=== PATIENT | male | born 1940 | race Caucasian/White ===

== ENCOUNTER → 2016-05-17 | Outpatient (CLI) | payer MEDICARE, OTHER | LOC: GMAH 11:31 | PROVIDERS: ATTEND Family Medicine | DX: E78.2 Mixed hyperlipidemia (principal); Z12.5 Encounter for screening for malignant neoplasm of prostate | CPT/HCPCS: 84443; 84550; G0103 ==

== ENCOUNTER 2016-09-16 13:37 | Emergency (ER) | payer MEDICARE, OTHER ==
[2016-09-16] MEDS ORDERED: ASPIRIN TABLET 325 MG TAB PO ONE (13:43)
[2016-09-16] MEDS ORDERED: ONDANSETRON INJ 4 MG/2 ML VIAL IV ONE (13:43)
[2016-09-16] MEDS ORDERED: SODIUM CHLORIDE 0.9% (FLUSH) 10 ML SYG IV PRN (13:43)
[2016-09-16] MEDS ORDERED: LIDOCAINE VIS-MYLANTA 30 ML UD PO ONE (13:44)
[2016-09-16 14:01] VITALS: TEMP 95.6
--- NOTE | 2016-09-16 14:23 | RAD ---
2-VIEW CHEST X-RAY. DATE: 09/16/2016 1:44 PM CDT INDICATION: MAIN TECHNIQUE: Frontal and lateral views of the chest were performed. COMPARISON:Chest x-ray 03/20/16 FINDINGS: Bilateral calcified hilar lymphadenopathy. Rounded opacities overlying the left lower thorax, overlying the patient on lateral view. Probable emphysema. No focal airspace disease. Stable cardiac silhouette within normal limits. Diffuse osteopenia. IMPRESSION: Emphysema with granulomatous disease. Electronically signed by: Lety Deal MD 09/16/2016 2:23 PM CDT
--- NOTE | 2016-09-16 14:56 | ED.PDOC ---
History of Present Illness - General Chief Complaint: GI Problem Stated Complaint: heartburn,belching Time Seen by Provider: 09/16/16 13:42 Source: patient, RN notes reviewed, Vital Signs reviewed Additional Information: Patient states he has been noticing weakness worsening over the past several days. He presented today due to a bad case of "heartburn" following a double dose of cocoa and coffee this am. Also, he took 6 Tums to try and relieve these symptoms. This worked initially but then the symptoms worsened. Currently he denies chest pain. - History of Present Illness Timing/Duration: 1-3 hours Improving Factors: medication - Tums initially Worsening Factors: other - laying supine Associated Symptoms: weakness - has been ongoing over the past few days/weeks. Allergies/Adverse Reactions: Allergies NO KNOWN ALLERGY Allergy (Verified 03/24/16 12:35) Home Medications: Ambulatory Orders Albuterol Sulfate 1 neb INH QID PRN 05/13/12 Atorvastatin Calcium [Lipitor] 1 tablet PO BEDTIME 05/13/12 Clopidogrel Bisulfate [Plavix] 1 tablet PO DAILY 05/13/12 Tamsulosin HCl [Flomax] 1 tablet PO HS 05/13/12 Zolpidem Tartrate [Ambien] 1 tablet PO HS 05/14/12 Acetaminophen [Tylenol] 500 mg PO PRN 04/28/14 Bisoprolol/Hctz 5/6.25MG [Ziac] 1 tab PO DAILY 05/08/14 Review of Systems - Review of Systems Constitutional: States: weakness EENTM: States: throat pain - with swallowing following Tums Respiratory: States: no symptoms reported, see HPI Cardiology: States: no symptoms reported Gastrointestinal/Abdominal: States: no symptoms reported Genitourinary: States: no symptoms reported Musculoskeletal: States: no symptoms reported Skin: States: no symptoms reported Neurological: States: weakness Endocrine: States: no symptoms reported Hematologic/Lymphatic: States: no symptoms reported Past Medical History (General) - Patient Medical History Hx Seizures: No Hx Stroke: No Hx Dementia: No Hx Asthma: No Hx of COPD: Yes Hx Cardiac Disorders: Yes - stent Hx Congestive Heart Failure: No Hx Pacemaker: No Hx Hypertension: Yes Hx Thyroid Disease: No Hx Diabetes: No Hx Gastroesophageal Reflux: No Hx Renal Disease: No Hx Cancer: No Hx of HIV: No Hx Hepatitis C: No Hx MRSA: No - Vaccination History Hx Tetanus, Diphtheria Vaccination: No Hx Influenza Vaccination: Yes Hx Pneumococcal Vaccination: Yes - Social History Hx Tobacco Use: Yes Hx Chewing Tobacco Use: No Hx Alcohol Use: No Hx Substance Use: No Hx Substance Use Treatment: No Hx Depression: No Hx Physical Abuse: No Hx Emotional Abuse: No Hx Suspected Abuse: No - Female History Patient : No Family Medical History - Family History Father Family History: Unknown Living Status: Hx Family Asthma: No Hx Cardiac Disease: Yes Hx Family Cancer: Yes Physical Exam - Physical Exam General Appearance: Alert, Comfortable, Frail, No apparent distress Eye Exam: bilateral normal Ears, Nose, Throat: hearing grossly normal, normal ENT inspection Neck: non-tender, full range of motion, supple, normal inspection Respiratory: no respiratory distress, decreased breath sounds - diffusely consistent with emphysema Cardiovascular/Chest: bradycardia, systolic murmur Gastrointestinal/Abdominal: non tender, soft Back Exam: normal inspection Extremity: normal range of motion, non-tender, normal inspection Neurologic: private detective II-XII nml as tested, no motor/sensory deficits, alert, normal mood/affect, oriented x 3 Skin Exam: normal color Lymphatic: no adenopathy Progress - Progress Progress: 09/16/16 15:00 Heartburn symptoms improved. Delta Troponin negative. Doubt ACS. However, Patient's murmur and bradycardia are concerning for possible Aortic Stenosis and possible early sick sinus syndrome. Electrolytes normal. Patient adamant that the wants to go home and he would prefer to follow-up with his primary care provider. He states he needs to get home to his who has MS. 09/16/16 15:53 Patient needed assistance to ambulate to bathroom. I am not comfortable with him going home. I discussed my recommendation that he be transferred to a facility with Cardiology consultation availability for an expedited cardiac assessment to include an Echocardiogram and telemetry overnight. Patient agreeable. Dr. Kingsley De La Cruz at [facility] accepted transfer. - Results/Orders Results/Orders: 09/16/16 13:43 IV Care:Saline Lock per Protoc QSHIFT Telemetry .ONCE Sodium Chloride 0.9% (Flush) [Saline Flush Syringe] 10 ml IV PRN PRN EKG Assessment ONCE EKG Stat Pulse Ox Stat Pulse Oximetry Assessment DAILY 09/16/16 15:03 CARDIAC ENZYME GROUP Stat Laboratory Results - last 24 hr 09/16/16 09/16/16 13:43 15:03 WBC 4.2 L RBC 3.78 L Hgb 12.3 L Hct 36.0 L MCV 95.4 H MCH 32.5 H MCHC 34.2 RDW 15.0 H Plt Count 157 MPV 6.9 L Absolute Neuts (auto) 2.40 Absolute Lymphs (auto) 1.00 Absolute Monos (auto) 0.50 Absolute Eos (auto) 0.30 Absolute Basos (auto) 0.00 Neutrophils % 56.6 Lymphocytes % 23.6 Monocytes % 11.8 H Eosinophils % 6.9 H Basophils % 1.1 PT 10.2 INR 0.900 PTT (SP) 48.5 H Sodium 133 L Potassium 4.0 Chloride 97 L Carbon Dioxide 30 Anion Gap 10.0 L BUN 9 Creatinine 0.86 BUN/Creatinine Ratio 10.5 Random Glucose 112 H Serum Osmolality 265.8 L Calcium 9.5 Magnesium 1.8 Total Bilirubin 0.7 Direct Bilirubin 0.2 Indirect Bilirubin 0.5 AST 23 ALT 18 Alkaline Phosphatase 84 Creatine Kinase 85 84 CK-MB (CK-2) 3.4 CK-MB (CK-2) % Not Reportable Troponin I < 0.02 < 0.02 B-Natriuretic Peptide 266.0 H* Serum Total Protein 6.5 Albumin 4.0 09/16/16 09/16/16 09/16/16 13:58 15:04 15:20 Temperature 95.6 F L Pulse Rate [ 58 L 55 L 55 L Right Brachial] Respiratory 16 16 Rate Blood Pressure 166/73 179/77 [Right Arm] O2 Sat by Pulse 99 98 Oximetry 09/16/16 15:22 Temperature Pulse Rate [ 58 L Right Brachial] Respiratory 16 Rate Blood Pressure 178/74 [Right Arm] O2 Sat by Pulse 98 Oximetry - EKG/XRAY/CT EKG: Rogelio - 49 bpm with 1st degree AV block, Sinus XRAY: chest - Emphysema, stable compared with Feb. Departure - Departure Clinical Impression: Heartburn symptom, Weakness generalized, Murmur, cardiac, Bradycardia, Hypertension, uncontrolled Time of Disposition: 16:20 Disposition: Transfer to Hospital Condition: Fair Departure Forms: ED Discharge - Pt. Copy, Patient Portal Self Enrollment Instructions: DI for Heartburn, DI for Heart Murmur-Adult, DI for Bradycardia Referrals: Cordell Ferguson MD [Primary Care Provider] - 1-5 Days Home Medications: Ambulatory Orders Albuterol Sulfate 1 neb INH QID PRN 05/13/12 Atorvastatin Calcium [Lipitor] 1 tablet PO BEDTIME 05/13/12 Clopidogrel Bisulfate [Plavix] 1 tablet PO DAILY 05/13/12 Tamsulosin HCl [Flomax] 1 tablet PO HS 05/13/12 Zolpidem Tartrate [Ambien] 1 tablet PO HS 05/14/12 Acetaminophen [Tylenol] 500 mg PO PRN 04/28/14 Bisoprolol/Hctz 5/6.25MG [Ziac] 1 tab PO DAILY 05/08/14 Additional Instructions: I recommend you obtain Zantac over the counter and take it once or twice a day to help with heartburn. Avoid Tums. You need to follow-up with your primary care provider to discuss the murmur that was heard as well as your low heart rate. You should be referred to a Softball Coach for an echocardiogram (Ultrasound of the heart) as well as an evaluation given your low heart rate and elevated blood pressure. You may also benefit from seeing a Neurologist and a Physical Therapist to help with your gait/walking. Return to ER if your condition worsens. Transfer to Outside Facility - Transfer Information Accepting Provider:: Dr. Kingsley De La Cruz Accepting Facility: [facility] Reason for Transfer: required specialist not available - Cardiology
[2016-09-16 15:04] VITALS: O2SAT 98
[2016-09-16 17:39] VITALS: BP 178/94
== END 2016-09-16 17:39 | disposition short-term general hospital (02) ==
LOC: ER 13:37
DX: R12 Heartburn (principal); R01.1 Cardiac murmur, unspecified; R00.1 Bradycardia, unspecified; I10 Essential (primary) hypertension; I44.0 Atrioventricular block, first degree; Z87.891 Personal history of nicotine dependence; Z79.02 Long term (current) use of antithrombotics/antiplatelets; Z79.899 Other long term (current) drug therapy

== ENCOUNTER 2016-09-27 11:44 | Inpatient (IN) | payer MEDICARE, OTHER ==
--- NOTE | 2016-09-27 12:20 | RAD ---
EXAM DESCRIPTION: Chest,1 View CLINICAL HISTORY: cough, weakness COMPARISON: None available TECHNIQUE: AP portable chest FINDINGS: The lungs are clear. There is no infiltrate or effusion. The heart is normal size. Mild hyperexpansion the chest is observed. Orthopedic anchors are observed in the left shoulder IMPRESSION: Mild hyperexpansion of the chest is observed. No acute infiltrate is detected. Electronically signed by: Tim Walls MD 09/27/2016 12:20 PM CDT
--- NOTE | 2016-09-27 12:26 | ED.PDOC ---
History of Present Illness - General Chief Complaint: General Stated Complaint: Weakness, dizziness, syncopal episode Time Seen by Provider: 09/27/16 12:21 Source: patient Additional Information: PT WAS AT HOME APPARENTLY SITTING ON COUCH WHEN HE "PASSED OUT". PT DOES NOT REMEMBER EPISODE. NO REPORTED SZ ACTIVITY, RESOLVED SPONTANEOUSLY - History of Present Illness Severity: moderate Improving Factors: nothing Worsening Factors: nothing Associated Symptoms: weakness, other - PT REPORTS HAS NOT BEEN WELL PAST 2-3 WEEKS WITH PROGRESSIVE WEAKNESS AND DIZZINES, Allergies/Adverse Reactions: Allergies NO KNOWN ALLERGY Allergy (Verified 09/27/16 11:56) Home Medications: Ambulatory Orders Albuterol Sulfate 1 neb INH QID PRN 05/13/12 Atorvastatin Calcium [Lipitor] 1 tablet PO BEDTIME 05/13/12 Clopidogrel Bisulfate [Plavix] 1 tablet PO DAILY 05/13/12 Tamsulosin HCl [Flomax] 1 tablet PO HS 05/13/12 Zolpidem Tartrate [Ambien] 1 tablet PO HS 05/14/12 Acetaminophen [Tylenol] 500 mg PO PRN 04/28/14 Bisoprolol/Hctz 5/6.25MG [Ziac] 1 tab PO DAILY 05/08/14 Review of Systems - Review of Systems Constitutional: States: weakness. Denies: chills, fever EENTM: States: no symptoms reported Respiratory: States: cough, short of breath, other - RESP REPORTED AT BASELINE, COUGH PROD OF CLEAR SPUTUM. Denies: wheezing Cardiology: States: syncope. Denies: chest pain, palpitations Gastrointestinal/Abdominal: Denies: abdominal pain, nausea, vomiting Genitourinary: States: no symptoms reported Musculoskeletal: States: no symptoms reported Skin: States: no symptoms reported Neurological: States: weakness - GENERALIZED. Denies: headache, paresthesia, seizure Endocrine: States: no symptoms reported Hematologic/Lymphatic: States: no symptoms reported Past Medical History (General) - Patient Medical History Hx Seizures: No Hx Stroke: No Hx Dementia: No Hx Asthma: No Hx of COPD: Yes Hx Cardiac Disorders: Yes - stent Hx Congestive Heart Failure: No Hx Pacemaker: No Hx Hypertension: Yes Hx Thyroid Disease: No Hx Diabetes: No Hx Gastroesophageal Reflux: No Hx Renal Disease: No Hx Cancer: No Hx of HIV: No Hx Hepatitis C: No Hx MRSA: No - Vaccination History Hx Tetanus, Diphtheria Vaccination: No Hx Influenza Vaccination: Yes Hx Pneumococcal Vaccination: Yes - Social History Hx Tobacco Use: Yes - Quit 2001 Hx Chewing Tobacco Use: No Hx Alcohol Use: No Hx Substance Use: No Hx Substance Use Treatment: No Hx Depression: No Hx Physical Abuse: No Hx Emotional Abuse: No Hx Suspected Abuse: No - Female History Patient : No Family Medical History - Family History Father Family History: Unknown Living Status: Hx Family Asthma: No Hx Cardiac Disease: Yes Hx Family Cancer: Yes Physical Exam - Physical Exam General Appearance: Other - THIN, FRAIL APPEARING MILD RESP DISTRESS Eye Exam: bilateral normal Ears, Nose, Throat: hearing grossly normal, normal ENT inspection Neck: non-tender, full range of motion, supple Respiratory: lungs clear, other - DIMINISHED MATTHEW, NO W/R/R Cardiovascular/Chest: regular rate, rhythm, other - 2/6 TIP Gastrointestinal/Abdominal: non tender, soft, no organomegaly Back Exam: normal inspection, no CVA tenderness Neurologic: alert, normal mood/affect Skin Exam: normal color, warm/dry, other - SOME AREAS OF CHRONIC ECCHYMOSIS Lymphatic: no adenopathy Progress - Progress Progress: 09/27/16 14:22 SATS REMAIN GOOD. PT STATES HE FEELS LIKE HE'S HAVING MORE TROUBLE THAN USUAL BREATHING - EKG/XRAY/CT EKG: Sinus - RATE 87, NL AXIS, NL INTERVALS, NON SPECIFIC ST WAVE CHANGES, NAIP. COMPARISON 09/16/16, ST SEGMENT CHANGES IN INF LEADS ARE NEW. XRAY: chest - COPD, CED Procedures - Additional Procedures Progress: O2 SAT 97% RA, NL Departure - Departure Clinical Impression: COPD exacerbation Syncope Qualifiers: Encounter type: initial encounter Time of Disposition: 14:26 - D/W [facility] OBSERVE Disposition: Admit Patient Condition: Fair Departure Forms: ED Discharge - Pt. Copy, Patient Portal Self Enrollment Referrals: Cordell Ferguson MD [Primary Care Provider] - 1-2 Weeks Home Medications: Ambulatory Orders Albuterol Sulfate 1 neb INH QID PRN 05/13/12 Atorvastatin Calcium [Lipitor] 1 tablet PO BEDTIME 05/13/12 Clopidogrel Bisulfate [Plavix] 1 tablet PO DAILY 05/13/12 Tamsulosin HCl [Flomax] 1 tablet PO HS 05/13/12 Zolpidem Tartrate [Ambien] 1 tablet PO HS 05/14/12 Acetaminophen [Tylenol] 500 mg PO PRN 04/28/14 Bisoprolol/Hctz 5/6.25MG [Ziac] 1 tab PO DAILY 05/08/14
--- NOTE | 2016-09-27 13:00 | CT ---
Procedure: CT HEAD WITHOUT IV CONTRAST Exam date: 09/27/2016 12:33 PM CDT Ordering Provider: Calos Breen Clinical Indication: syncopal episode, weakness, dizziness Comparison: None Technique: Using a helical scanner, sequential axial imaging of the brain was obtained without the administration of intravenous contrast. The exam was obtained from the skull base to vertex. This exam was performed according to our departmental dose-optimization program, which includes automated exposure control, adjustment of the mA and/or kV according to patient size and/or use of iterative reconstruction technique. Findings: Patchy, diffuse subcortical white matter hypoattenuations, nonspecific yet most suggestive of microvascular ischemic change. Global parenchymal volume loss as well as intracranial atherosclerosis. There is no midline shift or hydrocephalus. There is no acute intracranial hemorrhage or mass effect. There is no CT evidence for acute cortical infarct. The calvarium is intact. There is no fracture. There is no lytic or sclerotic lesion. The visualized paranasal sinuses and mastoid air cells are clear. IMPRESSION: 1. Nonacute CT scan of the brain without intravenous contrast administration. 2. Global parenchymal volume loss and microvascular ischemic changes. Electronically signed by: Hector Goldberg MD 09/27/2016 1:00 PM CDT
--- NOTE | 2016-09-27 13:47 | RAD ---
EXAM DESCRIPTION: Chest,1 View CLINICAL HISTORY: SOB, HX COPD COMPARISON: 27 Sep 2016 TECHNIQUE: Lateral view of the chest FINDINGS: Calcified granulomas are observed in the hilar regions. The chest is hyperexpanded. No pleural fluid is seen. Coronary artery stent is observed anteriorly. IMPRESSION: Exam demonstrates evidence of prior granulomatous disease and hyperexpansion of the chest. Electronically signed by: Tmi Walls MD 09/27/2016 1:46 PM CDT
[2016-09-27] MEDS ORDERED: methylPREDNISolone SODIUM SUC 125 MG/2 ML VIAL IV ONE (14:24)
--- NOTE | 2016-09-27 15:43 | HP ---
SUPERVISING PHYSICIAN: Guillermo Hale M.D. CHIEF COMPLAINT: Syncopal episode and shortness of breath. HISTORY OF PRESENT ILLNESS: This is a 75 year-old male patient who presented to the Emergency Room today after a witnessed syncopal episode by his . She told the Emergency Room physician he just passed out and it resolved spontaneously. The patient complained of extreme shortness of breath as well as hurting all over and having a difficult time remembering things as well as extreme weakness and struggling to move from his chair to the bed that has gone on for about a month. He has an extensive history of emphysema. He stated that all he could remember from the incident earlier today was that he just felt extremely short of breath and could not get up and move due to that shortness of breath. In the Emergency Room, a CT of the head was done and per radiologic interpretation shows nonacute CT scan of the brain without intravenous contrast and global parenchymal volume loss, and microvascular ischemic changes. Chest x-ray per radiology interpretation showed emphysematous lungs. Laboratory had a WBC of 13, hemoglobin 15, hematocrit 44.2 , BUN 19, creatinine 0.90, glucose 118. Total bilirubin 1.1, direct bilirubin 0.3, creatinine kinase was 257, CK-MB was 5.1 with troponin 0.03. BNP was 198. Vital signs in the Emergency Room had a temperature of 100.2 with a heart rate in the 90s. Blood pressure was stable and although his respiratory rate only got up to 22, he was noticeably dyspneic at rest. His O2 sats were 95% and he does wear oxygen at all times. I was called for admission. PAST MEDICAL HISTORY: 1. Hyperlipidemia. 2. Hypertension. 3. Coronary artery disease status post myocardial infarction and stent in 2005. 4. Benign prostatic hypertrophy. 5. Urinary urgency. 6. Chronic obstructive pulmonary disease. 7. Gastroesophageal reflux disease. PAST SURGICAL HISTORY: 1. Right knee replacement. 2. Right shoulder surgery. 3. Left rotator cuff repair. 4. Abdominal surgery due to peptic ulcer disease. 5. Right sided endarterectomy. 6. Tonsillectomy. 7. Bilateral cataract removal. CURRENT MEDICATIONS: Per the EMR and awaiting verification. ALLERGIES: NO KNOWN DRUG ALLERGIES. SOCIAL HISTORY: He smoked 3 packs of cigarettes a day for over 25 years but quit about 20 years ago. He denies any ETOH or illicit drug use. He is and lives in [place]. His is wheelchair bound. REVIEW OF SYSTEMS: Positive for significant weight loss of over 25 pounds over the last 2 to 3 months and positive for fever and chills. HEENT: Denies sinus symptoms, ear pain, vision changes or sore throat. RESPIRATORY: As per History of Present Illness. CARDIAC: Denies chest pain, palpitations or tachycardia. GASTROINTESTINAL: Denies abdominal pain, nausea, vomiting or diarrhea. EXTREMITIES: No cyanosis, clubbing or edema. NEUROLOGIC: Positive for weakness. Negative for dizziness or seizures. PHYSICAL EXAMINATION: VITAL SIGNS: Temperature 97.7, pulse rate 87, blood pressure 122/77, respiratory rate 20, O2 sat is 94%. GENERAL: This is a 75 year-old thin male patient who is lying in his hospital bed. He is somewhat dyspneic at rest. HEENT: Normocephalic and atraumatic. Pupils are equal and reactive. Oropharynx is clear. NECK: Supple without mass. There is no jugular venous distention. CHEST: Very diminished breath sounds throughout. There are a few expiratory wheezes. There is equal rise and fall of the chest with inspiration and expiration. Accessory muscles in use. CARDIOVASCULAR: Regular rate and rhythm. ABDOMEN: Soft, nondistended, non-tender. Bowel sounds are positive. EXTREMITIES: No cyanosis, clubbing or edema. NEUROLOGIC: He is awake, alert and oriented times three. SKIN: There are no lesions or rashes noted. LABORATORY: Labs and films are as per the history of present illness. ASSESSMENT: 1. Acute exacerbation of chronic obstructive pulmonary disease with increased work of breathing and dyspnea at rest. 2. Witnessed syncopal episode. 3. Leukocytosis. 4. Weight loss of greater than 25 pounds over the last 2 to 3 months. 5. Hypertension. 6. Coronary artery disease. 7. Benign prostatic hypertrophy. PLAN: We will admit the patient to the hospital. I have started him on breathing treatments as well as Solu-Medrol taper. He has also been started on Rocephin. We have also done blood cultures and I will do a sputum culture. We started him on Ceftriaxone and Azithromycin. Protonix has been given for ulcer prophylaxis as well as Lovenox for DVT prophylaxis. His home medications have been restarted. AM labs have been done as well as I will do a CT of the chest given his extensive history of emphysema and his sudden weight loss over the last several months. Otherwise we will continue to monitor the patient closely and followup as needed. Dr. Hale is the collaborating physician available for consultation. #[id number] [facility]
[2016-09-27] MEDS ORDERED: ALBUTEROL SULFATE 2.5 MG/3 ML VIAL NEB PRN (16:59)
[2016-09-27] MEDS ORDERED: IV SET AND CAP CHANGE INJ INJ SCH (17:00)
[2016-09-27] MEDS ORDERED: cefTRIAXone SODIUM 1 GM VIAL ONE ×2 (18:03→20:04)
[2016-09-27] MEDS ORDERED: SODIUM CHL 0.9% 50ML MIN-BAG+ 50 ML IVPB ONE ×2 (18:03→20:04)
[2016-09-27] MEDS: cefTRIAXone SODIUM 1 GM in SODIUM CHL 0.9% 50ML MIN-BAG+ 50 ML IVPB SCH (18:05)
[2016-09-27] MEDS ORDERED: IPRATROPIUM/ALBUTEROL 3 ML VIAL NEB ONE (18:58)
[2016-09-27] MEDS ORDERED: ENOXAPARIN SODIUM 40 MG/0.4 ML SYG SUBCU SCH (19:00)
[2016-09-27] MEDS: IPRATROPIUM/ALBUTEROL 3 ML VIAL INH SCH (19:55)
[2016-09-27] MEDS ORDERED: SODIUM CHLORIDE 0.9% 250ML 250 ML ONE (20:07)
[2016-09-27] MEDS ORDERED: AZITHROMYCIN IV 500 MG VIAL IVPB ONE (20:07)
[2016-09-27] MEDS: AZITHROMYCIN IV 500 MG in SODIUM CHLORIDE 0.9% 250ML 250 ML IVPB SCH (20:28)
[2016-09-27] MEDS: SODIUM CHLORIDE 0.9% (FLUSH) 10 ML SYG IV PRN (20:28)
[2016-09-27] MEDS: DONEPEZIL HCL 5 MG TAB PO SCH (20:30)
[2016-09-27] MEDS: guaiFENesin ER TAB 600 MG TAB PO SCH (20:31)
[2016-09-27] MEDS ORDERED: ATORVASTATIN CALCIUM PO SCH (21:00)
[2016-09-27] MEDS: methylPREDNISolone SODIUM SUC 125 MG/2 ML VIAL IV SCH (22:19)
[2016-09-28] MEDS: methylPREDNISolone SODIUM SUC 125 MG/2 ML VIAL IV SCH ×3 (05:22→21:24)
[2016-09-28] MEDS: PANTOPRAZOLE SODIUM IV 40 MG VIAL IV SCH (05:41)
[2016-09-28] MEDS: cefTRIAXone SODIUM 1 GM in SODIUM CHL 0.9% 50ML MIN-BAG+ 50 ML IVPB SCH ×2 (05:46→17:52)
--- NOTE | 2016-09-28 07:30 | RAD ---
Procedure: XR CHEST 1 VIEW Exam Date: 09/28/2016 Ordering Provider: LEIDY MURPHY Clinical Indication: copd Comparison: 09/27/2016 Findings: Cardiac silhouette: Normal Pulmonary vasculature : Normal Mediastinal contour: Normal Aortic contour: Aortic calcification Focal lung consolidation: No focal lung consolidation. Left basilar subsegmental atelectasis/scarring. Changes of COPD. Evidence of prior granulomatous disease. Pleural effusion: None Pneumothorax: None Acute bony or soft tissue abnormality: None Impression: 1. No acute abnormalities in the chest. Electronically signed by: Philip Maldonado MD 09/28/2016 7:30 AM CDT
[2016-09-28] MEDS: IPRATROPIUM/ALBUTEROL 3 ML VIAL INH SCH ×4 (08:25→20:15)
[2016-09-28] MEDS: TAMSULOSIN 0.4 MG CAP PO SCH (08:47)
[2016-09-28] MEDS: guaiFENesin ER TAB 600 MG TAB PO SCH ×2 (08:47→21:23)
[2016-09-28] MEDS: CLOPIDOGREL 75 MG TAB PO SCH (08:47)
[2016-09-28] MEDS: LISINOPRIL 10 MG TAB PO SCH (08:47)
--- NOTE | 2016-09-28 10:35 | CT ---
EXAM DESCRIPTION: Chest w/Contrast CLINICAL HISTORY: wt loss; copd COMPARISON: Chest radiograph earlier same day. CT chest 05/07/2014 TECHNIQUE: Multiple axial images of the chest following intravenous contrast. Multiplanar reconstructions were provided. This exam was performed according to our departmental dose-optimization program, which includes automated exposure control, adjustment of the mA and/or kV according to patient size and/or use of iterative reconstruction technique. FINDINGS: Lungs: Severe emphysema. There is a new 7 mm nodule in the inferior right lower lobe on image 60. Scattered calcified granulomas are present. Mediastinum: The heart is normal in size. 4.0 cm aneurysmal dilatation of the ascending thoracic aorta is again demonstrated. Severe atherosclerosis throughout the aortic arch and in the coronary arteries. The trachea and esophagus are unremarkable. Lymph nodes: Extensive calcified mediastinal and hilar lymph nodes. No pathologically enlarged lymph nodes based on CT size criteria. Chest wall and lower neck: No significant finding. Bones: There is no destructive osseous lesion. Multilevel degenerative changes in the thoracic spine. Upper abdomen: Multiple calcified granulomas in the spleen. Severe calcific plaque in the abdominal aorta with a 3.1 cm infrarenal abdominal aortic aneurysm. IMPRESSION: 1. Severe emphysema with new 7 mm pulmonary nodule in the inferior right lower lobe. Follow-up CT chest in 6 months recommended per guidelines below. 2. Severe coronary artery atherosclerosis. 3. Stable aneurysm of the ascending thoracic aorta measuring 4.0 cm. 4. Abdominal aortic aneurysm measuring 3.1 cm. Follow-up per guidelines below. 5. Remote granulomatous disease. 2017 Fleischner Society Recommendations for Single Solid Lung Nodule Follow-Up based on size (average of long- and short-axis diameters) 6-8 mm Low-Risk Patient: CT at 6-[address] at 18-24 months 6-8 mm High-Risk Patient: CT at 6-[address] at 18-24 months AAA Size: Follow-up Recommendation : 2.6-2.9 cm Every 5 years 3.0-3.4 cm Every 3 years 3.5-3.9 cm Every 1 year 4.0-4.4 cm Every 1 year, vascular consultation recommended 4.5-5.4 cm Every 6 months, vascular consultation recommended >5.5 cm Vascular surgery consultation recommended 1. J Vasc Surg. 2009 Jan;50(4 Suppl):S2-49 2. For aortas with maximum diameter of 2.6-2.9 cm meeting the criteria for AAA (>50% of proximal normal segment) Electronically signed by: Jones Solis MD 09/28/2016 10:35 AM CDT
--- NOTE | 2016-09-28 12:02 | PCM.CORE ---
Physician DVT/VTE - Prophylaxis Currently: Patient already on anticoagulation therapy - Nurse DVT Assessment & Total Each Risk Factor Represents 3 Points: Age over 75 years Each Risk Factor Represents 1 Point: Medical PT at Bed Rest DVT Assessment Score: 4 - 3-4 High Risk Treatments: Early Ambulation *, Sequential Compression Device
[2016-09-28] MEDS: FLUTICASONE/SALMETEROL 100/50 1 PUFF INH INH SCH (12:57)
[2016-09-28] MEDS: TIOTROPIUM INHALER INH SCH (13:22)
[2016-09-28] MEDS ORDERED: SODIUM CHL 0.9% 50ML MIN-BAG+ 50 ML IVPB ONE (16:54)
[2016-09-28] MEDS ORDERED: cefTRIAXone SODIUM 1 GM VIAL ONE (16:54)
[2016-09-28] MEDS ORDERED: ATORVASTATIN 20 MG TAB PO ONE (19:32)
[2016-09-28] MEDS ORDERED: ENOXAPARIN SODIUM 40 MG/0.4 ML SYG SUBCU ONE (19:33)
[2016-09-28] MEDS ORDERED: SODIUM CHLORIDE 0.9% 250ML 250 ML ONE (19:33)
[2016-09-28] MEDS ORDERED: AZITHROMYCIN IV 500 MG VIAL IVPB ONE (19:33)
[2016-09-28] MEDS: AZITHROMYCIN IV 500 MG in SODIUM CHLORIDE 0.9% 250ML 250 ML IVPB SCH (20:07)
[2016-09-28] MEDS: ATORVASTATIN 20 MG TAB PO SCH (21:23)
[2016-09-28] MEDS: ENOXAPARIN SODIUM 40 MG/0.4 ML SYG SUBCU SCH (21:23)
[2016-09-28] MEDS: DONEPEZIL HCL 5 MG TAB PO SCH (21:23)
[2016-09-28] MEDS: ALUMINUM & MAGNESIUM HYDROXIDE 30 ML UD PO PRN (22:52)
[2016-09-29] MEDS ORDERED: SODIUM CHL 0.9% 50ML MIN-BAG+ 50 ML IVPB ONE ×2 (01:08→19:16)
[2016-09-29] MEDS ORDERED: cefTRIAXone SODIUM 1 GM VIAL ONE ×2 (01:08→19:17)
[2016-09-29] MEDS: cefTRIAXone SODIUM 1 GM in SODIUM CHL 0.9% 50ML MIN-BAG+ 50 ML IVPB SCH ×2 (05:51→18:36)
[2016-09-29] MEDS: SODIUM CHLORIDE 0.9% (FLUSH) 10 ML SYG IV PRN (05:54)
[2016-09-29] MEDS: methylPREDNISolone SODIUM SUC 125 MG/2 ML VIAL IV SCH ×2 (05:54→15:48)
[2016-09-29] MEDS: PANTOPRAZOLE SODIUM IV 40 MG VIAL IV SCH (05:55)
--- NOTE | 2016-09-29 08:32 | PN ---
SUPERVISING PHYSICIAN: Vlad Elkins MD DATE: 09/28/16 SUBJECTIVE: The patient is sitting up in his bed. He has friends at his bedside. He is in mild respiratory distress and occasionally has to speak in short phrases. He denies chest pain, nausea or vomiting. OBJECTIVE: VITAL SIGNS: Afebrile. Heart rate 91. Blood pressure 138/73. Respiratory rate 20. O2 saturation 93%. LUNGS: Scattered rhonchi throughout with some expiratory wheezes. CARDIAC: Regular rate and rhythm. ABDOMEN: Soft, nontender, nondistended. Bowel sounds are positive. EXTREMITIES: No cyanosis, clubbing or edema. NEUROLOGIC: Awake, alert and oriented times three. He does get confused at times when answering some questions. He re-orients easily. LABORATORY: WBC 7.8, hemoglobin 13.4, hematocrit 39.8, neutrophils 89.2. BUN 28, glucose 159. Preliminary blood cultures show no growth after 24 hours. Chest x-ray shows no acute abnormalities of the chest. Chest CT per radiologic interpretation shows: 1. Severe emphysema with a new 7 mm pulmonary nodule in the inferior right lower lobe. 2. Severe coronary artery atherosclerosis. 3. 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 4. Abdominal aortic aneurysm measuring 3.1 cm. 5. Remote granulomatous disease. All other labs and films have been reviewed via the EMR. ASSESSMENT: 1. Acute exacerbation of chronic obstructive pulmonary disease with increased work of breathing and dyspnea at rest. 2. New pulmonary nodule per CT scan. 3. Witnessed syncopal episode. 4. Leukocytosis. 5. Weight loss of greater than 25 pounds over the last 2 to 3 months. 6. Hypertension. 7. Coronary artery disease. 8. Benign prostatic hypertrophy. PLAN: We will continue present supportive care. I have ordered lab work in the morning as well as CPK. He will need a pulmonary referral on discharge for the pulmonary nodule. I have added Restoril to help him sleep at night. I have encouraged good pulmonary hygiene. We will continue to monitor the patient closely and followup as needed. #[id number] [facility]
[2016-09-29] MEDS: FLUTICASONE/SALMETEROL 100/50 1 PUFF INH INH SCH (08:34)
[2016-09-29] MEDS: IPRATROPIUM/ALBUTEROL 3 ML VIAL INH SCH ×4 (08:34→20:51)
[2016-09-29] MEDS: TIOTROPIUM INHALER INH SCH (08:34)
[2016-09-29] MEDS: LISINOPRIL 10 MG TAB PO SCH (09:26)
[2016-09-29] MEDS: TAMSULOSIN 0.4 MG CAP PO SCH (09:26)
[2016-09-29] MEDS: CLOPIDOGREL 75 MG TAB PO SCH (09:26)
[2016-09-29] MEDS: guaiFENesin ER TAB 600 MG TAB PO SCH ×3 (09:29→21:41)
[2016-09-29] MEDS ORDERED: POTASSIUM CHLORIDE 20 MEQ TAB PO ONE (09:44)
[2016-09-29] MEDS ORDERED: POTASSIUM CHLORIDE 20 MEQ TAB ONE (11:30)
[2016-09-29] MEDS: BIFIDOBACTERIUM INFANTIS 4 MG CAP PO SCH (11:52)
--- NOTE | 2016-09-29 20:04 | PN ---
DATE: 09/29/16 SUPERVISING PHYSICIAN: Vlad Elkins M.D. SUBJECTIVE: The patient is sitting up in his chair in his room. He has no complaints at this time. He continues to get very confused at times and absolutely refuses any home health assistance. He also states that he does not want to use oxygen at home. OBJECTIVE: He is afebrile, pulse rate 94, blood pressure 111/56, respiratory rate 20, O2 sat is 95% on 2 liters nasal cannula. RESPIRATORY: Continues with some scattered rhonchi throughout but there are no expiratory wheezes. CARDIAC : Regular rate and rhythm. ABDOMEN: Soft, nondistended, non-tender. Bowel sounds are positive. EXTREMITIES: No cyanosis, clubbing or edema. NEUROLOGIC: He is awake, alert and oriented times three but gets very confused sometimes with questioning as well as becoming argumentative. LABORATORY: WBCs have increased to 12.9, hemoglobin 11.7, hematocrit 34.9, neutrophils 92. Potassium 3.1, BUN 32. Preliminary blood cultures show no growth after 48 hours. All other labs and films have been reviewed via the EMR. ASSESSMENT: 1. Acute exacerbation of chronic obstructive pulmonary disease with increased work of breathing and dyspnea at rest. 2. New pulmonary nodule per CT scan. 3. Witnessed syncopal episode. 4. Leukocytosis. 5. Weight loss of greater than 25 pounds over the last 2 to 3 months. 6. Hypertension. 7. Coronary artery disease. 8. Benign prostatic hypertrophy. PLAN: We will continue present supportive care. I will repeat his lab work as well as a chest x-ray in the morning. He will need a pulmonary referral on discharge with the new pulmonary nodule. I have strongly suggested that he needs help at home with home health, but he has refused it. His does have muscular sclerosis and she does not have home health either. I think it would be very beneficial for both of them, especially given his weakness and his syncopal episodes. Hopefully Dr. Ferguson, his primary care physician, can convince him of that at some point. I have also encouraged him to wear his oxygen at home. Meanwhile we will continue to monitor the patient closely and follow as needed. Dr. Elkins is the collaborating physician available for consultation. #[id number] [facility]
[2016-09-29] MEDS ORDERED: AZITHROMYCIN 250 MG TAB PO SCH (21:00)
[2016-09-29] MEDS: DONEPEZIL HCL 5 MG TAB PO SCH (21:28)
[2016-09-29] MEDS: ATORVASTATIN 20 MG TAB PO SCH (21:28)
[2016-09-29] MEDS: ENOXAPARIN SODIUM 40 MG/0.4 ML SYG SUBCU SCH (21:28)
[2016-09-29] MEDS: SODIUM CHLORIDE 0.9% (FLUSH) 10 ML SYG IV SCH (21:29)
[2016-09-29] MEDS: ALUMINUM & MAGNESIUM HYDROXIDE 30 ML UD PO PRN (23:00)
[2016-09-30] MEDS: methylPREDNISolone SODIUM SUC 40 MG/ML VIAL IV SCH ×2 (00:19→13:48)
[2016-09-30] MEDS: SODIUM CHLORIDE 0.9% (FLUSH) 10 ML SYG IV PRN (00:20)
--- NOTE | 2016-09-30 06:12 | RAD ---
Clinical History : copd , MAIN Exam : PA and lateral views of the chest 09/30/2016 5:00 AM CDT Comparisons : Portable AP view of the chest September 28, 2016 CT pulmonary angiogram September 28, 2016 Findings : Moderate emphysematous changes are noted throughout the lungs bilaterally. There is flattening of the diaphragms . The lungs are clear without focal consolidation or pleural effusion. The heart is normal in size. The mediastinal contours are normal in appearance. There are vascular calcifications along the aortic arch. The thoracic spine is age appropriate. The shoulders are unremarkable. Limited evaluation of the upper abdomen demonstrates no gross abnormalities. Impression: 1. No acute cardiopulmonary disease (stable appearing chest). 2. Stable emphysema. Electronically signed by: Luiz Law MD 09/30/2016 6:12 AM CDT
[2016-09-30] MEDS ORDERED: SODIUM CHL 0.9% 50ML MIN-BAG+ 50 ML IVPB ONE (06:21)
[2016-09-30] MEDS ORDERED: cefTRIAXone SODIUM 1 GM VIAL ONE (06:22)
[2016-09-30] MEDS ORDERED: PANTOPRAZOLE SODIUM TAB 40 MG PO SCH (06:30)
[2016-09-30] MEDS: cefTRIAXone SODIUM 1 GM in SODIUM CHL 0.9% 50ML MIN-BAG+ 50 ML IVPB SCH (06:37)
[2016-09-30] MEDS: IPRATROPIUM/ALBUTEROL 3 ML VIAL INH SCH ×2 (08:19→13:43)
[2016-09-30] MEDS: TIOTROPIUM INHALER INH SCH (08:19)
[2016-09-30] MEDS: FLUTICASONE/SALMETEROL 100/50 1 PUFF INH INH SCH (08:19)
[2016-09-30] MEDS: TAMSULOSIN 0.4 MG CAP PO SCH (09:31)
[2016-09-30] MEDS: guaiFENesin ER TAB 600 MG TAB PO SCH (09:31)
[2016-09-30] MEDS: CLOPIDOGREL 75 MG TAB PO SCH (09:31)
[2016-09-30] MEDS: BIFIDOBACTERIUM INFANTIS 4 MG CAP PO SCH (09:31)
[2016-09-30] MEDS: SODIUM CHLORIDE 0.9% (FLUSH) 10 ML SYG IV SCH (09:32)
[2016-09-30] MEDS: LISINOPRIL 10 MG TAB PO SCH (09:36)
[2016-09-30 13:44] VITALS: BP 123/53; TEMP 98
[2016-09-30 14:53] VITALS: O2SAT 98
--- NOTE | 2016-10-07 19:46 | DS ---
SUPERVISING PHYSICIAN: Vlad Elkins M.D. DISCHARGE DIAGNOSIS: 1. Acute exacerbation of chronic obstructive pulmonary disease with increased work of breathing and dyspnea at rest, improved. 2. New pulmonary nodule noted on CT scan requiring continued followup. 3. Witnessed syncopal episode. 4. Leukocytosis. 5. Weight loss of greater than 25 pounds over the last 2 to 3 months. 6. Hypertension. 7. Coronary artery disease. 8. Benign prostatic hypertrophy. HISTORY OF PRESENT ILLNESS: Mr. Heath is a 75 year-old male patient who presented to the Emergency Room today after a witnessed syncopal episode by his . She told the Emergency Room physician he just passed out and it resolved spontaneously. The patient complained of extreme shortness of breath as well as hurting all over and having a difficult time remembering things as well as extreme weakness and struggling to move from his chair to the bed that has been going on for about a month. He does have a history of extensive emphysema. He stated that all he could remember from the incident earlier on day before admission was that he felt extremely short of breath and could not get up and move due to the shortness of breath. In the Emergency Room , a CT of the head was done and per radiologic interpretation shows nonacute CT scan of the brain without intravenous contrast and global parenchymal volume loss, and microvascular ischemic changes. Chest x-ray per radiology interpretation was completed showing emphysematous changes of the lungs. Laboratory studies included a CBC showing a white count of 13, hemoglobin 15, hematocrit 44.2, BUN 19, creatinine 0.90, glucose 118. Troponin was 0.03, BNP was slightly elevated at 198. Vital signs in the Emergency Room showed a temperature of 100.2 with a heart rate of 90. Blood pressure was stable with respirations up to 22. He was noticeably dyspneic at rest. His O2 saturations were 95% and he does wear oxygen at home. He was then admitted to the Medical/ Surgical floor in stable condition. LABORATORY: Initial white count was 13.0 with hemoglobin 15.0, hematocrit 44.2 , platelet count 257,000. After initiation of treatment and prior to discharge , white count had near normalized to 11.5, hemoglobin was stabilized at 11.9, hematocrit 35.6, platelet count within normal limits at 225,000. Differential did show a continued left shift. Coagulation studies showed a PT that was slightly elevated at 13.2 with PTT of 46.8. Chemistries on admission showed normal electrolytes as well at discharge with potassium 3.6, BUN at discharge was 27, creatinine 0.7, glucose 118 on admission and at discharge 144. Liver functions showed a slightly elevated bilirubin initially at 1.1, however this had normalized prior to discharge. He did have an initial elevated CPK of 257 with troponin 0.03. BNP was 198. MICROBIOLOGY: Two sets of blood cultures remain negative after 5 days. RADIOLOGY: Chest x-ray in the Emergency Department per radiology interpretation showed mild hyperexpansion of the chest observed but no acute infiltrate was detected. He also had a head CT in the E. R. prior to admission to the Medical/Surgical floor and per radiology interpretation there was note of patchy diffuse subcortical white matter hypoattenuations nonspecific yet mostly suggestive of microvascular ischemic changes with global parenchymal volume loss as well as intracranial atherosclerosis. There was no midline shift. No acute intracranial hemorrhage was noted. There was no CT evidence for acute cortical infarct. He had repeat chest x-ray on date of discharge per radiology interpretation showed no acute cardiopulmonary disease and stable- appearing chest with stable emphysema. HOSPITAL COURSE: Mr. Heath was admitted as noted in the History of Present Illness on 09/27/16 and started on Solu-Medrol, breathing treatments, aggressive pulmonary hygiene and antibiotics to include Rocephin and azithromycin. The patient progressed clinically well and was felt stable enough to be discharged to continue with outpatient treatment plan. At discharge, his vital signs showed temperature 98, pulse 102, blood pressure 123/ 53, satting 95% on room air, respirations 20. PLAN: The patient is discharged with instructions to have close clinical followup with Dr. Ferguson in 7 days or sooner and to have followup CT findings in regards to the pulmonary nodule with referral to a lung specialist. He is to resume home medications as directed and take new prescriptions as instructed. He was told to return to the hospital if condition failed to improve or any concerning symptoms. He will need followup in regards to the pulmonary findings on the CT again and referral likely to a lung specialist. At discharge, medications included: 1. Azithromycin 500 mg tablets for an additional 1 day. 2. Align 4 mg daily, #30. 3. Cefdinir 300 mg tablets twice a day, #12. 4. Guaifenesin 1200 mg tablet twice a day as needed. 5. Prednisone 10 mg tapering dose, #12, 1 tablet times 1, 3 tablets times 1 day and 2 tablets times 1 day and then 1 tablet daily until all gone. At discharge, the patient showed to be stable. Diet was as tolerated. He was to increase his activity as tolerated. #[id number] [facility]
== END 2016-09-30 15:10 | disposition home or self-care (01) | DRG 191 ==
LOC: ER 11:44 → MS 15:41
PROVIDERS: ADMIT Nurse Practitioner Acute Care; ATTEND Nurse Practitioner Family
PROC: BB24YZZ Computerized Tomography (CT Scan) of Bilateral Lungs using Other Contrast (ICD-10-PCS; principal; 2016-09-28)
DX: J44.1 Chronic obstructive pulmonary disease with (acute) exacerbation (principal); Z68.1 Body mass index [BMI] 19.9 or less, adult; R55 Syncope and collapse; R63.4 Abnormal weight loss; R54 Age-related physical debility; I10 Essential (primary) hypertension; I25.10 Atherosclerotic heart disease of native coronary artery without angina pectoris; E78.5 Hyperlipidemia, unspecified; I25.2 Old myocardial infarction; N40.1 Benign prostatic hyperplasia with lower urinary tract symptoms; R39.15 Urgency of urination; K21.9 Gastro-esophageal reflux disease without esophagitis; R91.1 Solitary pulmonary nodule; I71.2 Thoracic aortic aneurysm, without rupture; I71.4 Abdominal aortic aneurysm, without rupture; Z96.651 Presence of right artificial knee joint; Z87.891 Personal history of nicotine dependence; Z87.11 Personal history of peptic ulcer disease; Z79.899 Other long term (current) drug therapy; Z95.5 Presence of coronary angioplasty implant and graft

== ENCOUNTER 2016-10-08 00:10 | Inpatient (IN) | payer MEDICARE, OTHER ==
[2016-10-08] MEDS ORDERED: SODIUM CHLORIDE 0.9% 1000ML 1,000 ML IVS ONE ×2 (00:13→02:00)
[2016-10-08] MEDS ORDERED: predniSONE 20 MG TAB PO ONE (00:20)
[2016-10-08] MEDS ORDERED: KETOROLAC TROMETHAMINE INJ 30 MG/ML VIAL IV ONE (00:49)
--- NOTE | 2016-10-08 02:28 | ED.PDOC ---
History of Present Illness - General Chief Complaint: Trauma Stated Complaint: fall Time Seen by Provider: 10/08/16 00:12 Source: patient, EMS Exam Limitations: clinical condition - History of Present Illness Initial Comments: the patient is a 76-year-old male presenting to the emergency room secondary to near syncopal episode or getting up to go to the bathroom. He did have a similar syncopal episode 1-2 weeks ago and was admitted here at that time. He was having a COPD exacerbation at that time and has undergone treatment and has done better from that standpoint. The patient has experienced unexplained weight loss over the last 6 months. He also does appear to have some baseline dementia at this point. He was significantly confused at the time of arrival of EMS. Systolic blood pressures were in the 70s upon their arrival. After IV fluids and blood pressures have come up to 100 -110 on the systolic end. The patient did bump his left knee and scraped his right elbow with fall. mental status did improve significantly with improvement in the blood pressure. No fevers. No nausea, vomiting or diarrhea. He has had a mild runny nose according to him. No abdominal pain. No back pain. He does feel weak. He reports feeling weak and tired for the last 1-2 months. He is currently undergoing a workup for unexplained weight loss with Dr. Manuel. Timing/Duration: momentarily Severity: severe Improving Factors: nothing Worsening Factors: movement Associated Symptoms: loss of appetite, malaise, syncope, weakness Allergies/Adverse Reactions: Allergies NO KNOWN ALLERGY Allergy (Verified 09/27/16 11:56) Home Medications: Ambulatory Orders Albuterol Sulfate 1 neb INH Q4H PRN 05/13/12 Atorvastatin Calcium [Lipitor] 1 tablet PO BEDTIME 05/13/12 Clopidogrel Bisulfate [Plavix] 1 tablet PO DAILY 05/13/12 Tamsulosin HCl [Flomax] 1 tablet PO DAILY 05/13/12 Donepezil HCl [Aricept] 5 mg PO BEDTIME 09/27/16 Lisinopril 10 mg PO DAILY 09/27/16 Ranitidine HCl 150 mg PO BID 09/27/16 Fluticasone/Salmeterol 100/50 [Advair 100/50 Diskus] 1 puff INH DAILY 09/28/16 Tiotropium [place] Monohydrate [Spiriva Handihaler] 18 mcg IN DAILY 09/28/16 Azithromycin Tab [Zithromax Tab] 500 mg PO DAILY #1 09/30/16 Bifidobacterium Infantis [Align] 4 mg PO DAILY 09/30/16 Cefdinir 300 mg PO BID #12 cap 09/30/16 guaiFENesin ER TAB [Mucinex Tab] 1,200 mg PO BID 09/30/16 predniSONE [Prednisone] 10 mg PO DAILY #12 tab 09/30/16 Review of Systems - Review of Systems Constitutional: States: malaise, weakness EENTM: States: no symptoms reported Respiratory: States: no symptoms reported Cardiology: States: syncope Gastrointestinal/Abdominal: States: no symptoms reported Genitourinary: States: no symptoms reported Musculoskeletal: States: joint pain Skin: States: see HPI - skin tear to the right elbow approximately 1 inch in length Neurological: States: other - confused Endocrine: States: no symptoms reported All other Systems: No Change from Baseline Past Medical History (General) - Patient Medical History Hx Seizures: No Hx Stroke: No Hx Dementia: No Hx Asthma: No Hx of COPD: Yes Hx Cardiac Disorders: Yes - stent Hx Congestive Heart Failure: Yes Hx Pacemaker: No Hx Hypertension: Yes Hx Thyroid Disease: No Hx Diabetes: No Hx Gastroesophageal Reflux: No Hx Renal Disease: No Hx Cancer: No Hx of HIV: No Hx Hepatitis C: No Hx MRSA: No Surgical History: other - Vaccination History Hx Tetanus, Diphtheria Vaccination: No Hx Influenza Vaccination: Yes Hx Pneumococcal Vaccination: Yes Immunizations Up to Date: Yes - Social History Hx Tobacco Use: No Hx Chewing Tobacco Use: No Hx Alcohol Use: No Hx Substance Use: No Hx Substance Use Treatment: No Hx Depression: No Hx Physical Abuse: No Hx Emotional Abuse: No Hx Suspected Abuse: No - Activities of Daily Living Hospice Agency (if applicable):: None - Female History Patient : No Family Medical History - Family History Father Family History: Unknown Living Status: Hx Family Asthma: No Hx Cardiac Disease: Yes Hx Family Cancer: Yes Physical Exam - Physical Exam General Appearance: Other - initially drowsy and confused. He is very frail and emaciated. Eye Exam: bilateral normal Ears, Nose, Throat: hearing grossly normal, normal ENT inspection - mucous membranes are fairly dry initially. Neck: non-tender, full range of motion Respiratory: chest non-tender, lungs clear, normal breath sounds, no respiratory distress, no accessory muscle use Cardiovascular/Chest: normal peripheral pulses, no edema, other - occasional irregular beats. Peripheral Pulses: radial,right: 2+, radial,left: 2+, dorsalis pedis,right: 2+, dorsalis pedis,left: 2+, posterior tibialis,right: 2+, posterior tibialis,left: 2+ Gastrointestinal/Abdominal: non tender, soft Rectal Exam: deferred - 10 Back Exam: normal inspection, no CVA tenderness Extremity: normal range of motion, no pedal edema, no calf tenderness, normal capillary refill, other - the patient does have some tenderness to palpation over the left patella. He does also have some mild discomfort in the right elbow with movement for the skin tear is. Neurologic: bobbin winder II-XII nml as tested, other - initially drowsy and confused. This did improve with correction of the blood pressure. He still does obviously have some mild dementia. No meningeal signs. No nuchal rigidity. Skin Exam: pallor Comments: Vital Signs - 24 hr 10/08/16 10/08/16 10/08/16 00:12 00:17 01:17 Temperature 99.0 F Pulse Rate Pulse Rate [ 90 90 90 left radial] Respiratory 18 18 Rate Blood Pressure 94/69 90/56 [Left Arm] O2 Sat by Pulse 94 L 95 Oximetry 10/08/16 02:00 Temperature Pulse Rate 90 Pulse Rate [ 90 left radial] Respiratory 16 Rate Blood Pressure 101/56 [Left Arm] O2 Sat by Pulse 94 L Oximetry Progress - Progress Progress: 10/08/16 02:32 the patient is a 76-year-old male with hypotension and resultant altered mental status resulting in near syncope and a fall with left knee and right elbow discomfort. Source of the hypotension is uncertain. He is obviously somewhat dehydrated and probably borderline hypotensive at baseline. He does have some dementia and there is some question of the patient continuing his blood pressure medications at home in spite of being instructed not to continue them. Additionally the patient did just recently come off of a steroid taper, and I cannot say at this point that he does not definitely have some adrenal insufficiency. I have not been able to find any evidence of infection with this patient or overt congestive heart failure. the patient did have a fairly extensive workup at his last admission here for syncopal episode. Telemetry does show a few episodes of skipped beats. He does need to be monitored further on telemetry monitoring. Additionally in the morning, when help is available, he needs to be tested for tilt vital signs and ambulatory functionality. Mental status has improved significantly with rehydration. I'm uncertain if he is back to his baseline mental status at this time. - Results/Orders Results/Orders: Laboratory Tests 10/08/16 10/08/16 10/08/16 00:25 00:25 00:25 WBC 9.4 RBC 4.18 L Hgb 13.4 L Hct 40.0 L MCV 95.6 H MCH 32.0 H MCHC 33.6 RDW 14.4 Plt Count 248 MPV 7.1 L Absolute Neuts (auto) 6.90 H Absolute Lymphs (auto) 1.20 Absolute Monos (auto) 1.20 H Absolute Eos (auto) 0.10 Absolute Basos (auto) 0.00 Neutrophils % 73.3 Lymphocytes % 12.9 L Monocytes % 12.2 H Eosinophils % 1.1 Basophils % 0.5 PT 11.7 INR 1.040 PTT (SP) 27.9 Sodium 139 Potassium 3.7 Chloride 107 Carbon Dioxide 26 Anion Gap 9.7 L BUN 17 Creatinine 1.26 BUN/Creatinine Ratio 13.5 Random Glucose 107 H Serum Osmolality 279.6 Lactic Acid Calcium 8.5 Magnesium 1.9 Total Bilirubin 1.1 H AST 28 ALT 64 H Alkaline Phosphatase 83 Creatine Kinase 29 L CK-MB (CK-2) 1.6 CK-MB (CK-2) % Not Reportable Troponin I 0.05 B-Natriuretic Peptide 48.5 Serum Total Protein 5.5 L Albumin 3.0 L Globulin 2.5 Albumin/Globulin Ratio 1.2 TSH 2.19 Urine Color Urine Appearance Urine pH Ur Specific [place] Urine Protein Urine Glucose (UA) Urine Ketones Urine Blood Urine Nitrite Urine Bilirubin Urine Urobilinogen Ur Leukocyte Esterase Urine RBC Urine WBC Ur Epithelial Cells Ur Transition Epith Cell Amorphous Sediment Urine Bacteria 10/08/16 10/08/16 01:30 02:10 WBC RBC Hgb Hct MCV MCH MCHC RDW Plt Count MPV Absolute Neuts (auto) Absolute Lymphs (auto) Absolute Monos (auto) Absolute Eos (auto) Absolute Basos (auto) Neutrophils % Lymphocytes % Monocytes % Eosinophils % Basophils % PT INR PTT (SP) Sodium Potassium Chloride Carbon Dioxide Anion Gap BUN Creatinine BUN/Creatinine Ratio Random Glucose Serum Osmolality Lactic Acid 1.0 Calcium Magnesium Total Bilirubin AST ALT Alkaline Phosphatase Creatine Kinase CK-MB (CK-2) CK-MB (CK-2) % Troponin I B-Natriuretic Peptide Serum Total Protein Albumin Globulin Albumin/Globulin Ratio TSH Urine Color Yellow Urine Appearance Clear Urine pH 6.0 Ur Specific [place] 1.015 Urine Protein 30 Urine Glucose (UA) Negative Urine Ketones Negative Urine Blood Trace-intact H Urine Nitrite Negative Urine Bilirubin Negative Urine Urobilinogen 0.2 Ur Leukocyte Esterase Negative Urine RBC 3-5 H Urine WBC 0-1 Ur Epithelial Cells 0 Ur Transition Epith Cell 3-5 Amorphous Sediment Trace Urine Bacteria Rare chest x-ray shows significant emphysematous changes. No obvious infiltrate. No pneumothorax. No obvious fluid overload. X-ray of the left knee shows no evidence of fracture or dislocation. There is some arthritis and calcification of vessels. X-ray of the right elbow shows no evidence of fracture or dislocation. X-rays are interpreted by me as the radiology PACS system is having problems. EKG shows normal sinus rhythm. Poor R-wave progression in anterior leads. Mild left atrial dilation. Fairly normal LA and QT intervals. I do not believe that there is any significant ST segment depression, even though it is difficult to interpret in inferior leads due to T and P waves colliding. - EKG/XRAY/CT CT Ordered: No CT Interpretation Call Back: No Departure - Departure Clinical Impression: Acute confusional state, Near syncope Hypotension Qualifiers: Hypotension type: unspecified hypotension type Qualified Code(s): I95.9 - Hypotension, unspecified Disposition: Admit Patient Home Medications: Ambulatory Orders Albuterol Sulfate 1 neb INH Q4H PRN 05/13/12 Atorvastatin Calcium [Lipitor] 1 tablet PO BEDTIME 05/13/12 Clopidogrel Bisulfate [Plavix] 1 tablet PO DAILY 05/13/12 Tamsulosin HCl [Flomax] 1 tablet PO DAILY 05/13/12 Donepezil HCl [Aricept] 5 mg PO BEDTIME 09/27/16 Lisinopril 10 mg PO DAILY 09/27/16 Ranitidine HCl 150 mg PO BID 09/27/16 Fluticasone/Salmeterol 100/50 [Advair 100/50 Diskus] 1 puff INH DAILY 09/28/16 Tiotropium [place] Monohydrate [Spiriva Handihaler] 18 mcg IN DAILY 09/28/16 Azithromycin Tab [Zithromax Tab] 500 mg PO DAILY #1 09/30/16 Bifidobacterium Infantis [Align] 4 mg PO DAILY 09/30/16 Cefdinir 300 mg PO BID #12 cap 09/30/16 guaiFENesin ER TAB [Mucinex Tab] 1,200 mg PO BID 09/30/16 predniSONE [Prednisone] 10 mg PO DAILY #12 tab 09/30/16 Decision To Admit - Decistion To Admit Decision to Admit Reason: Medical Nature Decision to Admit Date: 10/08/16 Decision to Admit Time: 02:38
--- NOTE | 2016-10-08 02:36 | RAD ---
Procedure: XR CHEST 1 VIEW Exam Date: 10/08/2016 Ordering Provider: Hermilo Hale Clinical Indication: near syncope Comparison: 09/30/2016 Findings: Cardiac silhouette: Magnified by technique Pulmonary vasculature : Normal Mediastinal contour: Normal Aortic contour: Aortic calcification Focal lung consolidation: No focal lung consolidation. COPD/emphysema. There is evidence of prior granulomatous disease. Bibasilar scarring. Pleural effusion: None Pneumothorax: None Acute bony or soft tissue abnormality: None Impression: 1. No acute abnormalities in the chest. Electronically signed by: Philip Maldonado MD 10/08/2016 2:25 AM CDT
--- NOTE | 2016-10-08 02:41 | RAD ---
EXAM DESCRIPTION: Knee,Left Complete CLINICAL HISTORY: 76 years, Male, fall pain COMPARISON: None. FINDINGS: There is no acute fracture or dislocation. There is no focal soft tissue swelling or joint effusion. The bony alignment is normal. There are no significant degenerative changes. There are moderate vascular calcific patient's noted. There are mild tricompartmental osteoarthritic changes with joint space narrowing and osteophyte formation. These findings are most pronounced in the lateral joint space. There are no intra- articular bodies There is chondrocalcinosis of the lateral joint space. IMPRESSION: 1. No acute fracture or dislocation of the left knee. 2. Mild tricompartmental osteoarthritic changes. Electronically signed by: Luiz Law MD 10/08/2016 2:42 AM CDT Workstation: [id number]
--- NOTE | 2016-10-08 02:43 | RAD ---
Procedure: XR ELBOW 1-2 VIEWS Exam Date: 10/08/2016 Ordering Provider: Hermilo Hale Clinical Indication: fall Comparison: None FINDINGS: There is no fracture or dislocation. The articular surfaces of the right elbow are intact. No lytic or sclerotic lesions. No joint effusion. No subcutaneous gas. IMPRESSION: 1. No acute fracture or dislocation of the right elbow. Electronically signed by: Philip Maldonado MD 10/08/2016 2:44 AM CDT
[2016-10-08] MEDS ORDERED: MAGNESIUM HYDROXIDE 30 ML UD PO PRN (02:46)
[2016-10-08] MEDS ORDERED: LEVALBUTEROL NEBS 1.25 MG/3 ML VIAL NEB PRN (02:46)
[2016-10-08] MEDS ORDERED: SODIUM CHLORIDE 0.9% (FLUSH) 10 ML SYG IV PRN (02:46)
[2016-10-08] MEDS ORDERED: ACETAMINOPHEN 325 MG TAB PO PRN (02:46)
--- NOTE | 2016-10-08 02:47 | HP ---
HISTORY OF PRESENT ILLNESS: This 76 year-old white male was placed in the hospital from the Emergency Room because of an acute episode of syncopal loss of consciousness at home. Earlier in the morning, he was walking to the bathroom and found himself on the floor with injury to his right elbow. His , who has multiple sclerosis and is severely disabled, called 911 and he was picked up by EMS and brought to the Emergency Room. He was found to have a blood pressure of only 70/40. Transient level of consciousness required some ongoing observation because he had some spell where he apparently had sinus arrest and telemetry is to assist with that determination as to an etiology of his syncopal episode. No doubt significant hypotension aggravated and augmented by change in posture contributed to his syncopal episode. History of recent dementia has been noted in the past, bad emphysema recently on a course of steroids. He has lost weight of approximately 25 pounds in the last 3 or 4 months. He sees . He lives at home with his and he is the primary caregiver for her since she is wheelchair bound because of advanced multiple sclerosis. The patient is placed in the hospital for overnight observation and to ascertain if possible the cause or contribute to the diagnoses of why the weight loss and the underlying syncopal episodes. He apparently was recently in our hospital from 09/27/16 until 09/30/16 of approximately a week ago. When he returned home, he did continue on his blood pressure medications which have now been stopped in an effort to prevent his blood pressure from staying too low for too long a period of time. PAST MEDICAL HISTORY: 1. Hyperlipidemia. 2. History of hypertension. 3. Coronary artery disease status myocardial infarction and stent in 2005. 4. Benign prostatic hypertrophy. 5. Urinary urgency. 6. Chronic obstructive pulmonary disease. 7. Gastroesophageal reflux disease. 8. Now weight loss. PAST SURGICAL HISTORY: 1. Right knee replacement. 2. Right shoulder surgery. 3. Left rotator cuff repair. 4. Abdominal surgery due to peptic ulcer disease. 5. Right sided endarterectomy. 6. Tonsillectomy. 7. Bilateral cataract removal. CURRENT MEDICATIONS: Please refer to nurses' notes for a list of verified home medications. ALLERGIES: NONE KNOWN. SOCIAL HISTORY: The patient smoked about 3 packs a day for 25 years but quit about 20 years ago with significant emphysema. He is and lives in [place] with his who has multiple sclerosis. REVIEW OF SYSTEMS: Significant weight loss of over 25 pounds in the last 3 months. He did have some chills when he came into the Emergency Room earlier this morning at the time of admission. No evidence of a urinary tract infection otherwise evident. LUNGS: He has shortness of breath upon exertion and an ambulation study will be performed. CARDIOVASCULAR: No chest pains. He does not sense any palpitations, but some irregularities were noted on initial telemetry. ABDOMEN: No nausea or vomiting but his appetite is down possibly contributing to his weight loss. GENITOURINARY: Urgency and prostate enlargement contributing to flow problems. NEUROLOGIC: Complete loss of consciousness when he was walking to the bathroom earlier this morning with subsequent injury to his right elbow in the fall. PHYSICAL EXAMINATION: VITAL SIGNS: Initial temperature was afebrile but he did have a temperature up to 99 at 6:00 this morning and was afebrile subsequently. Pulse 80, blood pressure 98/57 and was down to 70/40 by EMS in the home. IV fluids helped to get his blood pressure transiently up to 121 during the parking control officer hours. His weight is stable at 54 kilos. GENERAL: The patient is fairly awake and alert at this time. He is able to answer questions normally. HEENT: Hearing and vision appears to be fairly normal. NECK: Supple. CHEST: Lungs have diminished breath sounds. CARDIOVASCULAR: Heart tones are regular without any significant gallop with diminished heart tones present. ABDOMEN: Has bowel tones. He had a good bowel movement earlier this morning. Mild tenderness in the supraumbilical region. No significant masses otherwise. No rebound tenderness noted. EXTREMITIES: Diminished muscle tone, otherwise fairly good range of motion except is does have a skin tear on his right elbow that was dressed in the Emergency Room. NEUROLOGIC: The patient is awake, alert and oriented and communicative. He is moving all extremities with no focal neurological deficits evident. LABORATORY: White count 9,400,hemoglobin 13.4 with a macrocytic hyperchromic indices. INR of 1.04. Chemistry shows potassium 3.7, BUN 17, creatinine 1.26, glucose 107, lactic acid 1. Bilirubin 1.1. Troponin 0.05, beta natriuretic peptide 48. Albumin 3. Urinalysis shows mild hematuria with rare bacteria and no urine cultures obtained. Blood cultures are negative up to this point. X-rays of the knee and elbow showed no acute bony fractures. Chest x-ray shows emphysema changes with no acute abnormalities evident. Previous history of a 7 mm right lower lobe pulmonary nodule noted on CT scan recently. Followup necessary. ASSESSMENT: 1. Acute syncopal episode with loss of consciousness probably secondary to postural hypotension walking to the bathroom possibly aggravated by antihypertensive medications and moderate dehydrated state. 2. Chronic obstructive pulmonary disease with a recent acute exacerbation currently stable. 3. Dementia by history, though mild. 4. Significant weight loss of 25 pounds in the last 2 to 3 months with continued evaluation to continue. 5. Hypotension possibly aggravated by the antihypertensive medications and the dehydrated hypovolemic state. 6. Skin tear right elbow from the fall. 7. History of an acute fall associated with the syncope. PLAN: The patient will be continued on low dose prednisone to rule out any type of an adrenal insufficiency to see if it will help some of his symptoms. Await tilt vitals. Consider a CT scan of the abdomen since I do not see one having been performed recently to contribute to the workup for the significant weight loss that he is presenting with. Social Service to assist with discharge planning since he is the primary caregiver of his with multiple sclerosis. See what resources are available to assist. Continue with telemetry and consider a Holter monitor on home discharge. Check tilt vitals as well as an ambulation study for desaturation of oxygen. Close followup necessary. #[id number] [facility]
[2016-10-08] MEDS: ALBUTEROL SULFATE 2.5 MG/3 ML VIAL NEB SCH ×5 (03:30→20:13)
[2016-10-08] MEDS: KCL 20MEQ/0.45% NS 1,000 ML IVS PRN ×2 (03:30→21:07)
[2016-10-08] MEDS: IV SET AND CAP CHANGE INJ INJ SCH (03:30)
[2016-10-08] MEDS: OMEPRAZOLE CAP 20 MG CAP PO SCH (06:13)
[2016-10-08] MEDS: GABAPENTIN 300 MG CAP PO SCH (09:30)
[2016-10-08] MEDS: predniSONE 10 MG TAB PO SCH (09:30)
--- NOTE | 2016-10-08 13:11 | CT ---
EXAM: CT ABDOMEN AND PELVIS WITHOUT AND WITH CONTRAST DATE: 10/08/2016 11:18 AM CDT INDICATION: Abnormal weight loss COMPARISON: CT chest 09/28/2016 TECHNIQUE: CT acquisition of the abdomen and pelvis without and after the intravenous administration contrast was performed. Coronal and sagittal reconstructions were performed. Further delayed images were performed. . Oral contrast none. Total radiation dose DLP: 781.73 mGy-cm FINDINGS: There is also significant respiratory motion artifact limiting evaluation. Lines, tubes and hardware: None. Lower thorax: Emphysema. Stable 1 cm right lower lobe nodule. Liver: Normal. Biliary tree: No intra- or extrahepatic biliary ductal dilation. Gallbladder: Normal. No CT evidence of gallstones. Pancreas: Fatty infiltration of the pancreas. Spleen: Multiple calcified bilomas. Adrenals: Normal. Kidneys and ureters: Left renal cyst in the midpole is slightly distorted due to motion artifact. There is bilateral mild renal cortical atrophy. No evidence of hydronephrosis. Bladder: Normal. Reproductive organs: Prostate gland is enlarged and very heterogeneous in appearance measuring 6.1 cm. There is prominence of the bilateral seminal vesicles. Gastrointestinal tract: Sigmoid diverticulosis without evidence of diverticulitis. Mild diffuse thickening of the distal rectosigmoid. Appendix: Normal. Peritoneum and retroperitoneum: No ascites or free air. No other fluid collection. Lymph nodes: Normal. Vasculature: Marked calcification of the abdominal aorta at origin of its vessels. There is aneurysmal dilation of the distal abdominal aorta measuring 3.1 cm. There is also mild dilation of the bilateral iliac vessels with extensive atherosclerosis. Bones: Scoliosis with degenerative changes of the lumbar spine. Soft tissues: Normal. IMPRESSION: Enlarged heterogeneous prostate gland can be correlated with PSA levels and/or prostate MRI. Mild diffuse thickening of the distal rectosigmoid. Recommend correlation with any recently performed colonoscopy. Abdominal aortic aneurysm measuring 3.1 cm. As per guidelines recommend follow-up with aortic ultrasound every three years. Emphysema with stable right lower lobe pulmonary nodule. Please see separately dictated report of CT chest from 09/28/2016 Probable simple left renal cyst. AAA Size: Follow-up Recommendation : 2.6-2.9 cm Every 5 years 3.0-3.4 cm Every 3 years 3.5-3.9 cm Every 1 year 4.0-4.4 cm Every 1 year, vascular consultation recommended 4.5-5.4 cm Every 6 months, vascular consultation recommended >5.5 cm Vascular surgery consultation recommended 1. J Vasc Surg. 2009 Jan;50(4 Suppl):S2-49 2. For aortas with maximum diameter of 2.6-2.9 cm meeting the criteria for AAA (>50% of proximal normal segment) Electronically signed by: Lety Deal MD 10/08/2016 1:12 PM CDT
[2016-10-08] MEDS ORDERED: ENOXAPARIN SODIUM 40 MG/0.4 ML SYG SUBCU SCH (19:00)
[2016-10-08] MEDS: MIRTAZAPINE 15 MG TAB PO SCH (21:06)
[2016-10-08] MEDS: DONEPEZIL HCL 5 MG TAB PO SCH (21:06)
[2016-10-08] MEDS: guaiFENesin ER TAB 600 MG TAB PO SCH (21:06)
[2016-10-09] MEDS: OMEPRAZOLE CAP 20 MG CAP PO SCH (06:11)
[2016-10-09] MEDS ORDERED: FLUTICASONE/SALMETEROL 100/50 1 PUFF INH INH SCH (08:00)
[2016-10-09] MEDS ORDERED: TIOTROPIUM INHALER INH SCH (08:00)
[2016-10-09] MEDS ORDERED: TAMSULOSIN 0.4 MG CAP PO SCH (09:00)
[2016-10-09] MEDS: CLOPIDOGREL 75 MG TAB PO SCH (09:47)
[2016-10-09] MEDS: predniSONE 10 MG TAB PO SCH (09:47)
[2016-10-09] MEDS: FERROUS GLUCONATE 325 MG TAB PO SCH (09:48)
[2016-10-09] MEDS: guaiFENesin ER TAB 600 MG TAB PO SCH ×2 (09:48→20:16)
[2016-10-09] MEDS: GABAPENTIN 300 MG CAP PO SCH (09:48)
[2016-10-09] MEDS: FLUTICASONE/SALMETEROL 100/50 1 PUFF INH INH SCH (13:41)
[2016-10-09] MEDS: ALBUTEROL SULFATE 2.5 MG/3 ML VIAL NEB SCH ×3 (13:42→20:39)
[2016-10-09] MEDS: TIOTROPIUM INHALER INH SCH (13:42)
[2016-10-09] MEDS: risperiDONE 1 MG TAB PO SCH ×2 (14:26→20:16)
[2016-10-09] MEDS ORDERED: HALOPERIDOL LACTATE INJ 5 MG/ML VIAL IM ONE ×2 (14:40→14:42)
[2016-10-09] MEDS ORDERED: HALOPERIDOL LACTATE INJ 5 MG/ML VIAL IM PRN (14:44)
--- NOTE | 2016-10-09 14:50 | PN ---
DATE: 10/09/16 SUBJECTIVE: The patient has had a significant change in his mental abilities to communicate and to comprehend what is going on around him since yesterday morning. No significantly new medications are noted. The patient has had no further falls, but is not cooperating in getting up to actually move around either. He is choosing not to eat and is currently on IVs to assist with hydration and is being offered Boost and other supplements as needed to again help with some of his nutritional needs. The patient is very paranoid and feeling that a part of his house has been given away and is very upset and wants to talk to a residence hall director regarding this. He does not know where he is at and was more fully oriented to his environment yesterday morning than he is today. No falling or hitting of his head. Because of the significant change, we will review to see what previous CT scans or MRIs he has had and may require additional investigation for intracranial disease contributing to this fairly significant acute delirium state. No evidence of infection or an acute CVA in progress. OBJECTIVE: VITAL SIGNS: Afebrile. Pulse 70. Blood pressure 167/69. Pulse oximetry 97% on room air. Weight stable at 54.9. More input than output is noted. GENERAL: The patient is noticeably confused and though he does remember the two of us speaking yesterday, at this time, he has very little touch with reality. His apparently has advanced metallic sclerosis and her mind apparently works for nicely, yet she is restricted to a wheelchair and is still requiring significant assistance in transferring with neighbors and family friends assisting in the 's absence. The currently has been the primarily caregiver for his at home until he fell a couple of nights ago resulting in hospitalization to rule out underlying etiology of his significant syncopal episode, now with acute delirium will require further rehabilitation and supportive care as we attempt to try to get him in condition to be able to return home. The patient and his if not improving may eventually both require placement in a half-way facility to assist with their ongoing care. LUNGS: Somewhat diminished. HEART: Tones are fairly regular. ABDOMEN: Touchy to palpation. EXTREMITIES: Fairly well-formed. NEUROLOGIC: The patient is grossly disoriented and is somewhat aggressive, especially towards the nurses, which is a change compared to before. Discussed with a family friend and neighbor and he says that this mental deterioration is new. Neighbors and friends state that it would be impossible for him to return home at this time and specific care and rehab is necessary. LABORATORY: Hemoglobin down to 11 with a normal white count of 10,500, platelet count 206. Chemistries show potassium 3.7, BUN 17, glucose 101, calcium 7.9, albumin 2.7. Cardiac enzymes repeated and troponin is 0.05. No evidence of significant urinary tract infection and chest x-ray yesterday showed no acute abnormalities. Abdominopelvic CT scan was also performed yesterday because of significant weight loss which appears to be a decision on his part to not eat. There was some localized thickening of the distal rectosigmoid region suggesting colonoscopy to evaluate. Large prostate is also evident. Chronic obstructive pulmonary disease present. ASSESSMENT: 1. Acute delirium state. Observe and manage medications and look for infection or underlying ischemic cerebrovascular events or intracranial disease processes. This is significant affecting his ability to function and especially to be a primary caregiver for his . 2. Acute syncopal episode with loss of consciousness at home while walking to the bathroom early in the morning, probably secondary to a postural hypotension with specific antihypertensive medications being held. 3. Chronic obstructive pulmonary disease, recently exacerbated, currently stable. 4. Moderate dehydrated state with IV hydration to continue. 5. History of mild dementia with possible acute worsening with associated delirium. 6. Significant weight loss of over 25 pounds in the last 2 to 3 months. 7. Clinical evidence of hypotension, probably aggravated by the antihypertensive medications as well as a dehydrated hypovolemic state. 8. Skin tear right elbow from the fall associated with his syncopal episode. 9. Localized mucosal thickening of the distal rectosigmoid area, whether this is a gastrointestinal pathology will need to be further evaluated once condition stabilized to include a sigmoscopy or colonoscopy procedure. PLAN: The patient is being followed closely by Dr. Ferguson and this will continue when the patient is able to continue to care for himself. Social Service as well as physical therapy will evaluate to assist with the ongoing rehab opportunities. Started on Risperdal 0.5 mg b.i.d. and some melatonin is added at night to assist with the quality of sleep. Special attention to avoid getting hurt. Review past records for evidence of CT scans of the head and may consider an MRI if not recently performed. Close followup and management and observation to continue with telemetry for the significant syncopal episode also noted on admission. #[id number] [facility]
[2016-10-09] MEDS ORDERED: TAMSULOSIN 0.4 MG CAP ONE (19:57)
[2016-10-09] MEDS ORDERED: MELATONIN 3 MG TAB ONE (19:58)
[2016-10-09] MEDS ORDERED: ENOXAPARIN SODIUM 40 MG/0.4 ML SYG SUBCU ONE (19:59)
[2016-10-09] MEDS: MELATONIN 3 MG TAB PO SCH (20:16)
[2016-10-09] MEDS: DONEPEZIL HCL 5 MG TAB PO SCH (20:16)
[2016-10-09] MEDS: MIRTAZAPINE 15 MG TAB PO SCH (20:16)
[2016-10-09] MEDS: TAMSULOSIN 0.4 MG CAP PO SCH (20:16)
[2016-10-09] MEDS: ENOXAPARIN SODIUM 40 MG/0.4 ML SYG SUBCU SCH (20:16)
[2016-10-09] MEDS: KCL 20MEQ/0.45% NS 1,000 ML IVS PRN (23:46)
[2016-10-10] MEDS: OMEPRAZOLE CAP 20 MG CAP PO SCH (06:19)
[2016-10-10] MEDS: TIOTROPIUM INHALER INH SCH (08:25)
[2016-10-10] MEDS: FLUTICASONE/SALMETEROL 100/50 1 PUFF INH INH SCH (08:30)
[2016-10-10] MEDS: guaiFENesin ER TAB 600 MG TAB PO SCH ×2 (08:53→20:19)
[2016-10-10] MEDS: FERROUS GLUCONATE 325 MG TAB PO SCH (08:54)
[2016-10-10] MEDS: risperiDONE 1 MG TAB PO SCH ×2 (08:54→20:23)
[2016-10-10] MEDS: GABAPENTIN 300 MG CAP PO SCH (08:54)
[2016-10-10] MEDS: predniSONE 10 MG TAB PO SCH (08:54)
[2016-10-10] MEDS: CLOPIDOGREL 75 MG TAB PO SCH (08:54)
[2016-10-10] MEDS: ALBUTEROL SULFATE 2.5 MG/3 ML VIAL NEB SCH ×2 (09:06→13:34)
[2016-10-10] MEDS: DULoxetine HCL 30 MG CAP PO SCH (12:20)
--- NOTE | 2016-10-10 13:20 | PN ---
DATE: 10/10/16 SUBJECTIVE: The patient is in the bed, head elevated. He is breathing deeply with no noticeable respiratory distress. Of concern is the presence of a temperature of 102 degrees. He had a urinalysis and chest x-ray recently which showed no significant problems. Again, verbally encouraged to breathe even more deeply and to increase his dietary and nutritional intake. Still requiring some IV fluids because of his poor intake. Significant weight loss has been noted with the patient choosing not to eat as much as he needs for the last several months. He is followed in the clinic by Dr. Ferguson. The acute delirium with paranoid ideation and aggressive verbal use of words as yesterday was noted seems to be improved today though he seems to be more obtunded and may be related to some of the medications he is on which is to be decreased. OBJECTIVE: VITAL SIGNS: Temperature 102 degrees with it being 99.2 earlier this morning. Pulse 94. Blood pressure 97/56. Oxygen 95% on room air. GENERAL: The patient is not opening his eyes, but he is responding to questions and in many ways he is much less confused today compared to yesterday. ABDOMEN: Generally soft. HEART: Regular. LUNGS: Generally clear. We will recheck urine and chest x-ray because of the onset of fever at this time. Encourage deep breathing. LABORATORY: White count yesterday was 10,500 with hemoglobin 11. Chemistries were generally unremarkable. Albumin low related to the nutritional status. Blood cultures are negative. The patient is extremely weak. Awaiting physical therapy evaluation for safety of ambulation as well as Swing Bed candidacy. ASSESSMENT: 1. Acute delirium state noted since admission to the hospital with severe paranoia and aggressive activity, showing some improvement with the use of various medications, yet now possibly showing some sedation effects with medication dosings to be adjusted down. No previous history of similar symptoms in the past. 2. Acute syncopal episode at home with loss of consciousness at home while walking to the bathroom, possibly secondary to a significant postural hypotension having been on some specific antihypertensive medications, now being held. 3. Chronic obstructive pulmonary disease, recently exacerbated, currently stable on a low dose of corticosteroids. 4. Moderate dehydrated state with IV hydration to continue because of inadequate oral intake. 5. Mild dementia by history, currently now with worsening with associated delirium and paranoid ideation. 6. Significant weight loss of over 25 pounds in the last 2 to 3 months. 7. Clinical evidence of hypotension aggravated by the antihypertensive medications and augmented by a dehydrated hypovolemic state with fluid supplementation to continue. 8. Skin tear, right elbow, with ongoing wound care after his fall with syncopal episode prior to admission. 9. Abnormal CT scan of the distal rectosigmoid area with some localized mucosal thickening suggesting endoscopy evaluation, whether this is contributing to some of his weight loss and decreased appetite to be determined. PLAN: The patient is followed by Dr. Ferguson who will also be available to assist with decisions. His Risperdal is decreased. Awaiting physical therapy evaluation to see if he is safe to ambulate. With his history of syncopal episodes, we will do some tilt vitals to double check for postural hypotension and for evidence of hypovolemia. Again encouraged to increase fluid and nutritional intake. Evaluate for possible Swing Bed rehabilitation until strong enough to safely return home. Close followup of his febrile presentation in progress. #[id number] [facility]
[2016-10-10] MEDS: KCL 20MEQ/0.45% NS 1,000 ML IVS PRN (18:01)
[2016-10-10] MEDS ORDERED: SODIUM CHL 0.9% 100ML MINI-BAG 100 ML IVPB ONE (18:09)
[2016-10-10] MEDS ORDERED: cefTRIAXone SODIUM 1 GM VIAL ONE (18:10)
[2016-10-10] MEDS: cefTRIAXone SODIUM 1 GM in SODIUM CHL 0.9% 50ML MIN-BAG+ 50 ML IVPB SCH (18:24)
[2016-10-10] MEDS ORDERED: risperiDONE 0.25 MG TAB ONE (19:52)
[2016-10-10] MEDS: DONEPEZIL HCL 5 MG TAB PO SCH (20:18)
[2016-10-10] MEDS: TAMSULOSIN 0.4 MG CAP PO SCH (20:18)
[2016-10-10] MEDS: ENOXAPARIN SODIUM 40 MG/0.4 ML SYG SUBCU SCH (20:18)
[2016-10-10] MEDS: MELATONIN 3 MG TAB PO SCH (20:19)
[2016-10-11] MEDS: IV SET AND CAP CHANGE INJ INJ SCH (03:52)
[2016-10-11] MEDS ORDERED: SODIUM CHL 0.9% 50ML MIN-BAG+ 0 ML IVPB ONE (04:27)
[2016-10-11] MEDS ORDERED: cefTRIAXone SODIUM 1 GM VIAL ONE ×2 (04:27→07:51)
[2016-10-11] MEDS: cefTRIAXone SODIUM 1 GM in SODIUM CHL 0.9% 50ML MIN-BAG+ 50 ML IVPB SCH (04:29)
[2016-10-11] MEDS: OMEPRAZOLE CAP 20 MG CAP PO SCH (05:45)
--- NOTE | 2016-10-11 07:21 | RAD ---
EXAM DESCRIPTION: Chest,1 View CLINICAL HISTORY: fever COMPARISON: None available FINDINGS: The cardiomediastinal silhouette is unremarkable. There is no airspace consolidation or pleural effusion. The lungs appear hyperinflated. Postoperative changes are noted in the left shoulder. There is no pneumothorax or acute fracture. IMPRESSION: Pulmonary hyperinflation suggesting the possibility of COPD, but no pneumonia or other acute intrathoracic abnormality to explain fever. Electronically signed by: Bharath Breen MD 10/11/2016 7:21 AM CDT Workstation: [facility]
[2016-10-11] MEDS ORDERED: SODIUM CHL 0.9% 50ML MIN-BAG+ 50 ML IVPB ONE ×3 (07:52→20:39)
[2016-10-11] MEDS: ALBUTEROL SULFATE 2.5 MG/3 ML VIAL NEB SCH ×4 (08:16→20:19)
[2016-10-11] MEDS: TIOTROPIUM INHALER INH SCH (08:38)
[2016-10-11] MEDS: FLUTICASONE/SALMETEROL 100/50 1 PUFF INH INH SCH (08:38)
[2016-10-11] MEDS ORDERED: CEFEPIME 2 GM VIAL IVPB ONE ×2 (09:01→20:40)
[2016-10-11] MEDS: DULoxetine HCL 30 MG CAP PO SCH (09:02)
[2016-10-11] MEDS: CLOPIDOGREL 75 MG TAB PO SCH (09:02)
[2016-10-11] MEDS: predniSONE 10 MG TAB PO SCH (09:02)
[2016-10-11] MEDS: guaiFENesin ER TAB 600 MG TAB PO SCH ×2 (09:02→22:06)
[2016-10-11] MEDS: GABAPENTIN 300 MG CAP PO SCH (09:03)
[2016-10-11] MEDS: FERROUS GLUCONATE 325 MG TAB PO SCH (09:03)
[2016-10-11] MEDS: CEFEPIME 2 GM in SODIUM CHL 0.9% 50ML MIN-BAG+ 50 ML IVPB SCH ×2 (09:03→22:05)
[2016-10-11] MEDS: levoFLOXacin 750MG IV 750 MG in PREMIX BAG 1 BAG IVPB SCH (09:57)
[2016-10-11] MEDS: KCL 20MEQ/0.45% NS 1,000 ML IVS PRN (11:41)
--- NOTE | 2016-10-11 14:15 | PN ---
DATE: 10/11/16 SUBJECTIVE: The patient is sitting up in the chair looking around and is much more alert compared to even yesterday morning. He stated eating better during the day yesterday after starting him on an antibiotic course after initial evaluation for possibly underlying infection. Repeat urinalysis two days after the initial urinalysis did show evidence of a significant urinary tract infection which will require specialized treatment because of the significant reaction to this infection with acute delirium state. The patient does not remember the last two or three days, but is aware at the present time of his location and the happenings around him. OBJECTIVE: VITAL SIGNS: Afebrile. Temperature 97.2. Pulse 88. Blood pressure only 99/59. Pulse oximetry 93% on room air. Weight stable. GENERAL: The patient is awake, alert and oriented at this time, the firs time in at least two days. He has been on Rocephin since yesterday afternoon and started to feel better. Evaluation of his cultures from the urine reveals what appears to be clinical infection with pseudomonas species. HEART/LUNGS: Normal. LABORATORY: Chest x-ray shows no acute findings. Because of the possible pseudomonas, his antibiotic coverage will also be changed to more specifically target the urinary tract infection organism pending final culture and sensitivity results by in the morning. White count has gone up from 10,500 two days ago to 26,200, hemoglobin 10.8. Chemistries show sodium 131, glucose 196. Kidney functions normal, BUN 18, creatinine 0.81, calcium 8, lactic acid 1.4 with normal being up to 2.2. Gram negative krystyna is growing on urine culture and as mentioned previously, preliminarily looks like a pseudomonas with final culture pending. ASSESSMENT: 1. Acute urinary tract infection with possible sepsis, requiring vigorous treatment with fluid hydration and antibiotic coverage. 2. Acute delirium state noted for the last two days, no doubt related to the developing urinary tract infection with associated sepsis syndrome, currently being treated with fluid and antibiotic coverage and showing some clinical and laboratory improvement. 3. Acute syncopal episode at home with loss of consciousness, resulting in a fall, possibly related to a significant postural hypotension having been on antihypertensive medications, now being held. 4. Chronic obstructive pulmonary disease, recently exacerbated, currently stable on a low dose of corticosteroids. 5. Moderate dehydrated state with IV hydration to continue, 6. Mild dementia by history with the delirium and paranoid ideation, now showing some improvement. 7. Significant weight loss of over 25 pounds in the last 2 to 3 months. 8. Skin tear, right elbow, related to the fall at home with a syncopal episode. 9. Abnormal CT scan of the distal rectosigmoid area with some localized mucosal thickening suggesting endoscopic evaluation, whether this is pathology element contributing to his weight loss is to be considered. PLAN: The patient will continue with treatment for urinary tract infection. He is not a best candidate for Swing Bed at this time, but if his cognitive state improves, he should be able to participate with physical therapy as Med/ Surg continues with his ongoing treatment course. He is still requiring further rehab and strengthening. After a couple of days or more, then consider Swing Bed at that time. #[id number] [facility]
[2016-10-11] MEDS ORDERED: CALCIUM CARBONATE (ANTACID) 500 MG CHEWABLE TAB PO PRN (21:54)
[2016-10-11] MEDS: TAMSULOSIN 0.4 MG CAP PO SCH (22:05)
[2016-10-11] MEDS: ENOXAPARIN SODIUM 40 MG/0.4 ML SYG SUBCU SCH (22:05)
[2016-10-11] MEDS: DONEPEZIL HCL 5 MG TAB PO SCH (22:05)
[2016-10-11] MEDS: MELATONIN 3 MG TAB PO SCH (22:06)
[2016-10-11] MEDS: risperiDONE 1 MG TAB PO SCH (22:06)
[2016-10-12] MEDS: OMEPRAZOLE CAP 20 MG CAP PO SCH (06:53)
[2016-10-12] MEDS ORDERED: SODIUM CHL 0.9% 50ML MIN-BAG+ 50 ML IVPB ONE (07:04)
[2016-10-12] MEDS ORDERED: CEFEPIME 2 GM VIAL IVPB ONE (07:04)
[2016-10-12] MEDS: predniSONE 10 MG TAB PO SCH (08:33)
[2016-10-12] MEDS: DULoxetine HCL 30 MG CAP PO SCH (08:33)
[2016-10-12] MEDS: guaiFENesin ER TAB 600 MG TAB PO SCH ×2 (08:33→21:36)
[2016-10-12] MEDS: FERROUS GLUCONATE 325 MG TAB PO SCH (08:33)
[2016-10-12] MEDS: CEFEPIME 2 GM in SODIUM CHL 0.9% 50ML MIN-BAG+ 50 ML IVPB SCH (08:33)
[2016-10-12] MEDS: GABAPENTIN 300 MG CAP PO SCH (08:33)
[2016-10-12] MEDS: CLOPIDOGREL 75 MG TAB PO SCH (08:33)
[2016-10-12] MEDS: ALBUTEROL SULFATE 2.5 MG/3 ML VIAL NEB SCH ×4 (08:55→20:21)
[2016-10-12] MEDS: TIOTROPIUM INHALER INH SCH (09:30)
[2016-10-12] MEDS: FLUTICASONE/SALMETEROL 100/50 1 PUFF INH INH SCH (09:30)
[2016-10-12] MEDS: KCL 20MEQ/0.45% NS 1,000 ML IVS PRN (11:04)
[2016-10-12] MEDS: levoFLOXacin 750MG IV 750 MG in PREMIX BAG 1 BAG IVPB SCH (11:05)
[2016-10-12] MEDS: BIFIDOBACTERIUM INFANTIS 4 MG CAP PO SCH (12:28)
[2016-10-12] MEDS ORDERED: PANTOPRAZOLE SODIUM TAB 40 MG PO ONE (19:54)
--- NOTE | 2016-10-12 20:55 | PCM.CORE ---
Physician DVT/VTE - Nurse DVT Assessment & Total Each Risk Factor Represents 3 Points: Age over 75 years, Medical PT with Hx of SC, CHF, Severe infection/sepsis DVT Assessment Score: 6 - 5 or more Very High Risk Treatments: Early Ambulation *, Sequential Compression Device Pharmacological: Enoxaparin 40mg SQ Daily
[2016-10-12] MEDS: DONEPEZIL HCL 5 MG TAB PO SCH (21:36)
[2016-10-12] MEDS: TAMSULOSIN 0.4 MG CAP PO SCH (21:36)
[2016-10-12] MEDS: ENOXAPARIN SODIUM 40 MG/0.4 ML SYG SUBCU SCH (21:36)
[2016-10-12] MEDS: MELATONIN 3 MG TAB PO SCH (21:36)
[2016-10-12] MEDS: risperiDONE 1 MG TAB PO SCH (21:37)
[2016-10-13] MEDS: KCL 20MEQ/0.45% NS 1,000 ML IVS PRN (04:19)
[2016-10-13] MEDS ORDERED: PANTOPRAZOLE SODIUM TAB 40 MG PO SCH (06:30)
--- NOTE | 2016-10-13 08:16 | PN ---
SUPERVISING PHYSICIAN: Guillermo Hale MD DATE: 10/12/16 SUBJECTIVE: The patient is much more alert today. He says he is feeling a little better. His appetite is improving. He remains afebrile. OBJECTIVE: VITAL SIGNS: Temperature 97.1. Pulse 98. Blood pressure 131/77. Respirations 16. Saturation 99% on room air. I&Os show positive balance with weight 53.4 kg. CHEST: Lungs clear to auscultation bilaterally. HEART: Regular rate and rhythm. ABDOMEN: Soft, nontender. Positive bowel sounds. EXTREMITIES: No cyanosis, clubbing or edema. NEUROLOGIC: He is much more alert today times three with no neurologic deficits noted. LABORATORY: White count remains elevated, but is improved from 26.2 to 18.8. Hemoglobin and hematocrit are fairly stable at 9.9 and 29.6. Platelet count 134 ,000. Differential continues to show a left shift. Chemistries show a low sodium of 133 with potassium 3.8, BUN 16, creatinine 0.76, glucose 89. Liver functions show slightly elevated AST of 66. Otherwise, all other liver functions are within normal limits. MICROBIOLOGY: Final urine culture shows pseudomonas aeruginosa, fairly resistant, but sensitive to Levaquin and meropenem and cefepime, resistant to ceftriaxone. Please see that final report for full details of the sensitivity report. ASSESSMENT: 1. Acute urinary tract infection with sepsis, showing good improvement after initiation of IV fluids and antibiotic coverage to include initially Levaquin and cefepime. Final culture results showed pseudomonas aeruginosa. 2. Acute delirium state noted for the last two days, related to the underlying urinary tract infection with associated sepsis syndrome, resolving after being started on treatment with fluids and antibiotic coverage, continuing to show good clinical improvement. 3. Acute syncopal episode at home with loss of consciousness, resulting in a fall, possibly related to a significant postural hypotension having been on antihypertensive medications, which have been held since admission, stable. 4. Chronic obstructive pulmonary disease with recent exacerbation, but stable with low dose of corticosteroids. 5. Moderate dehydration, improved after IV therapy. 6. 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 7. Significant weight loss of over 25 pounds in the last 2 to 3 months. 8. Multiple skin tears, right elbow, related to the fall at home. 9. Abnormal CT scan of the distal rectosigmoid area with some localized mucosal thickening suggesting further endoscopic evaluation needed for concerns for any pathological element contributing to his underlying weight loss. 10. Leukocytosis secondary to urinary tract infection and sepsis, showing good improvement and returning to near normal baseline with treatment with IV fluids and antibiotic therapy. PLAN: Given the sensitivity report this morning with the pseudomonas being sensitive to Levaquin, we will plan to discontinue the patient's cefepime. He is clinically showing clinical improvement and we will continue with Levaquin 750 mg q.24. We will continue to monitor closely with consideration of possible Swing Bed for physical therapy and conditioning as the patient show clinical improvement and is no longer needing Acute Care. We will continue with physical therapy evaluation. Until then, we will continue to monitor the patient closely and treat appropriately. #[id number] [facility]
[2016-10-13] MEDS: ALBUTEROL SULFATE 2.5 MG/3 ML VIAL NEB SCH ×3 (09:12→16:26)
[2016-10-13] MEDS: BIFIDOBACTERIUM INFANTIS 4 MG CAP PO SCH (09:34)
[2016-10-13] MEDS: TIOTROPIUM INHALER INH SCH (09:34)
[2016-10-13] MEDS: predniSONE 10 MG TAB PO SCH (09:34)
[2016-10-13] MEDS: CLOPIDOGREL 75 MG TAB PO SCH (09:34)
[2016-10-13] MEDS: FERROUS GLUCONATE 325 MG TAB PO SCH (09:34)
[2016-10-13] MEDS: FLUTICASONE/SALMETEROL 100/50 1 PUFF INH INH SCH (09:34)
[2016-10-13] MEDS: levoFLOXacin 750MG IV 750 MG in PREMIX BAG 1 BAG IVPB SCH (09:35)
[2016-10-13] MEDS: guaiFENesin ER TAB 600 MG TAB PO SCH (09:35)
[2016-10-13] MEDS: DULoxetine HCL 30 MG CAP PO SCH (09:35)
[2016-10-13] MEDS: GABAPENTIN 300 MG CAP PO SCH (09:37)
[2016-10-13 15:53] VITALS: BP 117/68; TEMP 97.8
[2016-10-13 17:57] VITALS: O2SAT 93
--- NOTE | 2016-10-15 22:10 | DS ---
SUPERVISING PHYSICIAN: Guillermo Hale M.D. DISCHARGE DIAGNOSIS: 1. Acute urinary tract infection with sepsis on admission to [facility] showing improvement after initiation of IV antibiotics that included Levaquin initially and cefepime with final culture results showing pseudomonas aeruginosa with the patient being transitioned to p.o. Levaquin prior to discharge and showing clinical improvement but having significant deconditioning from a lengthy hospitalization now requiring Swing Bed admission for the patient's safety for physical therapy and reconditioning. 2. Acute delirium state on admission felt to be secondary to his underlying urinary tract infection and sepsis syndrome, resolved after initiation of treatment with fluids and antibiotic coverage and continuing to show good clinical improvement clinically with resolution of symptoms prior to discharge from Acute Care and admission to Swing Bed. 3. Chronic obstructive pulmonary disease with recent exacerbation, but stable with low dose of corticosteroids. 4. Moderate dehydration, improved after IV therapy. 5. Mild dementia by history with delirium and paranoid ideations, although showing improvement with initiation of IV therapy and antibiotics felt to be secondary to his underlying urinary tract infection. 6. Significant weight loss in the last 2 to 3 months with ongoing followup needed. 7. Multiple skin tears, right elbow, related to the fall at home showing good improvement. 8. Abnormal CT scan of the abdomen showing the distal rectosigmoid area with some localized mucosal thickening suggesting need for further endoscopic evaluation and needed once discharged from Swing Bed with concerns for any pathological element contributing to his underlying weight loss. 9. Leukocytosis, resolved after treatment of underlying urinary tract infection with antibiotics to include Cefepime and Levaquin with underlying sepsis showing good clinical resolution and the patient back to baseline limits after treatment. 10. Elevated liver functions to include AST and ALT felt to be secondary to excessive Acetaminophen administration. LABORATORY STUDIES: Initial white count on admission was 9.4. He did show a maximum of 26.2 and after initiation of therapy based off culture results, showed good clinical improvement and by discharge had normalized his white count to 7.5. His hemoglobin and hematocrit had stabilized and at discharge was 10.7, hematocrit 31.2, platelet count was within normal limits at 137,000. Differential did show initially a left shift, this resolved prior to discharge. Coagulation studies on admission showed a normal PT and PTT. Blood gas analysis showed a pH of 7.46 with bicarb 20, PO2 of 67, PCO2 of 29 with saturation of 96.5. Chemistries showed on admission normal electrolytes with electrolytes remaining within normal limits except for just a low sodium at times and at discharge electrolytes were within normal limits with sodium 136, potassium 3.7. Renal function: Creatinine on admission showed 1.26, after initiation of therapy and fluids through admission at discharge was showing to be within normal limits at 0.7 as well as BUN was 11. Serum osmolality ranged from 265 to 279, at discharge it was 271. Lactic acid was 1.0 and got to a maximum of 1.4 but never was above at normal limits. Calcium was within normal limits, at discharge was 8.4. Liver functions showed an elevated AST and ALT, at discharge AST was 47, ALT was 68. He did have troponins that both were all within normal limits with the final one being 0.05. Urinalysis initially on admission showed rare bacteria with 3 to 5 RBCs on microscopic with trace of blood with a second urinalysis on 10/10/16 showing dipstick with 40 of ketones, small amount of blood, positive nitrites and a small amount of leukocyte esterase with microscopic showing 5 to 10 RBCs, 20 to 30 WBCs, 2+ sediment with 3+ bacteria with large amount of mucous. MICROBIOLOGY: He had 4 sets of blood cultures that remained negative after 4 days. Final urine culture showed Pseudomonas aeruginosa with a fairly resistance pattern sensitive to Cefepime, Cipro, Levaquin and Meropenem, and other antibiotics. Please refer to that final results for full details. RADIOLOGY: Initially in the Emergency Department he had a chest x-ray and per radiology interpretation no acute abnormalities in the chest were noted. He had an elbow and knee x-ray per radiology interpretation there was no acute fracture or dislocation in the right elbow noted. Left knee showed no acute fracture or dislocation with mild tricompartmental osteoarthritic changes as noted per radiology interpretation. After admission, he had an abdomen and pelvis CT completed with IV contrast only per radiology interpretation there was note of enlarged heterogeneous prostate gland with considerations for PSA levels and a prostate MRI. There was mild diffuse thickening of the distal retrosigmoid with recommendations for correlation with any recently performed colonoscopies. Also of note was abdominal aortic aneurysm measuring 3.1 cm with recommendations for guidelines followup every 3 years with emphysema also noted with stable left lower lobe pulmonary nodule dictated on previous CT report on 09/28/16. Additional radiographic studies included a chest x-ray on 10/11/16 which was the last chest x-ray and per radiology interpretation was noted pulmonary hyperinflation suggesting the possibility of COPD with no pneumonia or other acute intrathoracic abnormalities to explain the fever. HOSPITAL COURSE: Mr. Heath was admitted on 10/08/16 from the Emergency Department as noted in the History of Present Illness for acute mental status change, found to have an underlying urinary tract infection and some sepsis components. Ultimately his culture results showed Pseudomonas aeruginosa and based off sensitivity patterns was placed on appropriate antibiotic therapy that included Levaquin. The patient showed good clinical improvement both mentally and in regards to the underlying urinary tract infection. On date of discharge, the patient was shown to be significantly decreased in his ability to function, ambulatory and was deconditioned. Given that his home situation involved his who has multiple sclerosis and is wheelchair bound, it was felt that the patient was not safe to discharge home as he was in need of some physical therapy to ensure that he was able to function at home as he is the primary care provider for his . PLAN: The patient was discharged from Acute Care on 10/13/16 and admitted to Swing Bed on 10/13/16 to have ongoing physical therapy and reconditioning. He was discharged with prescriptions and continuation of medications on Acute Care to include: 1. Align. 2. Levaquin 750 daily. 3. Melatonin. All other medications as prior to admission. He was admitted to Swing Bed in stable condition on same day as discharge. #[id number] [facility]
== END 2016-10-13 16:00 | disposition swing bed (61) | DRG 640 ==
LOC: ER 00:10 → OBSVTOIN 02:46 → MS 02:46
PROVIDERS: ADMIT Emergency Medicine; ATTEND Emergency Medicine
PROC: BW21YZZ Computerized Tomography (CT Scan) of Abdomen and Pelvis using Other Contrast (ICD-10-PCS; principal; 2016-10-08)
DX: E86.0 Dehydration (principal); A41.9 Sepsis, unspecified organism; E41 Nutritional marasmus; N39.0 Urinary tract infection, site not specified; Z68.1 Body mass index [BMI] 19.9 or less, adult; F05 Delirium due to known physiological condition; I95.1 Orthostatic hypotension; B96.5 Pseudomonas (aeruginosa) (mallei) (pseudomallei) as the cause of diseases classified elsewhere; J44.9 Chronic obstructive pulmonary disease, unspecified; F03.90 Unspecified dementia, unspecified severity, without behavioral disturbance, psychotic disturbance, mood disturbance, and anxiety; S50.311A Abrasion of right elbow, initial encounter; W19.XXXA Unspecified fall, initial encounter; E78.5 Hyperlipidemia, unspecified; I10 Essential (primary) hypertension; I25.10 Atherosclerotic heart disease of native coronary artery without angina pectoris; N40.1 Benign prostatic hyperplasia with lower urinary tract symptoms; R39.15 Urgency of urination; K21.9 Gastro-esophageal reflux disease without esophagitis; R93.3 Abnormal findings on diagnostic imaging of other parts of digestive tract; T46.5X5A Adverse effect of other antihypertensive drugs, initial encounter; F22 Delusional disorders; I25.2 Old myocardial infarction; Y92.009 Unspecified place in unspecified non-institutional (private) residence as the place of occurrence of the external cause; Y93.9 Activity, unspecified; Y99.9 Unspecified external cause status; Z87.891 Personal history of nicotine dependence; Z96.651 Presence of right artificial knee joint; Z95.5 Presence of coronary angioplasty implant and graft; Z79.51 Long term (current) use of inhaled steroids; Z79.52 Long term (current) use of systemic steroids; Z79.899 Other long term (current) drug therapy; Z79.02 Long term (current) use of antithrombotics/antiplatelets

== ENCOUNTER 2016-10-13 16:00 | Inpatient (IN) | payer MEDICARE, OTHER ==
[2016-10-13] MEDS ORDERED: SODIUM PHOS/BIPHOS ENEMA ADULT 133 ML BTTL PR PRN (19:51)
[2016-10-13] MEDS ORDERED: MAGNESIUM HYDROXIDE 30 ML UD PO PRN (19:51)
[2016-10-13] MEDS ORDERED: ACETAMINOPHEN 500 MG TAB PO PRN (19:51)
--- NOTE | 2016-10-13 21:21 | HP ---
SUPERVISING PHYSICIAN: Guillermo Hale M.D. REASON FOR SWING BED ADMISSION: Strengthening and reconditioning. HISTORY OF PRESENT ILLNESS: Mr. Heath is a 68 year-old male patient that was admitted to the hospital from the Emergency Room on 10/08/16 due to an acute episode of syncope with loss of consciousness at home. It was noted early in the morning he was walking to the bathroom and found himself on the floor with an injury to his right elbow. His who has multiple sclerosis and is very disabled called 911 at that time and he was taken to the Emergency Room by EMS. He was found to be significantly hypotensive with a blood pressure of 70/40. Transient level of consciousness required some ongoing observation because he had had a spell where he had apparently had sinus arrest on telemetry to assist with determination of the etiology of the syncopal episode. No doubt, significant hypotension evaluated and augmented by change in posture contributed to his syncopal episodes. History of recent dementia having been noted in the past with bad emphysema recently on a course of steroids. Previously he has also lost weight, approximately 25 pounds within the last 3 to 4 months. He does see Dr. Ferguson and lives at home with his , and he is the primary caregiver for his since she is wheelchair bound due to multiple sclerosis. The patient was placed in Observation initially to further evaluate the cause contributing to the diagnosis of why he has weight loss and underlying syncopal episode. It was noted that he had been recently in the hospital at [place] on 09/27/16 until 09/30/16 for approximately a week previous to this admission. He returned home. He did continue on his blood pressure medications which were now stopped on this current admission as it is felt that his blood pressures are contributing to some of his syncope. While in the hospital it was noted on laboratory studies that he had a significant urinary tract infection as noted with white count on microscopic showing 20 to 30 WBCs with 3+ bacteria. Microbiology cultures showed a urinary culture final with Pseudomonas aeruginosa for which the patient was treated with Levaquin from start of admission until ultimately discharged to Swing Bed. The results of the Pseudomonas sensitivity showed that it was sensitive to Levaquin. The patient clinically did well. His delirium cleared up. It was felt that most of his symptoms was contributed both to underlying hypotension from possible sepsis process due to underlying urinary tract infection as well as exacerbated by his dehydration and hypertensive medications. Clinically he improved. He remained on Levaquin and was felt well enough medically on that he could be discharged, however given the fact that he is a sole caregiver of his who is wheelchair bound secondary to advanced multiple sclerosis and the patient does have some history of falls and being weak, and is unable to take care of himself let alone his . It was felt that it was in the best interest of the patient for his safety that he be discharged from Acute Care and admitted to Swing Bed for ongoing physical therapy to allow the patient to get significant reconditioning and strengthening to be safely discharged. PAST MEDICAL HISTORY: 1. Hyperlipidemia. 2. History of hypertension, although recently hypotensive. 3. Coronary artery disease with status post myocardial infarction and stents in 2005. 4. Benign prostatic hypertrophy. 5. Chronic urinary urgency secondary to number 4. 6. Chronic obstructive pulmonary disease. 7. Gastroesophageal reflux disease. 8. Recent weight loss approximately 25 pounds, ongoing studies for undetermined etiology at this time. PAST SURGICAL HISTORY: 1. Right knee replacement. 2. Right shoulder surgery. 3. Left rotator cuff repair. 4. Abdominal surgery due to peptic ulcer disease. 5. Right sided endarterectomy. 6. Tonsillectomy. 7. Bilateral cataract removal. CURRENT MEDICATIONS: 1. Mucinex 1200 mg b.i.d. 2. Spiriva Handihaler 18 mcg daily. 3. Flomax 1 tablet daily. 4. Ranitidine 150 mg twice daily. 5. Remeron 15 mg at bedtime. 6. Melatonin 6 mg at bedtime. 7. Lisinopril 10 mg daily. 8. Levaquin 250 mg daily. 9. Gabapentin 300 mg daily. 10. Advair 100/50 Diskus 1 puff daily. 11. Fergon 240 mg daily. 12. Aricept 5 mg daily. 13. Plavix 75 mg daily. 14. Align 4 mg daily. 15. Lipitor 40 mg tablet daily. 16. Albuterol nebulizer every 4 hours p.r.n. Please see for full updated list of current medications in the electronic medical records. ALLERGIES: NO KNOWN DRUG ALLERGIES. FAMILY HISTORY: Unremarkable. SOCIAL HISTORY: The patient smokes 3 packs a day for 25 years but quit about 20 years previously with no significant emphysema. He is and lives in [place] with his who has multiple sclerosis and is wheelchair bound. REVIEW OF SYSTEMS: As noted on previous admission to Acute Care, he has had significant weight loss of over 25 pounds within the last 3 months. He did have some chills initially on admission but this has resolved after treatment and prior to discharge had no complaints of fever or chills. LUNGS: Does have some mild shortness of breath with exertion but showing improvement with physical therapy. CARDIOVASCULAR: No chest pains noted. No palpitations reported through Acute Care. He did have syncopal episodes as noted in the History of Present Illness prior to arrival on Acute Care, but no reported additional acute episodes of syncope. GENITOURINARY: Has a history of urgency and prostate enlargement contributing to flow problems with a recent urinary tract infection with Pseudomonas as noted on Acute Care stay treated with Levaquin. NEUROLOGIC: He had a past history of complete loss of consciousness when walked to the bathroom as noted in History of Present Illness from Acute Care History and Physical, but has not had any loss of consciousness during Acute Care stay and has returned to a baseline status as far as mental status and neurological functioning, although he does remain weak. PHYSICAL EXAMINATION: VITAL SIGNS: Temperature 97.8, pulse 84, blood pressure 117/68, respirations 20 , O2 sat 96% on room air. Admission weight 53.4 kg. HEENT: Tympanic membranes are clear bilaterally. Oropharynx is pink and moist without any lesions. NECK: No jugular venous distention. CHEST: Lungs were clear to auscultation bilaterally with no rhonchi, wheezing or rales. CARDIOVASCULAR: Regular rate and rhythm without appreciable murmurs, gallops, or rubs. ABDOMEN: Soft, non-tender. Positive bowel sounds. EXTREMITIES: No cyanosis, clubbing or edema. NEUROLOGIC: He is alert and oriented times three with no obvious neurological deficits. Facial features were symmetrical. Extraocular movements are within normal limits. Cranial nerves II-XII are grossly intact. LABORATORY: CBC and CMP are pending. RADIOLOGY: Chest x-ray pending. ASSESSMENT: 1. Acute urinary tract infection with sepsis noted on admission to Acute Care showing good improvement after initiation of IV antibiotics to include Levaquin initially and Cefepime with final culture results showing Pseudomonas aeruginosa with the patient being transitioned to p.o. Levaquin and clinically showing improvement, but having significant deconditioning for a lengthy hospitalization requiring Swing Bed admission for the patient's safety for physical therapy and reconditioning. 2. Acute delirium state on admission felt to be secondary to his underlying urinary tract infection and sepsis syndrome, resolved after initiation of treatment with fluids and antibiotic coverage, continuing to show good improvement and clinical resolution of symptoms prior to discharge from Acute Care. 3. Chronic obstructive pulmonary disease with recent exacerbation, but stable with low dose corticosteroids. 4. Moderate dehydration, improved after IV therapy. 5. Mild dementia by history with delirium and paranoid ideations although showing improvement with initiation of IV therapy and antibiotics felt to be secondary to underlying urinary tract infection. 6. Significant weight loss in the last 2 to 3 months, ongoing followup needed. 7. Multiple skin tears, right elbow, related to the fall at home. 8. Abnormal CT scan of the abdomen showing distal rectosigmoid area with some localized mucosal thickening suggesting further endoscopic evaluation needed once discharged for concerns for any pathological element contributing to his underlying weight loss. 10. Leukocytosis, resolved after treatment of underlying urinary tract infection with antibiotics to include Cefepime and Levaquin with underlying sepsis showing good clinical resolution and back to normal baseline limits after treatment. PLAN: The patient clinically has shown good improvement from Acute Care. He does need to continue with his antibiotic therapy for additional days to include 14 days total on Levaquin. Given that he is significantly deconditioned and weak, and unable to take care of himself and has a at home that relies on him to take care of her, at this point it is not safe for the patient to be discharge, therefore he will be admitted to Swing Bed today for ongoing physical therapy for reconditioning and rehabilitation in efforts to ensure the patient is safe once discharged. Will continue again with his Levaquin for a total of 14 days. Repeat laboratory studies in the morning to include a CBC and CMP, and other laboratories as needed. Will follow him medically through the Swing Bed admission with anticipation of a length of stay to be 3 to 5 days. Until then, will continue to monitor the patient closely and treat appropriately. #[id number] [facility]
--- NOTE | 2016-10-13 23:28 | PCM.CORE ---
Physician DVT/VTE - Nurse DVT Assessment & Total Each Risk Factor Represents 3 Points: Age over 75 years, Medical PT with Hx of [place], CHF, Severe infection/sepsis DVT Assessment Score: 6 - 5 or more Very High Risk Treatments: Early Ambulation *, Sequential Compression Device Pharmacological: Enoxaparin 40mg SQ Daily
[2016-10-14] MEDS: risperiDONE 1 MG TAB PO SCH ×2 (00:06→21:14)
[2016-10-14] MEDS: MELATONIN 3 MG TAB PO SCH ×2 (00:08→21:14)
[2016-10-14] MEDS: DONEPEZIL HCL 5 MG TAB PO SCH ×2 (00:09→21:14)
[2016-10-14] MEDS ORDERED: OMEPRAZOLE CAP 20 MG CAP ONE (05:51)
[2016-10-14] MEDS ORDERED: PANTOPRAZOLE SODIUM TAB 40 MG PO SCH (06:30)
[2016-10-14] MEDS: FLUTICASONE/SALMETEROL 100/50 1 PUFF INH INH SCH (08:00)
[2016-10-14] MEDS: TIOTROPIUM INHALER INH SCH (08:00)
[2016-10-14] MEDS: guaiFENesin ER TAB 600 MG TAB PO SCH ×2 (08:45→21:12)
[2016-10-14] MEDS: CLOPIDOGREL 75 MG TAB PO SCH (08:45)
[2016-10-14] MEDS: GABAPENTIN 300 MG CAP PO SCH (08:46)
[2016-10-14] MEDS: DULoxetine HCL 30 MG CAP PO SCH (08:46)
[2016-10-14] MEDS: predniSONE 10 MG TAB PO SCH (08:46)
[2016-10-14] MEDS: DOCUSATE SODIUM 100 MG CAP PO SCH (08:46)
[2016-10-14] MEDS: FERROUS GLUCONATE 325 MG TAB PO SCH (08:46)
[2016-10-14] MEDS: BIFIDOBACTERIUM INFANTIS 4 MG CAP PO SCH (08:46)
[2016-10-14] MEDS ORDERED: levoFLOXacin 750MG IV 750 MG in PREMIX BAG 1 BAG IVPB SCH (09:00)
[2016-10-14] MEDS ORDERED: ACETAMINOPHEN 500 MG TAB PO PRN (11:04)
[2016-10-14] MEDS ORDERED: PANTOPRAZOLE SODIUM TAB 40 MG PO ONE (20:33)
[2016-10-14] MEDS ORDERED: RISPERIDONE 0.5 MG PO SCH (21:00)
[2016-10-14] MEDS: ATORVASTATIN 20 MG TAB PO SCH (21:13)
[2016-10-14] MEDS: ENOXAPARIN SODIUM 40 MG/0.4 ML SYG SUBCU SCH (21:13)
[2016-10-14] MEDS: MIRTAZAPINE 15 MG TAB PO SCH (21:14)
[2016-10-14] MEDS: TAMSULOSIN 0.4 MG CAP PO SCH (21:14)
[2016-10-15] MEDS: PANTOPRAZOLE SODIUM TAB 40 MG PO SCH (06:15)
[2016-10-15] MEDS ORDERED: levoFLOXacin 500 MG TAB ONE (07:18)
[2016-10-15] MEDS: FLUTICASONE/SALMETEROL 100/50 1 PUFF INH INH SCH (07:35)
[2016-10-15] MEDS: TIOTROPIUM INHALER INH SCH (07:35)
[2016-10-15] MEDS: DULoxetine HCL 30 MG CAP PO SCH (08:46)
[2016-10-15] MEDS: predniSONE 10 MG TAB PO SCH (08:46)
[2016-10-15] MEDS: CLOPIDOGREL 75 MG TAB PO SCH (08:46)
[2016-10-15] MEDS: FERROUS GLUCONATE 325 MG TAB PO SCH (08:46)
[2016-10-15] MEDS: levoFLOXacin 500 MG TAB PO SCH (08:46)
[2016-10-15] MEDS: BIFIDOBACTERIUM INFANTIS 4 MG CAP PO SCH (08:46)
[2016-10-15] MEDS: DOCUSATE SODIUM 100 MG CAP PO SCH (08:46)
[2016-10-15] MEDS: GABAPENTIN 300 MG CAP PO SCH (08:47)
[2016-10-15] MEDS: guaiFENesin ER TAB 600 MG TAB PO SCH ×2 (08:47→20:35)
[2016-10-15] MEDS ORDERED: risperiDONE 1 MG TAB ONE (19:39)
[2016-10-15] MEDS: MIRTAZAPINE 15 MG TAB PO SCH (20:35)
[2016-10-15] MEDS: ENOXAPARIN SODIUM 40 MG/0.4 ML SYG SUBCU SCH (20:35)
[2016-10-15] MEDS: DONEPEZIL HCL 5 MG TAB PO SCH (20:35)
[2016-10-15] MEDS: TAMSULOSIN 0.4 MG CAP PO SCH (20:36)
[2016-10-15] MEDS: risperiDONE 0.25 MG TAB PO SCH (20:36)
[2016-10-15] MEDS: ATORVASTATIN 20 MG TAB PO SCH (20:36)
[2016-10-15] MEDS: MELATONIN 3 MG TAB PO SCH (20:36)
[2016-10-16] MEDS: PANTOPRAZOLE SODIUM TAB 40 MG PO SCH (06:17)
[2016-10-16] MEDS: FLUTICASONE/SALMETEROL 100/50 1 PUFF INH INH SCH (08:19)
[2016-10-16] MEDS: TIOTROPIUM INHALER INH SCH (08:19)
[2016-10-16] MEDS: guaiFENesin ER TAB 600 MG TAB PO SCH ×2 (09:45→20:46)
[2016-10-16] MEDS: BIFIDOBACTERIUM INFANTIS 4 MG CAP PO SCH (09:45)
[2016-10-16] MEDS: DOCUSATE SODIUM 100 MG CAP PO SCH (09:46)
[2016-10-16] MEDS: levoFLOXacin 500 MG TAB PO SCH (09:46)
[2016-10-16] MEDS: DULoxetine HCL 30 MG CAP PO SCH (09:46)
[2016-10-16] MEDS: predniSONE 10 MG TAB PO SCH (09:47)
[2016-10-16] MEDS: CLOPIDOGREL 75 MG TAB PO SCH (09:47)
[2016-10-16] MEDS: GABAPENTIN 300 MG CAP PO SCH (09:47)
[2016-10-16] MEDS: ATORVASTATIN 20 MG TAB PO SCH (20:45)
[2016-10-16] MEDS: MELATONIN 3 MG TAB PO SCH (20:45)
[2016-10-16] MEDS: risperiDONE 0.25 MG TAB PO SCH (20:45)
[2016-10-16] MEDS: DONEPEZIL HCL 5 MG TAB PO SCH (20:46)
[2016-10-16] MEDS: MIRTAZAPINE 15 MG TAB PO SCH (20:46)
[2016-10-16] MEDS: TAMSULOSIN 0.4 MG CAP PO SCH (20:47)
[2016-10-16] MEDS: ENOXAPARIN SODIUM 40 MG/0.4 ML SYG SUBCU SCH (20:47)
[2016-10-16] MEDS: FERROUS GLUCONATE 325 MG TAB PO SCH (20:51)
[2016-10-17] MEDS: PANTOPRAZOLE SODIUM TAB 40 MG PO SCH (06:07)
[2016-10-17] MEDS: levoFLOXacin 500 MG TAB PO SCH (09:00)
[2016-10-17] MEDS: FLUTICASONE/SALMETEROL 100/50 1 PUFF INH INH SCH (09:15)
[2016-10-17] MEDS: TIOTROPIUM INHALER INH SCH (09:15)
[2016-10-17] MEDS: ALBUTEROL SULFATE 2.5 MG/3 ML VIAL NEB PRN ×2 (09:20→13:20)
[2016-10-17] MEDS: GABAPENTIN 300 MG CAP PO SCH ×2 (09:39→21:18)
[2016-10-17] MEDS: guaiFENesin ER TAB 600 MG TAB PO SCH ×2 (09:39→21:18)
[2016-10-17] MEDS: DOCUSATE SODIUM 100 MG CAP PO SCH (09:39)
[2016-10-17] MEDS: BIFIDOBACTERIUM INFANTIS 4 MG CAP PO SCH (09:39)
[2016-10-17] MEDS: CLOPIDOGREL 75 MG TAB PO SCH (09:39)
[2016-10-17] MEDS: DULoxetine HCL 30 MG CAP PO SCH (09:39)
[2016-10-17] MEDS: predniSONE 10 MG TAB PO SCH (11:00)
[2016-10-17] MEDS ORDERED: predniSONE 20 MG TAB PO ONE (11:02)
[2016-10-17] MEDS ORDERED: COLCHICINE 0.6 MG TAB PO ONE ×2 (11:06→12:20)
[2016-10-17] MEDS ORDERED: ONDANSETRON ODT 8 MG TAB SL PRN (11:09)
[2016-10-17] MEDS ORDERED: COLCHICINE 0.6 MG TAB ONE (13:39)
--- NOTE | 2016-10-17 20:32 | PN ---
DATE: 10/17/16 SUPERVISING PHYSICIAN: Guillermo Hale M.D. SUBJECTIVE: The patient is complaining of some discomfort in his feet burning similar to worsening neuropathy and some discomfort in his left great toe as well as in his hands. He has been afebrile. He has finished up his last dose of Levaquin today and has had no recurrence of his urinary tract infection symptomatically. He still is with a good appetite, but again is refusing to do any physical therapy secondary to the discomfort in his feet. After looking at his feet, it looks as though he may have a gout flare-up, therefore will start treatment. OBJECTIVE: VITAL SIGNS: He remains afebrile with T max 99.0, pulse 86, blood pressure 116/71, respirations 16, satting 96% on room air. Weight is 57.1 kg. I's and O's are not completely measured as he has been voiding and it has not been measured and recorded. CHEST: Lungs are clear to auscultation. HEART: Regular rate and rhythm. ABDOMEN: Soft, non-tender. Positive bowel sounds. EXTREMITIES: No clubbing, cyanosis or edema. The great toe on the left foot shows to be erythematous and warm to touch as well as tender on palpation. NEUROLOGIC: He is alert and oriented times three. LABORATORY: No laboratory or radiographic studies available for review. ASSESSMENT: 1. Previous urinary tract infection with sepsis on previous acute admission on Acute Care showing improvement and continuation of IV antibiotic therapy through Swing Bed with the patient being on Levaquin now for a total of 10 days showing good clinical improvement with no recurrence of symptoms, but continues to have significant deconditioning while on Swing Bed requiring ongoing physical therapy. 2. Past history of acute delirium state on Acute admission that was secondary to underlying urinary tract infection and sepsis syndrome, resolved prior to admission to Swing Bed with antibiotic therapy and fluids, continues to show good improvement but continues to be significantly deconditioned and weak requiring ongoing physical therapy. 3. Chronic obstructive pulmonary disease with recent exacerbation, but stable with low dose corticosteroids. 4. Moderate dehydration on Acute Care but improved prior to admission to Swing Bed after IV therapy. 5. Mild dementia by history with delirium and paranoid ideations although showing improvement with initiation of previous IV therapy including fluids and antibiotic showing improvement and felt to be secondary to his previous underlying urinary tract infection. 6. Significant weight loss within the last 2 to 3 months with ongoing followup to address a normal CT scan of the abdomen showing a distal rectosigmoid localized mucosal thickening suggesting the need for further endoscopy evaluation to address any concerns of pathologist element contributing to his underlying weight loss. 7. Leukocytosis on Acute Care secondary to sepsis and urinary tract infection having resolved prior to discharge and admission to Swing Bed. 8. Acute gout affecting left great toe and inhibiting his ability to function with physical therapy requiring initiation of treatment with steroids and Colchicine as the patient is a poor candidate for [employer] NSAIDs secondary to age, co-morbidities, Plavix and Lovenox. PLAN: The patient had a small setback due to the fact that his feet are hurting real bad from both a flare-up of his neuropathy and gout. I have increased his Gabapentin to 300 b.i.d. I have started him on gout treatment with Colchicine with initial dose of 1.6 followed-up by a 0.6 dose 1 hour after initial treatment, and then daily Colchicine of 0.6 b.i.d. He was also given additional prednisone dose of 50 mg for a total of 60 which is 1 mg per kg times 1 dose, and will continue with normal prednisone of 10 mg daily. He is on gastric protection with a PPI. Will continue to monitor his progression and hope that his gout will resolve. Until then, to continue with participation in Swing Bed physical therapy and rehabilitation. He did finish his Levaquin today for a total of 14 days and has not had any recurrence of dysuria or any symptoms, therefore I have discontinued his antibiotic therapy. Will continue to monitor this closely with recommended repeat urinalysis in the next 24 to 48 hours. He did have labs on admission and will anticipate that he will need an additional 3 to 5 days of Swing Bed for physical therapy prior to admission to be sure that he is safe when discharged home. Until then, will continue to monitor the patient closely and treat appropriately. #[id number] [facility]
[2016-10-17] MEDS: DONEPEZIL HCL 5 MG TAB PO SCH (21:16)
[2016-10-17] MEDS: TAMSULOSIN 0.4 MG CAP PO SCH (21:17)
[2016-10-17] MEDS: ATORVASTATIN 20 MG TAB PO SCH (21:17)
[2016-10-17] MEDS: ENOXAPARIN SODIUM 40 MG/0.4 ML SYG SUBCU SCH (21:17)
[2016-10-17] MEDS: FERROUS GLUCONATE 325 MG TAB PO SCH (21:17)
[2016-10-17] MEDS: MELATONIN 3 MG TAB PO SCH (21:18)
[2016-10-17] MEDS: risperiDONE 0.25 MG TAB PO SCH (21:18)
[2016-10-17] MEDS: MIRTAZAPINE 15 MG TAB PO SCH (21:18)
[2016-10-18] MEDS: PANTOPRAZOLE SODIUM TAB 40 MG PO SCH (06:42)
[2016-10-18] MEDS: BIFIDOBACTERIUM INFANTIS 4 MG CAP PO SCH (08:28)
[2016-10-18] MEDS: guaiFENesin ER TAB 600 MG TAB PO SCH ×2 (08:29→21:18)
[2016-10-18] MEDS: DOCUSATE SODIUM 100 MG CAP PO SCH (08:29)
[2016-10-18] MEDS: COLCHICINE 0.6 MG TAB PO SCH (08:29)
[2016-10-18] MEDS: predniSONE 10 MG TAB PO SCH (08:29)
[2016-10-18] MEDS: CLOPIDOGREL 75 MG TAB PO SCH (08:29)
[2016-10-18] MEDS: GABAPENTIN 300 MG CAP PO SCH ×2 (08:30→21:19)
[2016-10-18] MEDS: DULoxetine HCL 30 MG CAP PO SCH (08:30)
[2016-10-18] MEDS: FLUTICASONE/SALMETEROL 100/50 1 PUFF INH INH SCH (08:55)
[2016-10-18] MEDS: TIOTROPIUM INHALER INH SCH (08:55)
[2016-10-18] MEDS: ALBUTEROL SULFATE 2.5 MG/3 ML VIAL NEB PRN (21:08)
[2016-10-18] MEDS: TAMSULOSIN 0.4 MG CAP PO SCH (21:17)
[2016-10-18] MEDS: FERROUS GLUCONATE 325 MG TAB PO SCH (21:17)
[2016-10-18] MEDS: DONEPEZIL HCL 5 MG TAB PO SCH (21:17)
[2016-10-18] MEDS: ATORVASTATIN 20 MG TAB PO SCH (21:17)
[2016-10-18] MEDS: MELATONIN 3 MG TAB PO SCH (21:18)
[2016-10-18] MEDS: ENOXAPARIN SODIUM 40 MG/0.4 ML SYG SUBCU SCH (21:18)
[2016-10-18] MEDS: risperiDONE 0.25 MG TAB PO SCH (21:19)
[2016-10-18] MEDS: MIRTAZAPINE 15 MG TAB PO SCH (21:19)
[2016-10-19] MEDS: PANTOPRAZOLE SODIUM TAB 40 MG PO SCH (06:11)
[2016-10-19] MEDS: TIOTROPIUM INHALER INH SCH (08:09)
[2016-10-19] MEDS: FLUTICASONE/SALMETEROL 100/50 1 PUFF INH INH SCH (08:09)
[2016-10-19] MEDS: CLOPIDOGREL 75 MG TAB PO SCH (09:23)
[2016-10-19] MEDS: BIFIDOBACTERIUM INFANTIS 4 MG CAP PO SCH (09:23)
[2016-10-19] MEDS: DOCUSATE SODIUM 100 MG CAP PO SCH (09:23)
[2016-10-19] MEDS: guaiFENesin ER TAB 600 MG TAB PO SCH ×2 (09:23→20:15)
[2016-10-19] MEDS: GABAPENTIN 300 MG CAP PO SCH ×2 (09:23→20:15)
[2016-10-19] MEDS: DULoxetine HCL 30 MG CAP PO SCH (09:23)
[2016-10-19] MEDS: COLCHICINE 0.6 MG TAB PO SCH (09:24)
[2016-10-19] MEDS: predniSONE 10 MG TAB PO SCH (09:24)
--- NOTE | 2016-10-19 13:24 | PN ---
SUPERVISING PHYSICIAN: Guillermo Hale MD DATE: 10/19/16 SUBJECTIVE: The patient is lying in his hospital bed. He is asleep. He awakens easily. He has no complaints of chest pain, nausea, vomiting, diarrhea , shortness of breath. He still complains that his feet hurt some, but it has improved and he is not having difficulty getting to the bathroom with assistance. We spoke at length about his physical therapy and that he would have to participate in it to continue on Swing Bed. OBJECTIVE: VITAL SIGNS: Afebrile. Heart rate 100. Blood pressure 115/72. Respiratory rate 20. Pulse oximetry 92% on room air. LUNGS: Clear to auscultation bilaterally. CARDIAC: Regular rate and rhythm. ABDOMEN: Soft, nontender, nondistended. Bowel sounds are positive. EXTREMITIES: The area on the great toe of his left foot is no longer erythematous or warm to the touch. It is tender to palpation. NEUROLOGIC: Awake, alert and oriented times three. LABORATORY: There are no laboratory or radiographic studies available for review. ASSESSMENT: 1. Previous urinary tract infection with sepsis on previous acute admission on Acute Care showing improvement and continuation of IV antibiotic therapy through Swing Bed with the patient being on Levaquin now for a total of 10 days showing good clinical improvement with no recurrence of symptoms, but continues to have significant deconditioning while on Swing Bed requiring ongoing physical therapy. 2. Past history of acute delirium state on Acute admission that was secondary to underlying urinary tract infection and sepsis syndrome, resolved prior to admission to Swing Bed with antibiotic therapy and fluids, continues to show good improvement but continues to be significantly deconditioned and weak requiring ongoing physical therapy. 3. Chronic obstructive pulmonary disease with recent exacerbation, but stable with low dose corticosteroids. 4. Moderate dehydration on Acute Care but improved prior to admission to Swing Bed after IV therapy. 5. Mild dementia by history with delirium and paranoid ideations although showing improvement with initiation of previous IV therapy including fluids and antibiotic showing improvement and felt to be secondary to his previous underlying urinary tract infection. 6. Significant weight loss within the last 2 to 3 months with ongoing followup to address a normal CT scan of the abdomen showing a distal rectosigmoid localized mucosal thickening suggesting the need for further endoscopy evaluation to address any concerns of pathologist element contributing to his underlying weight loss. 7. Leukocytosis on Acute Care secondary to sepsis and urinary tract infection having resolved prior to discharge and admission to Swing Bed. 8. Acute gout affecting left great toe, improved with colchicine and steroids. He is encouraged to participate more fully in his physical therapy strengthening and conditioning. PLAN: We will continue present supportive care. I have encouraged him to participate with his physical therapy as much as possible. We will make sure he gets on some gout medications after this acute phase is over with. He will continue with physical therapy for strengthening and conditioning. We will follow him closely and when appropriate, he will be discharged. Dr. Hale is the collaborating physician and available for consultation. #[id number] [facility]
[2016-10-19] MEDS: ENOXAPARIN SODIUM 40 MG/0.4 ML SYG SUBCU SCH (20:15)
[2016-10-19] MEDS: MELATONIN 3 MG TAB PO SCH (20:15)
[2016-10-19] MEDS: risperiDONE 0.25 MG TAB PO SCH (20:15)
[2016-10-19] MEDS: DONEPEZIL HCL 5 MG TAB PO SCH (20:16)
[2016-10-19] MEDS: TAMSULOSIN 0.4 MG CAP PO SCH (20:16)
[2016-10-19] MEDS: MIRTAZAPINE 15 MG TAB PO SCH (20:16)
[2016-10-19] MEDS: ATORVASTATIN 20 MG TAB PO SCH (20:16)
[2016-10-19] MEDS: FERROUS GLUCONATE 325 MG TAB PO SCH (20:16)
[2016-10-20] MEDS: PANTOPRAZOLE SODIUM TAB 40 MG PO SCH (05:44)
[2016-10-20] MEDS: FLUTICASONE/SALMETEROL 100/50 1 PUFF INH INH SCH (08:45)
[2016-10-20] MEDS: TIOTROPIUM INHALER INH SCH (08:45)
[2016-10-20] MEDS: COLCHICINE 0.6 MG TAB PO SCH (09:04)
[2016-10-20] MEDS: GABAPENTIN 300 MG CAP PO SCH ×2 (09:05→20:13)
[2016-10-20] MEDS: BIFIDOBACTERIUM INFANTIS 4 MG CAP PO SCH (09:05)
[2016-10-20] MEDS: DULoxetine HCL 30 MG CAP PO SCH (09:05)
[2016-10-20] MEDS: guaiFENesin ER TAB 600 MG TAB PO SCH ×2 (09:05→20:13)
[2016-10-20] MEDS: predniSONE 10 MG TAB PO SCH (09:05)
[2016-10-20] MEDS: DOCUSATE SODIUM 100 MG CAP PO SCH (09:05)
[2016-10-20] MEDS: CLOPIDOGREL 75 MG TAB PO SCH (09:07)
[2016-10-20] MEDS: MELATONIN 3 MG TAB PO SCH (20:12)
[2016-10-20] MEDS: FERROUS GLUCONATE 325 MG TAB PO SCH (20:12)
[2016-10-20] MEDS: ENOXAPARIN SODIUM 40 MG/0.4 ML SYG SUBCU SCH (20:12)
[2016-10-20] MEDS: ATORVASTATIN 20 MG TAB PO SCH (20:13)
[2016-10-20] MEDS: DONEPEZIL HCL 5 MG TAB PO SCH (20:13)
[2016-10-20] MEDS: TAMSULOSIN 0.4 MG CAP PO SCH (20:13)
[2016-10-20] MEDS: MIRTAZAPINE 15 MG TAB PO SCH (20:13)
[2016-10-20] MEDS: risperiDONE 0.25 MG TAB PO SCH (20:13)
[2016-10-21] MEDS: PANTOPRAZOLE SODIUM TAB 40 MG PO SCH (05:41)
[2016-10-21] MEDS: MELATONIN 3 MG TAB PO SCH ×2 (06:27→20:24)
[2016-10-21] MEDS: TIOTROPIUM INHALER INH SCH (08:35)
[2016-10-21] MEDS: FLUTICASONE/SALMETEROL 100/50 1 PUFF INH INH SCH (08:35)
[2016-10-21] MEDS: BIFIDOBACTERIUM INFANTIS 4 MG CAP PO SCH (09:10)
[2016-10-21] MEDS: CLOPIDOGREL 75 MG TAB PO SCH (09:10)
[2016-10-21] MEDS: GABAPENTIN 300 MG CAP PO SCH ×2 (09:10→20:24)
[2016-10-21] MEDS: DOCUSATE SODIUM 100 MG CAP PO SCH (09:10)
[2016-10-21] MEDS: predniSONE 10 MG TAB PO SCH (09:10)
[2016-10-21] MEDS: COLCHICINE 0.6 MG TAB PO SCH (09:10)
[2016-10-21] MEDS: DULoxetine HCL 30 MG CAP PO SCH (09:10)
[2016-10-21] MEDS: guaiFENesin ER TAB 600 MG TAB PO SCH ×2 (09:11→20:24)
[2016-10-21] MEDS: ATORVASTATIN 20 MG TAB PO SCH (20:23)
[2016-10-21] MEDS: DONEPEZIL HCL 5 MG TAB PO SCH (20:24)
[2016-10-21] MEDS: FERROUS GLUCONATE 325 MG TAB PO SCH (20:24)
[2016-10-21] MEDS: ENOXAPARIN SODIUM 40 MG/0.4 ML SYG SUBCU SCH (20:24)
[2016-10-21] MEDS: risperiDONE 0.25 MG TAB PO SCH (20:24)
[2016-10-21] MEDS: MIRTAZAPINE 15 MG TAB PO SCH (20:24)
[2016-10-21] MEDS: TAMSULOSIN 0.4 MG CAP PO SCH (20:25)
[2016-10-22] MEDS: PANTOPRAZOLE SODIUM TAB 40 MG PO SCH (05:55)
[2016-10-22] MEDS: DOCUSATE SODIUM 100 MG CAP PO SCH (08:32)
[2016-10-22] MEDS: GABAPENTIN 300 MG CAP PO SCH ×2 (08:32→20:25)
[2016-10-22] MEDS: CLOPIDOGREL 75 MG TAB PO SCH (08:32)
[2016-10-22] MEDS: predniSONE 10 MG TAB PO SCH (08:32)
[2016-10-22] MEDS: BIFIDOBACTERIUM INFANTIS 4 MG CAP PO SCH (08:32)
[2016-10-22] MEDS: COLCHICINE 0.6 MG TAB PO SCH (08:32)
[2016-10-22] MEDS: guaiFENesin ER TAB 600 MG TAB PO SCH ×2 (08:32→20:25)
[2016-10-22] MEDS: DULoxetine HCL 30 MG CAP PO SCH (08:32)
[2016-10-22] MEDS: TIOTROPIUM INHALER INH SCH (09:18)
[2016-10-22] MEDS: FLUTICASONE/SALMETEROL 100/50 1 PUFF INH INH SCH (09:18)
[2016-10-22] MEDS: DONEPEZIL HCL 5 MG TAB PO SCH (20:24)
[2016-10-22] MEDS: ATORVASTATIN 20 MG TAB PO SCH (20:24)
[2016-10-22] MEDS: TAMSULOSIN 0.4 MG CAP PO SCH (20:24)
[2016-10-22] MEDS: FERROUS GLUCONATE 325 MG TAB PO SCH (20:24)
[2016-10-22] MEDS: MELATONIN 3 MG TAB PO SCH (20:25)
[2016-10-22] MEDS: ENOXAPARIN SODIUM 40 MG/0.4 ML SYG SUBCU SCH (20:25)
[2016-10-22] MEDS: risperiDONE 0.25 MG TAB PO SCH (20:26)
[2016-10-22] MEDS: MIRTAZAPINE 15 MG TAB PO SCH (20:26)
[2016-10-23] MEDS: PANTOPRAZOLE SODIUM TAB 40 MG PO SCH (05:46)
[2016-10-23] MEDS: FLUTICASONE/SALMETEROL 100/50 1 PUFF INH INH SCH (09:24)
[2016-10-23] MEDS: TIOTROPIUM INHALER INH SCH (09:24)
[2016-10-23] MEDS: DULoxetine HCL 30 MG CAP PO SCH (09:40)
[2016-10-23] MEDS: predniSONE 10 MG TAB PO SCH ×3 (09:40→09:49)
[2016-10-23] MEDS: BIFIDOBACTERIUM INFANTIS 4 MG CAP PO SCH (09:40)
[2016-10-23] MEDS: GABAPENTIN 300 MG CAP PO SCH ×2 (09:41→20:57)
[2016-10-23] MEDS: guaiFENesin ER TAB 600 MG TAB PO SCH ×2 (09:41→20:58)
[2016-10-23] MEDS: DOCUSATE SODIUM 100 MG CAP PO SCH (09:41)
[2016-10-23] MEDS: CLOPIDOGREL 75 MG TAB PO SCH (09:41)
[2016-10-23] MEDS: COLCHICINE 0.6 MG TAB PO SCH (09:43)
--- NOTE | 2016-10-23 15:25 | PN ---
SUPERVISING PHYSICIAN: Vlad Elkins MD DATE: 10/23/16 SUBJECTIVE: The patient is currently sitting in the bedside chair eating lunch. I did see him do physical therapy this morning and he is working well with physical therapy. He says his feet are no longer hurting. OBJECTIVE: VITAL SIGNS: He remains afebrile with temperature 97.6. Pulse 77. Blood pressure 101/64. Respirations 18. Saturation 95% on room air. I&Os remain fairly balanced. He continues to have frequent bowel movements. GENERAL: CHEST: Lungs clear to auscultation bilaterally. HEART: Regular rate and rhythm. ABDOMEN: Soft, nontender. Positive bowel sounds. ABDOMEN: Obese, but soft and nontender. Positive bowel sounds. EXTREMITIES: No cyanosis, clubbing or edema. NEUROLOGIC: Alert and oriented times three. LABORATORY: No additional laboratories were submitted. RADIOLOGY: No additional radiographic studies were submitted. ASSESSMENT: 1. Previous urinary tract infection with sepsis on acute admission on Acute Care, showing improvement and continuation of IV antibiotic therapy through Swing Bed, having finished Levaquin for a total of 10 days, continuing to show clinical improvement with no recurrence of symptoms, but continues with deconditioning while on Swing Bed requiring ongoing physical therapy. 2. History of acute delirium state on Acute admission that was exacerbated by underlying urinary tract infection and sepsis syndrome noted in #1, resolved prior to admission to Swing Bed with antibiotic therapy and fluids, continues to show improvement daily, but has significant deconditioning and weakness requiring ongoing therapy. 3. Chronic obstructive pulmonary disease with recent exacerbation, but stable with low dose corticosteroids while on Swing Bed. 4. Moderate dehydration on Acute Care, but resolved prior to admission to Swing Bed, stable. 5. Mild dementia by past history with paranoid ideations, although showing improvement with initiation of previous IV therapy and fluids, which was all felt to be secondary to the underlying urinary tract infection, which has since resolved. 6. Significant weight loss within the last 2 to 3 months with ongoing followup required to address a normal CT scan of the abdomen showing a distal rectosigmoid localized mucosal thickening suggesting the need for endoscopy and colonoscopy to further address concerns of pathological elements contributing to his underlying weight loss. 7. Leukocytosis on Acute Care secondary to sepsis and urinary tract infection, having resolved prior to discharge and admission to Swing Bed. 8. Acute gout affecting left great toe, improved with colchicine and steroids. He to need ongoing physical therapy as his gout flare resulted in him missing approximately two days of physical therapy. PLAN: I will continue to monitor the patient for participation in his physical therapy and reconditioning. He is again encouraged to perform his physical therapy as directed. He continues on a dose of colchicine and low dose steroids in regards to past gout flare-up, which has now resolved. We will anticipate discharge at the discretion of physical therapy with anticipation of hopefully discharging this week, possibly Sunday. Until then, we will continue to monitor the patient closely and treat appropriately. #[id number] [facility]
[2016-10-23] MEDS: DONEPEZIL HCL 5 MG TAB PO SCH (20:56)
[2016-10-23] MEDS: TAMSULOSIN 0.4 MG CAP PO SCH (20:56)
[2016-10-23] MEDS: ENOXAPARIN SODIUM 40 MG/0.4 ML SYG SUBCU SCH (20:56)
[2016-10-23] MEDS: MIRTAZAPINE 15 MG TAB PO SCH (20:57)
[2016-10-23] MEDS: FERROUS GLUCONATE 325 MG TAB PO SCH (20:57)
[2016-10-23] MEDS: risperiDONE 0.25 MG TAB PO SCH (20:57)
[2016-10-23] MEDS: MELATONIN 3 MG TAB PO SCH (20:57)
[2016-10-23] MEDS: ATORVASTATIN 20 MG TAB PO SCH (20:58)
[2016-10-24] MEDS: PANTOPRAZOLE SODIUM TAB 40 MG PO SCH (06:15)
[2016-10-24] MEDS: TIOTROPIUM INHALER INH SCH (09:01)
[2016-10-24] MEDS: FLUTICASONE/SALMETEROL 100/50 1 PUFF INH INH SCH (09:01)
[2016-10-24] MEDS: predniSONE 10 MG TAB PO SCH (09:35)
[2016-10-24] MEDS: BIFIDOBACTERIUM INFANTIS 4 MG CAP PO SCH (09:35)
[2016-10-24] MEDS: DOCUSATE SODIUM 100 MG CAP PO SCH (09:35)
[2016-10-24] MEDS: GABAPENTIN 300 MG CAP PO SCH ×2 (09:35→21:47)
[2016-10-24] MEDS: CLOPIDOGREL 75 MG TAB PO SCH (09:35)
[2016-10-24] MEDS: DULoxetine HCL 30 MG CAP PO SCH (09:35)
[2016-10-24] MEDS: guaiFENesin ER TAB 600 MG TAB PO SCH ×2 (09:35→21:48)
[2016-10-24] MEDS: COLCHICINE 0.6 MG TAB PO SCH (09:37)
[2016-10-24] MEDS: TAMSULOSIN 0.4 MG CAP PO SCH (21:47)
[2016-10-24] MEDS: MIRTAZAPINE 15 MG TAB PO SCH (21:47)
[2016-10-24] MEDS: MELATONIN 3 MG TAB PO SCH (21:47)
[2016-10-24] MEDS: ENOXAPARIN SODIUM 40 MG/0.4 ML SYG SUBCU SCH (21:47)
[2016-10-24] MEDS: DONEPEZIL HCL 5 MG TAB PO SCH (21:47)
[2016-10-24] MEDS: ATORVASTATIN 20 MG TAB PO SCH (21:48)
[2016-10-24] MEDS: FERROUS GLUCONATE 325 MG TAB PO SCH (21:48)
[2016-10-24] MEDS: risperiDONE 0.25 MG TAB PO SCH (21:48)
[2016-10-25] MEDS: PANTOPRAZOLE SODIUM TAB 40 MG PO SCH (06:55)
[2016-10-25] MEDS: ALBUTEROL SULFATE 2.5 MG/3 ML VIAL NEB PRN (09:02)
[2016-10-25] MEDS: TIOTROPIUM INHALER INH SCH (09:03)
[2016-10-25] MEDS: FLUTICASONE/SALMETEROL 100/50 1 PUFF INH INH SCH (09:03)
[2016-10-25] MEDS: COLCHICINE 0.6 MG TAB PO SCH (10:00)
[2016-10-25] MEDS: guaiFENesin ER TAB 600 MG TAB PO SCH ×2 (10:00→20:05)
[2016-10-25] MEDS: GABAPENTIN 300 MG CAP PO SCH ×2 (10:00→20:05)
[2016-10-25] MEDS: BIFIDOBACTERIUM INFANTIS 4 MG CAP PO SCH (10:08)
[2016-10-25] MEDS: DULoxetine HCL 30 MG CAP PO SCH (10:08)
[2016-10-25] MEDS: DOCUSATE SODIUM 100 MG CAP PO SCH (10:09)
[2016-10-25] MEDS: predniSONE 10 MG TAB PO SCH (10:09)
[2016-10-25] MEDS: CLOPIDOGREL 75 MG TAB PO SCH (10:10)
[2016-10-25] MEDS: TAMSULOSIN 0.4 MG CAP PO SCH (20:04)
[2016-10-25] MEDS: FERROUS GLUCONATE 325 MG TAB PO SCH (20:05)
[2016-10-25] MEDS: risperiDONE 0.25 MG TAB PO SCH (20:05)
[2016-10-25] MEDS: DONEPEZIL HCL 5 MG TAB PO SCH (20:05)
[2016-10-25] MEDS: MIRTAZAPINE 15 MG TAB PO SCH (20:05)
[2016-10-25] MEDS: ENOXAPARIN SODIUM 40 MG/0.4 ML SYG SUBCU SCH (20:05)
[2016-10-25] MEDS: ATORVASTATIN 20 MG TAB PO SCH (20:06)
[2016-10-25] MEDS: MELATONIN 3 MG TAB PO SCH (20:06)
[2016-10-26] MEDS: PANTOPRAZOLE SODIUM TAB 40 MG PO SCH (05:58)
[2016-10-26] MEDS: FLUTICASONE/SALMETEROL 100/50 1 PUFF INH INH SCH (08:31)
[2016-10-26] MEDS: TIOTROPIUM INHALER INH SCH (08:31)
[2016-10-26] MEDS: predniSONE 10 MG TAB PO SCH (09:07)
[2016-10-26] MEDS: BIFIDOBACTERIUM INFANTIS 4 MG CAP PO SCH (09:07)
[2016-10-26] MEDS: DULoxetine HCL 30 MG CAP PO SCH (09:07)
[2016-10-26] MEDS: CLOPIDOGREL 75 MG TAB PO SCH (09:08)
[2016-10-26] MEDS: COLCHICINE 0.6 MG TAB PO SCH (09:08)
[2016-10-26] MEDS: DOCUSATE SODIUM 100 MG CAP PO SCH (09:08)
[2016-10-26] MEDS: GABAPENTIN 300 MG CAP PO SCH ×2 (09:08→20:44)
[2016-10-26] MEDS: guaiFENesin ER TAB 600 MG TAB PO SCH ×2 (09:08→20:45)
--- NOTE | 2016-10-26 14:54 | PN ---
DATE: 10/26/16 SUBJECTIVE: The patient is getting close to the end of his rehabilitation program. Because of his history of significant urinary tract infection and anemia and other potential problems before he is able to return home, we will reevaluate some of these parameters in the morning to make sure we are not missing a factor contributing to his weakness. He appears to be stronger than he has been in the past, but is still having difficulty going to the bathroom on his own. He ends sometimes even going to the restroom in the bed. His family is working on home health assistance at home when he gets home to also assist with his 's care as well. Less complaints of his gout inflammation episode previously noted. OBJECTIVE: VITAL SIGNS: Afebrile. Pulse 71. Blood pressure 118/70. Pulse oximetry 92% on room air. GENERAL: The patient is otherwise awake and alert. Fairly good hearing. Appetite is fairly good. EXTREMITIES: He has some diminished muscle tone in his lower extremities, but is able to assist with his ongoing transfer, but has not been actively going by himself to the bathroom. HEART: Grade II/ systolic murmur previously noted. LUNGS: Some rhonchi and some occasional clearing of secretions which he tends to cough out and swallow. ABDOMEN: Fairly soft with bowel movements apparently fairly normal for the patient. ASSESSMENT: 1. Significant weakness after severe infection condition, requiring ongoing rehabilitation and strengthening before it would be safe for him to return home. 2. Recent urinary tract infection with sepsis. 3. History of acute delirium state on his Acute Med/Surg admission, exacerbated by the urinary tract infection and sepsis syndrome, now requiring continuing rehabilitation to help remedy the significant de- conditioning and weakness resultant. 4. Chronic obstructive pulmonary disease with recent exacerbation, now improving. 5. Moderate dehydration, improved with hydration. 6. History of dementia in the past with some paranoid ideation, possibly directly related to the delirium state. 7. Significant weight loss over the last 2 to 3 months. 8. History of leukocytosis, improved. 9. Acute gout, affecting left great toe, improved with colchicine and steroids. PLAN: We will continue with home health acquisition at home. The patient is encouraged to actively get himself to the bathroom under his own power to assist with ongoing care when he does return home. To discuss with therapy and plan on getting him home when he is safe to be able to return to his self-care at home and to care for his . #[id number] [facility]
[2016-10-26] MEDS: ENOXAPARIN SODIUM 40 MG/0.4 ML SYG SUBCU SCH (20:40)
[2016-10-26] MEDS: ATORVASTATIN 20 MG TAB PO SCH (20:41)
[2016-10-26] MEDS: TAMSULOSIN 0.4 MG CAP PO SCH (20:41)
[2016-10-26] MEDS: FERROUS GLUCONATE 325 MG TAB PO SCH (20:41)
[2016-10-26] MEDS: DONEPEZIL HCL 5 MG TAB PO SCH (20:41)
[2016-10-26] MEDS: MIRTAZAPINE 15 MG TAB PO SCH (20:41)
[2016-10-26] MEDS: risperiDONE 0.25 MG TAB PO SCH (20:41)
[2016-10-26] MEDS: MELATONIN 3 MG TAB PO SCH (20:42)
[2016-10-27] MEDS: PANTOPRAZOLE SODIUM TAB 40 MG PO SCH (05:38)
[2016-10-27] MEDS: TIOTROPIUM INHALER INH SCH (08:38)
[2016-10-27] MEDS: FLUTICASONE/SALMETEROL 100/50 1 PUFF INH INH SCH (08:39)
[2016-10-27] MEDS: DULoxetine HCL 30 MG CAP PO SCH (09:23)
[2016-10-27] MEDS: DOCUSATE SODIUM 100 MG CAP PO SCH (09:23)
[2016-10-27] MEDS: guaiFENesin ER TAB 600 MG TAB PO SCH (09:23)
[2016-10-27] MEDS: BIFIDOBACTERIUM INFANTIS 4 MG CAP PO SCH (09:24)
[2016-10-27] MEDS: GABAPENTIN 300 MG CAP PO SCH (09:24)
[2016-10-27] MEDS: predniSONE 10 MG TAB PO SCH (09:24)
[2016-10-27] MEDS: COLCHICINE 0.6 MG TAB PO SCH (09:24)
[2016-10-27] MEDS: CLOPIDOGREL 75 MG TAB PO SCH (09:24)
[2016-10-27 16:25] VITALS: BP 121/67; TEMP 97.6; O2SAT 92
--- NOTE | 2016-10-27 17:59 | DS ---
DISCHARGE DIAGNOSIS: 1. Significant urinary tract infection with sepsis involving Pseudomonas aeruginosa requiring prolonged treatment. 2. Significant weakness as a result of the severe urinary tract infection requiring rehabilitation and strengthening to assist with the deconditioning so that the patient would be able to safely return home when able to. 3. History of acute delirium state on his acute Med/Surg admission recently significantly exacerbated by urinary tract infection with sepsis syndrome with Pseudomonas and showing significant improvement as the treatment continued. 4. Chronic obstructive pulmonary disease with a recent acute exacerbation now showing stabilization. 5. Moderate dehydration, improved with supplemental hydration. 6. History of dementia in the past with some paranoid ideations possibly related and contributed to by the delirium state. 7. Significant weight loss over the last 2 to 3 months. 8. History of leukocytosis, improved. 9. Acute gout exacerbation involving the left great toe, improving with Colchicine and corticosteroid administration. HISTORY OF PRESENT ILLNESS: This 76 year-old white male had been originally admitted to the hospital on 10/08/16 and was found to be grossly confused, quite combative and difficult to manage. The delirium continued until it was found that he did have a significant urinary tract infection with a Pseudomonas species requiring specific treatment which showed improvement in both the infection as well as the delirium state. He ended up to be very weak and was unable to return home safely. His has MS and is unable to care for him and he, in fact, is the caregiver for his . He was admitted to a Swing Bed rehabilitation status to increase activity, strength and confidence to enable him to eventually return home where he will be able to continue with ongoing help with his . During his stay, though, Social Service was helpful in getting home health as well as sitters to assist with the care of both the and the at this time. LABORATORY: White count was normal at 10,300 after the urinary tract infection was treated. Hemoglobin was up to 11.7 at discharge. Electrolytes on discharge were generally within normal limits as was kidney function. Recent liver enzymes were slightly elevated with AST 47 and ALT 68. Albumin is low at 2.3. Urinalysis repeat on the day before discharge was within normal limits and clean. Pseudomonas aeruginosa grew on the urine while in the hospital before his Swing Bed admission. No x-rays were obtained. HOSPITAL COURSE: The patient had a difficult time but slowly increased in strength and his ability to cooperate and participate in his rehabilitation. He reached the point where he was very much ready to continue with outpatient therapy with home health intervention to assist at home. Home health will also assist with some of his 's care as well. PLAN: The patient is discharged home to have continued regular diet and increase activity as tolerated. Suggest seeing Dr. Ferguson in the next 7 to 10 days. Slowly increase activity level, yet no falling. Eat a nutritious diet. Drink plenty of fluids. Return if not improving. Close followup suggested. #[id number] [facility]
== END 2016-10-27 17:10 | disposition home or self-care (01) | DRG 948 ==
LOC: MS 16:00
PROVIDERS: ADMIT Nurse Practitioner Family; ATTEND Emergency Medicine
DX: R53.1 Weakness (principal); Z68.1 Body mass index [BMI] 19.9 or less, adult; R29.6 Repeated falls; F03.90 Unspecified dementia, unspecified severity, without behavioral disturbance, psychotic disturbance, mood disturbance, and anxiety; E78.5 Hyperlipidemia, unspecified; I10 Essential (primary) hypertension; I25.10 Atherosclerotic heart disease of native coronary artery without angina pectoris; I25.2 Old myocardial infarction; N40.1 Benign prostatic hyperplasia with lower urinary tract symptoms; R39.15 Urgency of urination; J44.9 Chronic obstructive pulmonary disease, unspecified; K21.9 Gastro-esophageal reflux disease without esophagitis; R63.4 Abnormal weight loss; R93.5 Abnormal findings on diagnostic imaging of other abdominal regions, including retroperitoneum; Z74.2 Need for assistance at home and no other household member able to render care; M10.9 Gout, unspecified; G62.9 Polyneuropathy, unspecified; Z96.651 Presence of right artificial knee joint; Z79.51 Long term (current) use of inhaled steroids; Z87.440 Personal history of urinary (tract) infections; Z87.891 Personal history of nicotine dependence; Z95.5 Presence of coronary angioplasty implant and graft; Z79.02 Long term (current) use of antithrombotics/antiplatelets; Z79.899 Other long term (current) drug therapy

== ENCOUNTER 2016-10-28 11:41 | Emergency (ER) | payer MEDICARE, OTHER ==
[2016-10-28 12:04] VITALS: TEMP 97.7
[2016-10-28] MEDS ORDERED: SODIUM CHLORIDE 0.9% 1000ML 500 ML IVS ONE (12:48)
--- NOTE | 2016-10-28 12:53 | RAD ---
PROCEDURE: XR CHEST 1 VIEW HISTORY: chest pain COMPARISON: 10/11/2016 TECHNIQUE: Single projection of the chest was done. FINDINGS: There are underlying changes of COPD. Scoliotic curvature of the thoracic spine is noted . There are no discrete airspace infiltrates, pneumothoraces or pleural effusions. The pulmonary vascularity is normal. The cardiomediastinal silhouette is unremarkable for patient's age and sex. IMPRESSION: There is no acute pleural-parenchymal process seen in the imaged lung alberts. Location of Interpretation: Teleradiology Electronically signed by: Thad Soto MD 10/28/2016 12:52 PM CDT Workstation: [id number]
--- NOTE | 2016-10-28 16:36 | ED.PDOC ---
History of Present Illness - General Chief Complaint: Cardiovascular Problem Stated Complaint: chest pain Time Seen by Provider: 10/28/16 11:47 Source: patient Exam Limitations: no limitations - History of Present Illness Initial Comments: the patient is a 76-year-old male presenting to the emergency room after a 15 minute episode of right upper chest painstarting this morning after he ate breakfast. No definite palpitations. No shortness of breath. The pain he reports was strong. He cannot tell if it was made worse by taking a deep breath or moving. No vomiting. No nausea. No syncope or near syncope. The patient was just recently in the hospital for a two-week period for a urinary tract infection. He did have significant deconditioning and underwent some rehabilitation here in the hospital. He is getting set up for rehabilitation as an outpatient with home health. He is getting around currently with a wheelchair. The patient's blood pressures areon the low end of normal for his age group. 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 He is also apparently lost a significant amount of weight over the last year or so. His primary care doctor is working with these issues. Timing/Duration: momentarily Severity: moderate Improving Factors: nothing Worsening Factors: nothing Associated Symptoms: chest pain, malaise, weakness Allergies/Adverse Reactions: Allergies NO KNOWN ALLERGY Allergy (Verified 09/27/16 11:56) Home Medications: Ambulatory Orders Albuterol Sulfate 1 neb INH Q4H PRN 05/13/12 Clopidogrel Bisulfate [Plavix] 1 tablet PO DAILY 05/13/12 Tamsulosin HCl [Flomax] 1 tablet PO BEDTIME 05/13/12 Donepezil HCl [Aricept] 5 mg PO BEDTIME 09/27/16 Lisinopril 10 mg PO DAILY 09/27/16 Ranitidine HCl 150 mg PO BID 09/27/16 Fluticasone/Salmeterol 100/50 [Advair 100/50 Diskus] 1 puff INH DAILY 09/28/16 Tiotropium [place] Monohydrate [Spiriva Handihaler] 18 mcg IN DAILY 09/28/16 guaiFENesin ER TAB [Mucinex Tab] 1,200 mg PO BID 09/30/16 Ferrous Gluconate [Fergon] 325 mg PO DAILY 10/08/16 Gabapentin 300 mg PO DAILY 10/08/16 Mirtazapine [Remeron] 15 mg PO BEDTIME 10/08/16 Atorvastatin Calcium [Lipitor] 80 mg PO DAILY 10/13/16 Bifidobacterium Infantis [Align] 4 mg PO DAILY 10/13/16 DULoxetine HCL [Cymbalta] 30 mg PO DAILY 10/13/16 Melatonin 6 mg PO BEDTIME 10/13/16 Pantoprazole Tablet [Protonix] 40 mg PO 0630 10/13/16 Risperidone [Risperdal] 0.5 mg PO BEDTIME 10/13/16 predniSONE 10 mg PO DAILY 10/13/16 Review of Systems - Review of Systems Constitutional: States: malaise, weakness - generalized EENTM: States: no symptoms reported Respiratory: States: no symptoms reported Cardiology: States: chest pain Gastrointestinal/Abdominal: States: no symptoms reported Genitourinary: States: no symptoms reported Musculoskeletal: States: no symptoms reported Skin: States: no symptoms reported Neurological: States: anxiety, depressed, weakness - generalized Endocrine: States: no symptoms reported All other Systems: No Change from Baseline Past Medical History (General) - Patient Medical History Hx Seizures: No Hx Stroke: No Hx Dementia: No Hx Asthma: No Hx of COPD: Yes Hx Cardiac Disorders: Yes - stent Hx Congestive Heart Failure: No Hx Pacemaker: No Hx Hypertension: Yes Hx Thyroid Disease: No Hx Diabetes: No Hx Gastroesophageal Reflux: - ulcers Hx Renal Disease: No Hx Cancer: No Hx of HIV: No Hx Hepatitis C: No Hx MRSA: No - Vaccination History Hx Tetanus, Diphtheria Vaccination: No Hx Influenza Vaccination: Yes Hx Pneumococcal Vaccination: Yes - Social History Hx Tobacco Use: Yes Hx Chewing Tobacco Use: No Hx Alcohol Use: No Hx Substance Use: No Hx Substance Use Treatment: No Hx Depression: No Hx Physical Abuse: No Hx Emotional Abuse: No Hx Suspected Abuse: No - Activities of Daily Living Hospice Agency (if applicable):: None - Female History Patient is a Female of Child Bearing Age (10 -59 yrs old): No Patient : No Family Medical History - Family History Father Family History: Unknown Living Status: Hx Family Asthma: No Hx Cardiac Disease: Yes Hx Family Cancer: Yes Physical Exam - Physical Exam General Appearance: Alert, No apparent distress Eye Exam: bilateral normal Ears, Nose, Throat: hearing grossly normal, normal ENT inspection, normal pharynx Neck: non-tender, full range of motion, supple Respiratory: chest non-tender, lungs clear, normal breath sounds, no respiratory distress, no accessory muscle use Cardiovascular/Chest: normal peripheral pulses, regular rate, rhythm, no edema Peripheral Pulses: radial,right: 2+, radial,left: 2+, dorsalis pedis,right: 2+, dorsalis pedis,left: 2+ Gastrointestinal/Abdominal: non tender, soft Rectal Exam: deferred Back Exam: normal inspection, no CVA tenderness Extremity: normal range of motion, non-tender, normal inspection, no pedal edema , normal capillary refill Neurologic: alert, oriented x 3 - flat affect Skin Exam: normal color Comments: Vital Signs - 8 hr 10/28/16 10/28/16 10/28/16 11:55 12:08 13:44 Temperature 97.7 F Pulse Rate [ 70 70 84 pulse ox] Respiratory 16 16 20 Rate Blood Pressure 105/55 103/66 [Left Arm] O2 Sat by Pulse 98 Oximetry 10/28/16 10/28/16 13:45 13:46 Temperature Pulse Rate [ 84 98 H pulse ox] Respiratory 20 20 Rate Blood Pressure 117/62 104/59 [Left Arm] O2 Sat by Pulse Oximetry Progress - Progress Progress: 10/28/16 16:39 the patient is a 76-year-old male presenting to the emergency room after 15 minutes of chest pain at home. The chest pain resolved prior to arrival of EMS. The patient does have low normal blood pressure and significant fatigue. He is significantly deconditioned from his recent hospital stay. I do believe he would benefit from longer term inpatient rehabilitation. He does need to discuss this with his primary care doctor in the coming week. Additionally due to the lower blood pressures, I'm going to recommend that his lisinopril be held. He does have at least 5 other medications on his medication list that can be significantly sedating and also cause some mild low blood pressure which can cause further fatigue. his high- dose cholesterol medication may also be causing symptoms for him. He should discuss these medications with his primary care doctor to see how they can be optimized for his functionality. eR warnings were given. Clinically the chest pain is most likely musculoskeletal in origin. he needs to keep follow-up with his home health. - Results/Orders Results/Orders: 10/28/16 11:48 Telemetry .CONTINUOUS Vital Signs-Tilt PRN 10/28/16 12:00 EKG STAT 10/28/16 14:10 SPUTUM CULTURE Stat Laboratory Results - last 24 hr 10/28/16 10/28/16 10/28/16 11:15 11:15 11:15 WBC 8.5 RBC 4.10 L Hgb 13.0 L Hct 39.2 L MCV 95.5 H MCH 31.7 H MCHC 33.2 RDW 14.7 H Plt Count 328 MPV 7.1 L Absolute Neuts (auto) 6.30 Absolute Lymphs (auto) 1.20 Absolute Monos (auto) 0.90 H Absolute Eos (auto) 0.10 Absolute Basos (auto) 0.00 Neutrophils % 74.2 Lymphocytes % 13.7 L Monocytes % 10.3 H Eosinophils % 1.2 Basophils % 0.6 PT 10.8 INR 0.960 PTT (SP) 28.4 D-Dimer, Quantitative 402 H* Sodium 140 Potassium 3.7 Chloride 103 Carbon Dioxide 27 Anion Gap 13.7 BUN 16 Creatinine 0.94 BUN/Creatinine Ratio 17.0 Random Glucose 131 H D Serum Osmolality 282.4 Calcium 9.0 Magnesium Total Bilirubin 0.5 AST 29 ALT 47 Alkaline Phosphatase 113 Creatine Kinase 44 CK-MB (CK-2) 6.3 H* CK-MB (CK-2) % 14.32 H Troponin I 0.04 B-Natriuretic Peptide 281.0 H* Serum Total Protein 6.0 L Albumin 2.9 L Globulin 3.1 Albumin/Globulin Ratio 0.9 L Urine Color Urine Appearance Urine pH Ur Specific [place] Urine Protein Urine Glucose (UA) Urine Ketones Urine Blood Urine Nitrite Urine Bilirubin Urine Urobilinogen Ur Leukocyte Esterase Urine RBC Urine WBC Ur Epithelial Cells Urine Bacteria 10/28/16 10/28/16 10/28/16 11:15 14:10 14:45 WBC RBC Hgb Hct MCV MCH MCHC RDW Plt Count MPV Absolute Neuts (auto) Absolute Lymphs (auto) Absolute Monos (auto) Absolute Eos (auto) Absolute Basos (auto) Neutrophils % Lymphocytes % Monocytes % Eosinophils % Basophils % PT INR PTT (SP) D-Dimer, Quantitative Sodium Potassium Chloride Carbon Dioxide Anion Gap BUN Creatinine BUN/Creatinine Ratio Random Glucose Serum Osmolality Calcium Magnesium 2.1 Total Bilirubin AST ALT Alkaline Phosphatase Creatine Kinase 41 CK-MB (CK-2) 5.7 H* CK-MB (CK-2) % Not Reportable Troponin I 0.04 B-Natriuretic Peptide Serum Total Protein Albumin Globulin Albumin/Globulin Ratio Urine Color Yellow Urine Appearance Clear Urine pH 7.5 Ur Specific [place] 1.015 Urine Protein Negative Urine Glucose (UA) Negative Urine Ketones Negative Urine Blood Negative Urine Nitrite Negative Urine Bilirubin Negative Urine Urobilinogen 0.2 Ur Leukocyte Esterase Negative Urine RBC 0 Urine WBC 0-1 Ur Epithelial Cells 0 Urine Bacteria 0 chest x-ray shows no acute pathology. EKG shows normal sinus rhythm. 78 bpm. Normal QT interval. Slow R-wave progression in anterior leads. No previous recent EKGs to compare to. First degree AV block. Departure - Departure Clinical Impression: Chest pain, atypical Disposition: Discharge to Home or Self Care Condition: Fair Departure Forms: ED Discharge - Pt. Copy, Patient Portal Self Enrollment Instructions: DI for Atypical Chest Pain Diet: regular diet Activity: increase activity as tolerated Referrals: Cordell Ferguson MD [Primary Care Provider] - 1-5 Days Home Medications: Ambulatory Orders Albuterol Sulfate 1 neb INH Q4H PRN 05/13/12 Clopidogrel Bisulfate [Plavix] 1 tablet PO DAILY 05/13/12 Tamsulosin HCl [Flomax] 1 tablet PO BEDTIME 05/13/12 Donepezil HCl [Aricept] 5 mg PO BEDTIME 09/27/16 Lisinopril 10 mg PO DAILY 09/27/16 Ranitidine HCl 150 mg PO BID 09/27/16 Fluticasone/Salmeterol 100/50 [Advair 100/50 Diskus] 1 puff INH DAILY 09/28/16 Tiotropium [place] Monohydrate [Spiriva Handihaler] 18 mcg IN DAILY 09/28/16 guaiFENesin ER TAB [Mucinex Tab] 1,200 mg PO BID 09/30/16 Ferrous Gluconate [Fergon] 325 mg PO DAILY 10/08/16 Gabapentin 300 mg PO DAILY 10/08/16 Mirtazapine [Remeron] 15 mg PO BEDTIME 10/08/16 Atorvastatin Calcium [Lipitor] 80 mg PO DAILY 10/13/16 Bifidobacterium Infantis [Align] 4 mg PO DAILY 10/13/16 DULoxetine HCL [Cymbalta] 30 mg PO DAILY 10/13/16 Melatonin 6 mg PO BEDTIME 10/13/16 Pantoprazole Tablet [Protonix] 40 mg PO 30 10/13/16 Risperidone [Risperdal] 0.5 mg PO BEDTIME 10/13/16 predniSONE 10 mg PO DAILY 10/13/16 Additional Instructions: the patient is a 76-year-old male presenting to the emergency room after 15 minutes of chest pain at home. The chest pain resolved prior to arrival of EMS. The patient does have low normal blood pressure and significant fatigue. He is significantly deconditioned from his recent hospital stay. I do believe he would benefit from longer term inpatient rehabilitation. He does need to discuss this with his primary care doctor in the coming week. Additionally due to the lower blood pressures, I'm going to recommend that his lisinopril be held. He does have at least 5 other medications on his medication list that can be significantly sedating and also cause some mild low blood pressure which can cause further fatigue. his high- dose cholesterol medication may also be causing symptoms for him. He should discuss these medications with his primary care doctor to see how they can be optimized for his functionality. eR warnings were given. Clinically the chest pain is most likely musculoskeletal in origin. he needs to keep follow-up with his home health.
[2016-10-28 17:28] VITALS: BP 90/45; O2SAT 96
== END 2016-10-28 17:28 | disposition home or self-care (01) ==
LOC: ER 11:41
DX: R07.89 Other chest pain (principal); I44.0 Atrioventricular block, first degree; I10 Essential (primary) hypertension; J44.9 Chronic obstructive pulmonary disease, unspecified; Z79.899 Other long term (current) drug therapy; Z79.02 Long term (current) use of antithrombotics/antiplatelets; Z98.61 Coronary angioplasty status; Z87.891 Personal history of nicotine dependence
CPT/HCPCS: 36415; 71010; 80053; 81001; 82550; 82553; 83735; 83880; 84484; 85025; 85379; 85610; 85730; 87070; 93005; J7030

== ENCOUNTER 2016-10-29 10:51 | Observation (INO) | payer MEDICARE, OTHER ==
--- NOTE | 2016-10-29 11:17 | ED.PDOC ---
History of Present Illness - General Chief Complaint: General Stated Complaint: weakness,cough,low BP Time Seen by Provider: 10/29/16 11:12 Source: patient, RN notes reviewed, Vital Signs reviewed, EMS notes reviewed Exam Limitations: no limitations - History of Present Illness Initial Comments: Georgi Heath 76 y/o male with history of long standing copd brought by ems after he continued to feel weak since yesterday was seen here initially sent home labs were all fine but stated had hard time getting up going to the bathroom.EMS stated that his blood pressure systolic -88mmhg and desaturated to 90% RA Timing/Duration: getting worse Severity: moderate Improving Factors: nothing Worsening Factors: nothing Associated Symptoms: cough, loss of appetite Allergies/Adverse Reactions: Allergies NO KNOWN ALLERGY Allergy (Verified 09/27/16 11:56) Home Medications: Ambulatory Orders Albuterol Sulfate 1 neb INH Q4H PRN 05/13/12 Clopidogrel Bisulfate [Plavix] 1 tablet PO DAILY 05/13/12 Tamsulosin HCl [Flomax] 1 tablet PO BEDTIME 05/13/12 Donepezil HCl [Aricept] 5 mg PO BEDTIME 09/27/16 Lisinopril 10 mg PO DAILY 09/27/16 Ranitidine HCl 150 mg PO BID 09/27/16 Fluticasone/Salmeterol 100/50 [Advair 100/50 Diskus] 1 puff INH DAILY 09/28/16 Tiotropium [place] Monohydrate [Spiriva Handihaler] 18 mcg IN DAILY 09/28/16 guaiFENesin ER TAB [Mucinex Tab] 1,200 mg PO BID 09/30/16 Ferrous Gluconate [Fergon] 325 mg PO DAILY 10/08/16 Gabapentin 300 mg PO DAILY 10/08/16 Mirtazapine [Remeron] 15 mg PO BEDTIME 10/08/16 Atorvastatin Calcium [Lipitor] 80 mg PO DAILY 10/13/16 Bifidobacterium Infantis [Align] 4 mg PO DAILY 10/13/16 DULoxetine HCL [Cymbalta] 30 mg PO DAILY 10/13/16 Melatonin 6 mg PO BEDTIME 10/13/16 Pantoprazole Tablet [Protonix] 40 mg PO 0630 10/13/16 Risperidone [Risperdal] 0.5 mg PO BEDTIME 10/13/16 predniSONE 10 mg PO DAILY 10/13/16 Review of Systems - Review of Systems Constitutional: States: weakness - generalized EENTM: States: no symptoms reported Respiratory: States: see HPI, cough - chronic Cardiology: States: no symptoms reported Gastrointestinal/Abdominal: States: no symptoms reported Genitourinary: States: no symptoms reported Musculoskeletal: States: joint pain Skin: States: dryness Neurological: States: no symptoms reported Endocrine: States: no symptoms reported Hematologic/Lymphatic: States: no symptoms reported Past Medical History (General) - Patient Medical History Hx Seizures: No Hx Stroke: No Hx Dementia: No Hx Asthma: No Hx of COPD: Yes Hx Cardiac Disorders: Yes - stent Hx Congestive Heart Failure: No Hx Pacemaker: No Hx Hypertension: Yes Hx Thyroid Disease: No Hx Diabetes: No Hx Gastroesophageal Reflux: - ulcers Hx Renal Disease: No Hx Cancer: No Hx of HIV: No Hx Hepatitis C: No Hx MRSA: No Surgical History: no surgical history - Vaccination History Hx Tetanus, Diphtheria Vaccination: No Hx Influenza Vaccination: Yes Hx Pneumococcal Vaccination: Yes - Social History Hx Tobacco Use: Yes - quit 20 years ago Hx Chewing Tobacco Use: No Hx Alcohol Use: No Hx Substance Use: No Hx Substance Use Treatment: No Hx Depression: No Hx Physical Abuse: No Hx Emotional Abuse: No Hx Suspected Abuse: No - Activities of Daily Living Patient Lives Alone: No - with [place] Home Health Agency (if applicable): [facility] [place] Grooming Ability: Independent Eating (Feeding) Ability: Independent Toileting Ability: Independent - Female History Patient : No Family Medical History - Family History Father Family History: Unknown Living Status: Hx Family Asthma: No Hx Cardiac Disease: Yes - mom Hx Family Cancer: Yes - dad-brain Physical Exam - Physical Exam General Appearance: Alert, Comfortable, No apparent distress Eye Exam: bilateral normal Ears, Nose, Throat: hearing grossly normal, normal ENT inspection, normal pharynx Neck: non-tender, full range of motion, supple Respiratory: chest non-tender, decreased breath sounds, crackles Cardiovascular/Chest: normal peripheral pulses, regular rate, rhythm, no edema, no gallop, systolic murmur - g3/5 Peripheral Pulses: radial,right: 1+, radial,left: 1+ Gastrointestinal/Abdominal: normal bowel sounds, non tender, soft, no organomegaly, no pulsatile mass Back Exam: normal inspection, no CVA tenderness Extremity: normal range of motion, non-tender, normal inspection, no calf tenderness Neurologic: no motor/sensory deficits, alert, normal mood/affect, oriented x 3 Skin Exam: normal color, warm/dry, rash Lymphatic: no adenopathy Progress - Progress Progress: 10/29/16 11:48 Vital Signs - 24 hr 10/29/16 10/29/16 11:02 11:12 Temperature 99.3 F Pulse Rate [ 92 H Left Brachial] Respiratory 20 20 Rate Blood Pressure 98/49 [Left Arm] O2 Sat by Pulse 98 Oximetry - Results/Orders Results/Orders: 10/29/16 12:34 [email or web address] SODIUM [Rocephin] 1 gm Sodium Chl 0.9% 50Ml Min-Bag+ [NS 50ml MINI -BAG+] 50 ml IVPB ONCE Laboratory Results - last 24 hr 10/29/16 10/29/16 10/29/16 10:46 10:46 10:46 WBC 8.3 RBC 3.81 L Hgb 12.1 L Hct 36.4 L MCV 95.3 H MCH 31.7 H MCHC 33.4 RDW 14.7 H Plt Count 273 MPV 7.3 L Absolute Neuts (auto) 6.10 Absolute Lymphs (auto) 1.00 Absolute Monos (auto) 1.00 H Absolute Eos (auto) 0.10 Absolute Basos (auto) 0.00 Neutrophils % 73.7 Lymphocytes % 12.4 L Monocytes % 12.1 H Eosinophils % 1.2 Basophils % 0.6 pCO2 pO2 HCO3 ABG pH ABG O2 Saturation ABG Base Excess ABG Deoxyhemoglobin Oxyhemoglobin % Carboxyhemoglobin % Methemoglobin % Sat Calc Total Hemoglobin Sodium 139 Potassium 4.0 Chloride 104 Carbon Dioxide 27 Anion Gap 12.0 BUN 15 Creatinine 0.89 BUN/Creatinine Ratio 16.9 Random Glucose 111 H Serum Osmolality 279.1 Lactic Acid Calcium 8.6 Total Bilirubin 0.5 AST 26 ALT 36 Alkaline Phosphatase 104 Troponin I 0.07 H* Serum Total Protein 5.4 L Albumin 2.6 L Globulin 2.8 Albumin/Globulin Ratio 0.9 L 10/29/16 10/29/16 11:19 11:47 WBC RBC Hgb Hct MCV MCH MCHC RDW Plt Count MPV Absolute Neuts (auto) Absolute Lymphs (auto) Absolute Monos (auto) Absolute Eos (auto) Absolute Basos (auto) Neutrophils % Lymphocytes % Monocytes % Eosinophils % Basophils % pCO2 37 pO2 73 L HCO3 23.2 ABG pH 7.420 ABG O2 Saturation 95.8 ABG Base Excess -0.5 ABG Deoxyhemoglobin 4.1 Oxyhemoglobin % 93.9 L Carboxyhemoglobin % 1.4 Methemoglobin % Sat 0.6 Calc Total Hemoglobin 10.4 L Sodium Potassium Chloride Carbon Dioxide Anion Gap BUN Creatinine BUN/Creatinine Ratio Random Glucose Serum Osmolality Lactic Acid 1.3 Calcium Total Bilirubin AST ALT Alkaline Phosphatase Troponin I Serum Total Protein Albumin Globulin Albumin/Globulin Ratio - EKG/XRAY/CT EKG: Sinus, nonspecific ST T wave Chg Comments: heart rate-81,pvc XRAY: chest - no acute abnormalities CT: CTA-no pe ,copd changes,infiltrates ,atelectasis CT Ordered: Yes Departure - Departure Clinical Impression: COPD exacerbation Respiratory failure with hypoxia Qualifiers: Chronicity: unspecified Qualified Code(s): J96.91 - Respiratory failure, unspecified with hypoxia Time of Disposition: 12:56 - D/W Gaviota Horne ANP-Hospitalist Disposition: Admit Patient Condition: Fair Departure Forms: Patient Portal Self Enrollment Referrals: Cordell Ferguson MD [Primary Care Provider] - 1-2 Weeks Home Medications: Ambulatory Orders Albuterol Sulfate 1 neb INH Q4H PRN 05/13/12 Clopidogrel Bisulfate [Plavix] 1 tablet PO DAILY 05/13/12 Tamsulosin HCl [Flomax] 1 tablet PO BEDTIME 05/13/12 Donepezil HCl [Aricept] 5 mg PO BEDTIME 09/27/16 Lisinopril 10 mg PO DAILY 09/27/16 Ranitidine HCl 150 mg PO BID 09/27/16 Fluticasone/Salmeterol 100/50 [Advair 100/50 Diskus] 1 puff INH DAILY 09/28/16 Tiotropium [place] Monohydrate [Spiriva Handihaler] 18 mcg IN DAILY 09/28/16 guaiFENesin ER TAB [Mucinex Tab] 1,200 mg PO BID 09/30/16 Ferrous Gluconate [Fergon] 325 mg PO DAILY 10/08/16 Gabapentin 300 mg PO DAILY 10/08/16 Mirtazapine [Remeron] 15 mg PO BEDTIME 10/08/16 Atorvastatin Calcium [Lipitor] 80 mg PO DAILY 10/13/16 Bifidobacterium Infantis [Align] 4 mg PO DAILY 10/13/16 DULoxetine HCL [Cymbalta] 30 mg PO DAILY 10/13/16 Melatonin 6 mg PO BEDTIME 10/13/16 Pantoprazole Tablet [Protonix] [place] [address]/13/16 Risperidone [Risperdal] 0.5 mg PO BEDTIME 10/13/16 predniSONE 10 mg PO DAILY 10/13/16 Decision To Admit - Decistion To Admit Decision to Admit Reason: Admit from ER Decision to Admit Date: 10/29/16 Decision to Admit Time: 12:57
[2016-10-29] MEDS ORDERED: SODIUM CHLORIDE 0.9% 500ML 500 ML IVS ONE ×2 (11:22→18:14)
[2016-10-29] MEDS ORDERED: IPRATROPIUM/ALBUTEROL 3 ML VIAL NEB ONE (11:45)
--- NOTE | 2016-10-29 12:31 | CT ---
PROCEDURE: CTA Chest HISTORY: elevated d dimer Indication: Same as above Comparison: None Technique: CT of the chest was done with intravenous contrast followed by CT angiography of the pulmonary arteries. Coronal, Sagittal and 3D volumetric MIP reconstructions were generated from the acquired data. The patient was injected with contrast intravenously, without any documented immediate adverse reactions. This exam was performed according to our departmental dose-optimization program, which includes automated exposure control, adjustment of the mA and/or KV according to the patient's size and/or use of iterative reconstruction technique. FINDINGS: There is no visualization of filling defects in the main pulmonary trunk, main right and left pulmonary arteries or their lower order branches to suggest pulmonary embolism. The bilateral main pulmonary arteries are normal in caliber. There is no evidence of interventricular septal deviation or filling defects in the cardiac chambers. There are no pneumothoraces or pleural effusions. There are underlying changes of COPD and presence of mild parenchymal scarring in the right lower lobe of the lung as well as presence of mild infiltrate in the left lower lobe of the lung Note is made of multiple bilateral benign calcified lung parenchymal granulomas as well as multiple benign calcified lymph nodes in the mediastinum and the right hilar region. The trachea, bilateral mainstem bronchi and the bilateral main segmental bronchi are patent without any intraluminal mass lesions. There is mild aneurysmal dilatation of the ascending aorta measuring 4.0 cm across. There is no clinically significant pericardial effusion. There are no pathologically enlarged lymph nodes in the mediastinum, bilateral hilar, bilateral supraclavicular or the bilateral axillary regions. The thoracic bony rib cage appears grossly unremarkable. The visualized thoracic spine shows generalized osteopenia. Limited evaluation of the evaluated upper abdomen does not show any gross abnormalities. IMPRESSION: There is no pulmonary embolism. There are underlying changes of COPD and presence of mild parenchymal scarring in the right lower lobe of the lung as well as presence of mild infiltrate in the left lower lobe of the lung There is mild aneurysmal dilatation of the ascending aorta measuring 4.0 cm across. Electronically signed by: Thad Soto MD 10/29/2016 12:31 PM CDT Workstation: [employer]
[2016-10-29] MEDS ORDERED: methylPREDNISolone SODIUM SUC 125 MG/2 ML VIAL IV ONE (12:33)
[2016-10-29] MEDS ORDERED: cefTRIAXone SODIUM 1 GM in SODIUM CHL 0.9% 50ML MIN-BAG+ 50 ML IVPB ONE (12:34)
[2016-10-29] MEDS ORDERED: cefTRIAXone SODIUM 1 GM VIAL ONE ×2 (12:37→19:53)
[2016-10-29] MEDS ORDERED: SODIUM CHL 0.9% 50ML MIN-BAG+ 50 ML IVPB ONE ×2 (12:38→19:53)
--- NOTE | 2016-10-29 13:24 | HP ---
SUPERVISING PHYSICIAN: Guillermo Hale M.D. CHIEF COMPLAINT: Weakness. HISTORY OF PRESENT ILLNESS: This is a 76 year-old male patient who came via EMS to the Emergency Room today due to weakness, shortness of breath and low blood pressure. He actually was in the Emergency Room yesterday with the same complaints and was sent home as his lab was within normal limits and his vital signs were within normal limits. Today, he actually could not get up from the chair. He felt extremely weak. EMS reported that his systolic blood pressure was 88 and he desaturated to 90% on room air and was very tachypneic with increased work of breathing. In the Emergency Room, he received several breathing treatments. His lab showed a white count of 8.3, hemoglobin 12.1, hematocrit 36.4. His blood gas showed a PO2 of 73. Sodium 139, potassium 4, chloride 104, carbon dioxide 27, BUN 15, creatinine 0.89, glucose was 111. Troponin was slightly elevated at 0.07. Lactic acid was 1.3. CTA of the chest per radiology interpretation showed no evidence of pulmonary embolism. There are underlying changes of chronic obstructive pulmonary disease present of mild parenchymal scarring in the right lower lobe of the lung as well as the presence of a mild infiltrate in the left lower lobe of the lung. There is also mild aneurysm dilatation of the ascending aorta measuring 4.0 cm across. He actually has a history of severe emphysema and has actually been in and out of the hospital multiple times over just the last few weeks, and was actually in [facility]ing [facility] admission last week where he was discharged home on home health. He has not had his hospital followup with his primary care physician, Dr. Ferguson, and is scheduled for followup on Sunday, the . He lives at home with his and she has MS. Sabillon was called for hospital admission. PAST MEDICAL HISTORY: 1. Hyperlipidemia. 2. Hypertension. 3. Coronary artery disease with a myocardial infarction. 4. Benign prostatic hypertrophy. 5. Urinary urgency. 6. Chronic obstructive pulmonary disease. 7. Gastroesophageal reflux disease. PAST SURGICAL HISTORY: 1. Right knee replacement. 2. Right shoulder surgery. 3. Left rotator cuff repair. 4. Abdominal surgery. 5. Right carotid endarterectomy. 6. Tonsillectomy. 7. Bilateral cataract removal. ALLERGIES: NO KNOWN DRUG ALLERGIES. CODE STATUS: FULL CODE. SOCIAL HISTORY: He has a history of smoking 3 packs of cigarettes a day for 25 years but quit about 20 years ago. He denies any alcohol or illicit drug use. He lives at home with his who has multiple sclerosis. REVIEW OF SYSTEMS: Somewhat difficult to obtain due to the patient's poor memory and extreme weakness right now. He gets confused rather easily. GENERAL: Positive for weight loss of approximately 25 pounds over the last 2 to 3 months. Denies fever. HEENT: Denies sinus symptoms, vision changes or ear pain. RESPIRATORY: As per History of Present Illness. CARDIAC: Denies chest pain, palpitations or tachycardia. GASTROINTESTINAL: Denies nausea and vomiting, diarrhea, constipation and abdominal pain. NEUROLOGIC: Positive for weakness and dizziness. Negative for seizures. GENITOURINARY: Positive for urinary retention and slow urine stream. Negative for hematuria or dysuria. SKIN: Denies lesions or rashes. PHYSICAL EXAMINATION: VITAL SIGNS: Temperature 99.7, heart rate 102, blood pressure was 75/36 in the Emergency Room and is now 97/60, respiratory rate 20, O2 sats are 94% on 2 liters nasal cannula. GENERAL: This is a 76 year-old thin male who is in moderate respiratory distress. HEENT: Normocephalic and atraumatic. Pupils are equal and reactive. Oropharynx is clear. NECK: Supple without mass. CHEST: Very diminished sounds throughout with rhonchi scattered in the apices. He is using accessory muscles and although he is not tachypneic, he appears very dyspneic. CARDIOVASCULAR: Regular rate and rhythm. ABDOMEN: Soft, nondistended, non-tender. Bowel sounds are positive. EXTREMITIES: No cyanosis, clubbing or edema. NEUROLOGIC: He is awake, alert and oriented times three but has a difficult time answering questions at times. LABORATORY: Labs and films are as per the History of Present Illness. ASSESSMENT: 1. Chronic obstructive pulmonary disease with an acute exacerbation. 2. Extreme progressive weakness with multiple hospital admissions in the last month or so for pneumonia, chronic obstructive pulmonary disease and weakness. 3. Hypotension. 4. Hypoxia per his arterial blood gas with a PO2 of 72. 5. A 25 pound weight loss over the last 2 to 3 months. 6. 7 mm pulmonary nodule of the right lower lobe per CT scan of 09/28/16. 7. Failure to thrive with poor medical compliance. PLAN: We will place the patient in Observation. I will repeat his cardiac enzymes as well as AM labs. Will do a chest x-ray in the morning. I have discussed with the patient at length and he realizes that he is too weak to go home. He also feels like he is too weak to go to a rehabilitation center, so we will begin processing his discharge to a care home with some physical therapy. I have ordered breathing treatments. I will hold off on restarting his antihypertensives due to his low blood pressures. I have also given him a 500 mL bolus of fluids. We will continue to monitor the patient closely and followup as needed. Dr. Hale is the collaborating physician and available for consultation. #[id number] MTDD
[2016-10-29] MEDS ORDERED: ALBUTEROL SULFATE 2.5 MG/3 ML VIAL NEB PRN (15:39)
[2016-10-29] MEDS ORDERED: ONDANSETRON INJ 4 MG/2 ML VIAL IV PRN (15:39)
[2016-10-29] MEDS ORDERED: IV SET AND CAP CHANGE INJ INJ SCH (16:00)
[2016-10-29] MEDS ORDERED: PANTOPRAZOLE SODIUM IV 40 MG VIAL IV SCH (16:00)
[2016-10-29] MEDS: IPRATROPIUM/ALBUTEROL 3 ML VIAL NEB SCH ×2 (16:35→21:13)
[2016-10-29] MEDS ORDERED: SODIUM CHLORIDE 0.9% 250ML 250 ML ONE (16:37)
[2016-10-29] MEDS ORDERED: AZITHROMYCIN IV 500 MG VIAL IVPB ONE (16:38)
[2016-10-29] MEDS: AZITHROMYCIN IV 500 MG in SODIUM CHLORIDE 0.9% 250ML 250 ML IVPB SCH (17:00)
[2016-10-29] MEDS: ENOXAPARIN SODIUM 40 MG/0.4 ML SYG SUBCU SCH (17:06)
[2016-10-29] MEDS: SODIUM CHLORIDE 0.9% (FLUSH) 10 ML SYG IV PRN (20:17)
[2016-10-30] MEDS: SODIUM CHLORIDE 0.9% (FLUSH) 10 ML SYG IV PRN ×4 (00:03→20:13)
[2016-10-30] MEDS: cefTRIAXone SODIUM 1 GM in SODIUM CHL 0.9% 50ML MIN-BAG+ 50 ML IVPB SCH ×2 (00:04→12:30)
[2016-10-30] MEDS: PANTOPRAZOLE SODIUM TAB 40 MG PO SCH (05:30)
[2016-10-30] MEDS: methylPREDNISolone SODIUM SUC 125 MG/2 ML VIAL IV SCH ×3 (05:30→18:23)
[2016-10-30] MEDS ORDERED: PANTOPRAZOLE SODIUM TAB 40 MG PO SCH (06:30)
--- NOTE | 2016-10-30 06:53 | RAD ---
Clinical History : copd , MAIN Exam : PA and lateral views of the chest 10/30/2016 12:00 AM CDT Comparisons : Portable AP view of the chest October 28, 2016 Findings : Stable emphysematous changes are noted throughout the lungs bilaterally. There is flattening of the diaphragms and increased retrosternal clear space. There is left lower lobe airspace disease.. The heart is normal in size. The mediastinal contours are normal in appearance. The thoracic spine is age appropriate. The shoulders are unremarkable. Limited evaluation of the upper abdomen demonstrates no gross abnormalities. Impression: 1. Increasing left lower lobe airspace disease. 2. Stable moderate emphysema. Electronically signed by: Luiz Law MD 10/30/2016 6:53 AM CDT
[2016-10-30] MEDS ORDERED: ATORVASTATIN 20 MG TAB PO ONE (07:34)
[2016-10-30] MEDS ORDERED: FERROUS GLUCONATE 325 MG TAB ONE ×2 (07:34→07:37)
[2016-10-30] MEDS: TIOTROPIUM INHALER INH SCH (08:32)
[2016-10-30] MEDS: FLUTICASONE/SALMETEROL 100/50 1 PUFF INH INH SCH (08:32)
[2016-10-30] MEDS: IPRATROPIUM/ALBUTEROL 3 ML VIAL NEB SCH ×4 (08:32→21:15)
[2016-10-30] MEDS: ATORVASTATIN 20 MG TAB PO SCH (08:59)
[2016-10-30] MEDS: DULoxetine HCL 30 MG CAP PO SCH (08:59)
[2016-10-30] MEDS: BIFIDOBACTERIUM INFANTIS 4 MG CAP PO SCH (08:59)
[2016-10-30] MEDS: guaiFENesin ER TAB 600 MG TAB PO SCH ×2 (08:59→20:12)
[2016-10-30] MEDS: GABAPENTIN 300 MG CAP PO SCH (09:00)
[2016-10-30] MEDS: FERROUS GLUCONATE 325 MG TAB PO SCH (09:00)
[2016-10-30] MEDS: CLOPIDOGREL 75 MG TAB PO SCH (09:02)
[2016-10-30] MEDS: BENZOCAINE-MENTH LOZ (CEPACOL) 1 EA LOZ MT PRN (10:05)
[2016-10-30] MEDS ORDERED: BENZOCAINE-MENTH LOZ (CEPACOL) 1 EA LOZ MT ONE (10:06)
[2016-10-30] MEDS: BENZONATATE PERLES 100 MG CAP PO SCH ×2 (10:21→18:23)
[2016-10-30] MEDS: HYDROcodone 5MG/APAP 325MG 1 EA TAB PO PRN ×2 (11:29→20:12)
[2016-10-30] MEDS ORDERED: SODIUM CHL 0.9% 50ML MIN-BAG+ 50 ML IVPB ONE (11:41)
[2016-10-30] MEDS ORDERED: cefTRIAXone SODIUM 1 GM VIAL ONE (11:41)
[2016-10-30] MEDS ORDERED: NITROGLYCERIN 0.4 MG 25 EA TAB SL ONE (12:16)
[2016-10-30] MEDS ORDERED: ALUM & MAG HYDROX-SIMETHICONE 30 ML UD PO PRN (13:10)
--- NOTE | 2016-10-30 13:26 | PN ---
SUPERVISING PHYSICIAN: Guillermo Hale MD DATE: 10/30/16 SUBJECTIVE: The patient is lying in bed. He is still quite weak although he states he feels better than he did yesterday. During exam, he denied any chest pain, shortness of breath, nausea or vomiting, but in the last few minutes, he has complains of some chest pain. Further testing is ongoing. OBJECTIVE: VITAL SIGNS: Temperature 99. Pulse 107. Blood pressure 179/83. Respiratory rate 20. O2 saturation 91% on 2 liters nasal cannula. LUNGS: Diminished breath sounds throughout with some expiratory wheezing. CARDIAC: Regular rate and tachycardic rhythm. ABDOMEN: Soft, nontender, nondistended. Bowel sounds are positive. EXTREMITIES: No cyanosis, clubbing or edema. NEUROLOGIC: Awake, alert and oriented times three, although he gets confused at times. LABORATORY: Hemoglobin 10.1, hematocrit 30.4. Electrolytes within normal limits with the exception that his glucose is 141. Creatinine kinase 37, troponin 0.05. Chest x-ray shows increasing left lower lobe airspace disease with stable moderate emphysema. All other labs and films have been reviewed via the EMR. ASSESSMENT: 1. Chronic obstructive pulmonary disease with an acute exacerbation. 2. Extreme progressive weakness with multiple hospital admissions in the last month or so for pneumonia, chronic obstructive pulmonary disease and weakness. 3. Hypotension. 4. Hypoxia per his arterial blood gas with a PO2 of 72. 5. A 25 pound weight loss over the last 2 to 3 months. 6. 7 mm pulmonary nodule of the right lower lobe per CT scan of 09/28/16. 7. Failure to thrive with poor medical compliance. PLAN: We will continue to monitor the patient. At the request of the family, he is to be evaluated by [facility] for rehab. If unable to go to [facility] , will most likely need shelter placement. We will await evaluation per [facility]. I called radiologist earlier today to review current CT of the chest. Patient had a 7mm pulmonary nodule on CT chest on 09/28/2016 and was not mentioned in current CT. Presently awaiting the return call. This is somewhat concerning because there may be some cancerous process given his weight loss along with recurrent COPD exacerbations, as well as weakened condition. I have re-started his antihypertensive because his blood pressure has rebounded and is now hypertensive. I have also done an EKG. I did not see any changes on that, but his cardiac enzymes are now pending and I have given the patient a nitro and we will reevaluate that as his lab becomes available. Otherwise, we will continue to monitor the patient closely and followup as needed. #[id number] [facility]
[2016-10-30] MEDS ORDERED: SODIUM CHLORIDE 0.9% 250ML 250 ML ONE (16:07)
[2016-10-30] MEDS ORDERED: AZITHROMYCIN IV 500 MG VIAL IVPB ONE (16:08)
[2016-10-30] MEDS: AZITHROMYCIN IV 500 MG in SODIUM CHLORIDE 0.9% 250ML 250 ML IVPB SCH (16:27)
[2016-10-30] MEDS: ENOXAPARIN SODIUM 40 MG/0.4 ML SYG SUBCU SCH (16:29)
[2016-10-30] MEDS ORDERED: MAGNESIUM HYDROXIDE 30 ML UD PO ONE (18:17)
[2016-10-30] MEDS ORDERED: TAMSULOSIN 0.4 MG CAP ONE (19:54)
[2016-10-30] MEDS ORDERED: MIRTAZAPINE 15 MG TAB ONE (19:54)
[2016-10-30] MEDS ORDERED: MELATONIN 3 MG TAB ONE (19:55)
[2016-10-30] MEDS ORDERED: DONEPEZIL HCL 5 MG TAB ONE (19:55)
[2016-10-30] MEDS ORDERED: risperiDONE 0.25 MG TAB ONE (19:55)
[2016-10-30] MEDS ORDERED: TAMSULOSIN 0.4 MG CAP PO SCH (21:00)
[2016-10-30] MEDS ORDERED: MELATONIN 3 MG TAB PO SCH (21:00)
[2016-10-30] MEDS ORDERED: DONEPEZIL HCL 5 MG TAB PO SCH (21:00)
[2016-10-30] MEDS ORDERED: MIRTAZAPINE 15 MG TAB PO SCH (21:00)
[2016-10-30] MEDS ORDERED: risperiDONE 0.25 MG TAB PO SCH (21:00)
[2016-10-31] MEDS ORDERED: SODIUM CHL 0.9% 50ML MIN-BAG+ 0 ML IVPB ONE (00:28)
[2016-10-31] MEDS ORDERED: cefTRIAXone SODIUM 1 GM VIAL ONE ×2 (00:29→07:22)
[2016-10-31] MEDS: SODIUM CHLORIDE 0.9% (FLUSH) 10 ML SYG IV PRN ×2 (00:40→06:27)
[2016-10-31] MEDS: cefTRIAXone SODIUM 1 GM in SODIUM CHL 0.9% 50ML MIN-BAG+ 50 ML IVPB SCH (00:40)
[2016-10-31] MEDS: methylPREDNISolone SODIUM SUC 125 MG/2 ML VIAL IV SCH ×2 (00:41→06:27)
[2016-10-31] MEDS: BENZONATATE PERLES 100 MG CAP PO SCH ×2 (02:40→08:30)
[2016-10-31] MEDS: PANTOPRAZOLE SODIUM TAB 40 MG PO SCH (06:27)
--- NOTE | 2016-10-31 06:53 | RAD ---
EXAM: Two view chest. INDICATION: Chest pain. COMPARISON: Chest x-ray: 10/30/2016. FINDINGS: Cardiac silhouette: Unremarkable. Meghan: Unremarkable. Lobar consolidation: None. Pleural effusion: None. Pneumothorax: None. Other: Lungs are emphysematous Bones: Unremarkable. Other: None. IMPRESSION: Emphysematous appearing lungs Electronically signed by: Remigio Faust MD 10/31/2016 6:52 AM CDT Workstation: [id number]
[2016-10-31] MEDS ORDERED: SODIUM CHL 0.9% 50ML MIN-BAG+ 50 ML IVPB ONE (07:21)
[2016-10-31] MEDS ORDERED: SODIUM CHLORIDE 0.9% 250ML 0 ML ONE (07:21)
[2016-10-31] MEDS ORDERED: AZITHROMYCIN IV 500 MG VIAL IVPB ONE (07:22)
[2016-10-31] MEDS: FLUTICASONE/SALMETEROL 100/50 1 PUFF INH INH SCH (08:16)
[2016-10-31] MEDS: TIOTROPIUM INHALER INH SCH (08:16)
[2016-10-31] MEDS: IPRATROPIUM/ALBUTEROL 3 ML VIAL NEB SCH (08:16)
[2016-10-31] MEDS: guaiFENesin ER TAB 600 MG TAB PO SCH (08:30)
[2016-10-31] MEDS: DULoxetine HCL 30 MG CAP PO SCH (08:30)
[2016-10-31] MEDS: CLOPIDOGREL 75 MG TAB PO SCH (08:30)
[2016-10-31] MEDS: GABAPENTIN 300 MG CAP PO SCH (08:30)
[2016-10-31] MEDS: ATORVASTATIN 20 MG TAB PO SCH (08:30)
[2016-10-31] MEDS: BIFIDOBACTERIUM INFANTIS 4 MG CAP PO SCH (08:31)
[2016-10-31] MEDS: FERROUS GLUCONATE 325 MG TAB PO SCH (08:31)
[2016-10-31] MEDS: HYDROcodone 5MG/APAP 325MG 1 EA TAB PO PRN (10:00)
[2016-10-31] MEDS: BENZOCAINE-MENTH LOZ (CEPACOL) 1 EA LOZ MT PRN (10:00)
[2016-10-31 10:29] VITALS: BP 135/74; TEMP 97.2; O2SAT 100
--- NOTE | 2016-10-31 15:09 | DS ---
DISCHARGE DIAGNOSIS: 1. Chronic obstructive pulmonary disease with acute exacerbation. 2. Extreme progressive weakness with multiple hospital admissions over the last month with pneumonia, chronic obstructive pulmonary disease. 3. Hypotension. 4. Hypoxia with arterial blood gases showing PO2 72 on admission. 5. 25 pound weight loss over the last two to three months. 6. 7 mm pulmonary nodule in the right lower lobe per CT scan dated 09/28/16. 7. Failure to thrive with poor medical compliance. 8. 4 cm ascending aortic aneurysm noted by CT scan. HISTORY OF PRESENT ILLNESS: This is a 76 year-old male patient who came via EMS to the Emergency Room today due to weakness, shortness of breath and low blood pressure. He actually was in the Emergency Room yesterday with the same complaints and was sent home as his lab was within normal limits and his vital signs were within normal limits. Today, he actually could not get up from the chair. He felt extremely weak. EMS reported that his systolic blood pressure was 88 and he desaturated to 90% on room air and was very tachypneic with increased work of breathing. In the Emergency Room, he received several breathing treatments. His lab showed a white count of 8.3, hemoglobin 12.1, hematocrit 36.4. His blood gas showed a PO2 of 73. Sodium 139, potassium 4, chloride 104, carbon dioxide 27, BUN 15, creatinine 0.89, glucose was 111. Troponin was slightly elevated at 0.07. Lactic acid was 1.3. CTA of the chest per radiology interpretation showed no evidence of pulmonary embolism. There are underlying changes of chronic obstructive pulmonary disease present of mild parenchymal scarring in the right lower lobe of the lung as well as the presence of a mild infiltrate in the left lower lobe of the lung. There is also mild aneurysm dilatation of the ascending aorta measuring 4.0 cm across. He actually has a history of severe emphysema and has actually been in and out of the hospital multiple times over just the last few weeks, and was actually in Swing Bed admission last week where he was discharged home on home health. He has not had his hospital followup with his primary care physician, Dr. Ferguosn, and is scheduled for followup on Sunday, the . He lives at home with his and she has MSSheri Sabillon was called for hospital admission. HOSPITAL COURSE: The patient was admitted to the hospital and started on aggressive pulmonary regimen. He has improved somewhat. Arrangements have been made for him to go to [facility] for further physical therapy rehabilitation. The patient has had a history of a pulmonary nodule, 7 mm, noted on 09/28/16. This needs further evaluation. The patient has a 25 pound weight loss as well which needs to get outpatient evaluation. A subsequent CT scan was done in the hospital and the 7mm pulmonary nodule was not mentioned. A message has been relayed to the radiologist, but this has not been addressed. So far, there is no comment on the second report of whether there is a 7 mm nodule, but this will need to be followed closely. DISPOSITION: The patient is being discharged to [facility] for continued steroid taper and aggressive pulmonary hygiene. He is to have close followup with his primary care physician when he is discharged from [facility]. #[id number] MTDD
== END 2016-10-31 10:20 ==
LOC: ER 10:51 → MS 13:24
PROVIDERS: ADMIT Nurse Practitioner Acute Care; ATTEND Family Medicine
DX: J44.1 Chronic obstructive pulmonary disease with (acute) exacerbation (principal); R53.1 Weakness; I95.9 Hypotension, unspecified; J96.91 Respiratory failure, unspecified with hypoxia; R63.4 Abnormal weight loss; R91.1 Solitary pulmonary nodule; R62.7 Adult failure to thrive; I71.4 Abdominal aortic aneurysm, without rupture; Z68.1 Body mass index [BMI] 19.9 or less, adult; E78.5 Hyperlipidemia, unspecified; I10 Essential (primary) hypertension; I25.10 Atherosclerotic heart disease of native coronary artery without angina pectoris; I25.2 Old myocardial infarction; N40.1 Benign prostatic hyperplasia with lower urinary tract symptoms; R39.15 Urgency of urination; I35.1 Nonrheumatic aortic (valve) insufficiency; I34.0 Nonrheumatic mitral (valve) insufficiency; I36.1 Nonrheumatic tricuspid (valve) insufficiency; I27.2 Other secondary pulmonary hypertension; K21.9 Gastro-esophageal reflux disease without esophagitis; Z79.02 Long term (current) use of antithrombotics/antiplatelets; Z79.52 Long term (current) use of systemic steroids; Z79.899 Other long term (current) drug therapy; Z87.891 Personal history of nicotine dependence; Z96.651 Presence of right artificial knee joint; Z98.42 Cataract extraction status, left eye; Z98.41 Cataract extraction status, right eye
CPT/HCPCS: 36415 ×5; 36600; 71020 ×2; 71275; 80053 ×3; 82550 ×2; 82553 ×2; 82803; 82805; 83605; 84484 ×3; 85025 ×3; 93005 ×2; 94640 ×9; 94644; 94664 ×2; 94760 ×2; 94762 ×2; G0378; J0456 ×2; J0696 ×4; J1650 ×2; J2930 ×6; J7040 ×2; J7050 ×6; J7620 ×8